=== PATIENT | male | born 1960 | race Caucasian/White ===

== ENCOUNTER 2024-06-22 06:03 | Day surgery (SDC) | payer BC, SELFPAY ==
[2024-06-22] VITALS (18 sets, daily range): BP systolic 129–154; BP diastolic 46–85; BMI 27.1
[2024-06-22] MEDS: NSS 257 ML IV (06:30)
[2024-06-22 08:30] LABS: ACT-LR - POC 245 Seconds (116-155)
[2024-06-22] MEDS: NSS 1000 IV (09:20)
--- NOTE | 2024-06-22 11:42 | ITS.CL.CATH ---
Consulting Marine Engineer - Catheterization
Cardiac Catheterization
Procedure Report:
RIGHT AND LEFT HEART CATHETERIZATION
Date of Procedure: June 22, 2024
Primary Care Physician: Dr. Ros Parker
Primary [employer]: Dr. Jimy Garza
Procedures performed:
1: Coronary angiography
2: Left ventricular hemodynamic assessment
3: Right heart catheterization
INDICATION: The patient is a 64-year-old man who is referred for right and left heart cardiac catheterization in light of known significant aortic valve disease, new exertional chest burning/tightness, and an episode of syncope. The syncopal
episode was encountered while riding his bike and he has had no further exertional presyncope or syncope.
ACCESS: The patient was prepped and draped in usual sterile fashion. A 6 Chilean sheath was placed in the right radial artery using the Seldinger over the wire technique. A 5 Chilean sheath was then placed in the right brachial vein using the same
technique.
HEMODYNAMIC FINDINGS (mmHg):
RA(a,v,m): 12, 11, 10
RV(s/d,EDP): 33/11, 14
PA(s/d/m): 35/17, 24
PCWP(a,v,m): 17, 20, 17
LV(s/d,EDP): 154/12, 17
Ao(s/d,m): 122/68, 91
Oxygen Saturations (mg/dl):
PA: 72% on room air
LV: 93% on room air
Cardiac Output/Index (l/min / l/min/m2):
Estimated Laron Method: 5.7 / 2.8
VALVE HEMODYNAMICS:
Aortic Valve
peak to peak gradient (mmHg): 32
mean gradient (mmHg): 34
valve area (cm2): 1.1
ANGIOGRAPHIC FINDINGS:
Single-plane Left Ventriculography performed in the GONZALES projection: Not done. Normal LVEF by recent echo.
Coronary Angiography:
Dominance: Right
Left Main: Large-caliber, normal.
Left Anterior Descending: The LAD is a large-caliber vessel that has a smooth 10% proximal stenosis. The LAD has a focal 70% stenosis followed by a tandem 40% mid stenosis just after the takeoff of the major diagonal branch which is widely patent
with moderate nonobstructive luminal irregularities.
Left Circumflex: The left circumflex is a large-caliber nondominant system that gives rise to 3 major branches. The first major obtuse marginal branch is a large-caliber vessel that is widely patent. The second obtuse marginal branch is a smaller
bifurcating vessel that is also widely patent. The circumflex terminates in a left-sided posterior left ventricular branch which is large caliber and widely patent without focal disease.
Right Coronary: The right coronary artery has a vertical anterior takeoff. There is a smooth proximal 30 to 40% stenosis. The remainder the vessel as only mild luminal irregularities and gives rise to a relatively large caliber posterior
descending artery that has normal flow.
Fluoroscopy Time (min): 9.1
Radiation Dose (mGy): 45
DAP (Gy.cm2): 32
Closure device: None
Complications: None
ASSESSMENT:
1: Single-vessel obstructive disease involving the mid LAD as described above.
2: Moderate aortic valvular stenosis.
3: Of note the patient developed a left bundle branch block with passage of a wire and catheter into the left ventricle. This persisted with intermittent narrow QRS during the case but at the end of the case he had a persistent left bundle branch
block on telemetry.
CONCLUSIONS and RECOMMENDATIONS:
1: Continue medical therapy for coronary artery disease.
2: Will present this case to the valve team Thursday morning to discuss the optimal treatment strategy. With his history of syncope I think it is reasonable to consider surgical aortic valve replacement with WILSON to the LAD. That said his syncope
certainly could have been vagally mediated and therefore stenting the LAD with clinical follow-up and then later aortic valve intervention could also be considered. Will discuss with his primary knife machine operator Dr. Garza and come up with a plan
after the valve team conference on Thursday.
3: In light of his persistent left bundle branch block, I will hold his metoprolol for now. The patient is instructed not to engage in vigorous activity until we have definitively treated his coronary disease and possibly his valve.
Gurmeet Bryant M.D.
Copy to: Dr. oRs Parker
== END 2024-06-22 13:10 | disposition home or self-care (01) ==
LOC: CATH 06:03
PROVIDERS: ATTENDING PHYSICIAN Internal Medicine Interventional Cardiology; FAMILY PHYSICIAN Family Medicine; OTHER PHYSICIAN Internal Medicine Cardiovascular Disease
DX: I25.10 Atherosclerotic heart disease of native coronary artery without angina pectoris (principal); R55 Syncope and collapse; I35.9 Nonrheumatic aortic valve disorder, unspecified; I44.7 Left bundle-branch block, unspecified; I35.0 Nonrheumatic aortic (valve) stenosis
CPT/HCPCS: 85347; 93005; 93460; C1894; Q9967

== ENCOUNTER 2024-07-06 09:07 | Day surgery (SDC) | payer BC, SELFPAY ==
[2024-07-06] VITALS (19 sets, daily range): BP systolic 116–144; BP diastolic 64–81; BMI 28.0
[2024-07-06 10:58] LABS: ACT-LR - POC 313 Seconds (116-155)
--- NOTE | 2024-07-06 11:32 | ITS.CL.ANGIO ---
Senior Compensation Consultant - Angioplasty
Angioplasty
Procedure Report:
LEFT HEART CATHETERIZATION
Date of Procedure: July 06, 2024
Procedures performed:
1: Percutaneous coronary intervention left anterior descending artery with placement of 2 overlapping drug-eluting stents (2.75 x 15 mm Bradford and 2.5 x 26 mm Ziggy)
Primary Care Physician: Dr. Ros Parker
Primary Supervisor Model Making: Dr. Jimy Garza
INDICATION: The patient is a 64-year-old man with a past medical history of aortic stenosis and new exertional chest discomfort suspicious for angina who underwent cardiac catheterization on June 22 which revealed focal high-grade mid LAD disease
along with moderate aortic stenosis and the incidental finding of a intermittent left bundle branch block. 3-day Holter after the cath showed 3 continuous days of left bundle branch block with no significant pauses. Today he is in a narrow QRS
rhythm. He was presented to the valve team and after presentation we have elected to proceed with PCI of the LAD. The patient was pretreated with aspirin and Plavix.
ACCESS: The patient was prepped and draped in usual sterile fashion. A 6 Hungarian sheath was placed in the right radial artery using the Seldinger over the wire technique.
HEMODYNAMIC FINDINGS (mmHg):
Ao(s/d,m): 114/68, 87
ANGIOGRAPHIC FINDINGS:
Coronary Angiography:
Please refer to full diagnostic cath performed 06/22/2024.
Percutaneous Coronary Intervention (PCI): The patient was pretreated with aspirin and Plavix. Unfractionated heparin was given. The left main was engaged with a 6 Hungarian XB 3.5 guiding catheter. A Hi-Torque floppy wire was easily advanced across
the lesion and into the distal vessel. Predilation was performed with a 2.5 x 20 mm balloon. Next a 2.5 x 26 mm Ziggy drug-eluting stent was deployed distally. A second 2.75 x 15 mm Ziggy stent was deployed proximally taking care to avoid jailing
the diagonal branch. The distal portion of the stent was postdilated high-pressure 16 emerson with a 2.5 mm diameter balloon. The more proximal section including the overlap was postdilated with a 2.75 mm diameter noncompliant balloon at 16 emerson. Care
was taken to stay within the stented margins.
FINAL RESULT: 0% in-stent residual stenosis with an excellent angiographic result and LUKE-3 flow in all vessels.
Fluoroscopy Time (min): 7.7
Radiation Dose (mGy): 739
DAP (Gy.cm2): 40
Closure device: None. A TR band was applied for hemostasis at the right wrist.
Complications: None.
ASSESSMENT:
1: Successful PCI of the LAD with placement of 2 overlapping stents as described above.
CONCLUSIONS and RECOMMENDATIONS:
1: Routine post drug-eluting stent medical therapy and monitoring with uninterrupted aspirin and Plavix for a year and aspirin 81 mg daily indefinitely.
2: Clinical follow-up as planned with surveillance echoes for aortic stenosis.
Gurmeet Bryant M.D.
Copy to: Dr. Ros Parker
[2024-07-06 13:13] LABS: ACT-LR - POC > 397 Seconds (116-155)
--- NOTE | 2024-07-06 15:17 | W.PN.UPDATE ---
Update Note
Progress Note Update
64 yo WM s/p PCI LAD x 2 Jorge (same day). He feels good, no cp, sob, cyndee diet, R rad site c/d/i, EKG SB no ST changes. He will continue DAPT ASA/Plavix. Cardiac rehab c/s. Activity restrictions reviewed. He will f/u Dr. Garza in 2 weeks. He is for
d/c home after 4pm.
Procedures performed:
1: Percutaneous coronary intervention left anterior descending artery with placement of 2 overlapping drug-eluting stents (2.75 x 15 mm Ziggy and 2.5 x 26 mm Ziggy)
Primary Care Physician: Dr. Ros Parker
Primary Stave Hewer: Dr. Jimy Garza
INDICATION: The patient is a 64-year-old man with a past medical history of aortic stenosis and new exertional chest discomfort suspicious for angina who underwent cardiac catheterization on June 22 which revealed focal high-grade mid LAD disease
along with moderate aortic stenosis and the incidental finding of a intermittent left bundle branch block. 3-day Holter after the cath showed 3 continuous days of left bundle branch block with no significant pauses. Today he is in a narrow QRS
rhythm. He was presented to the valve team and after presentation we have elected to proceed with PCI of the LAD. The patient was pretreated with aspirin and Plavix.
== END 2024-07-06 15:54 | disposition home or self-care (01) ==
LOC: CATH 09:07
PROVIDERS: ATTENDING PHYSICIAN Internal Medicine Interventional Cardiology; FAMILY PHYSICIAN Family Medicine; OTHER PHYSICIAN Internal Medicine Cardiovascular Disease
DX: I25.10 Atherosclerotic heart disease of native coronary artery without angina pectoris (principal); R07.89 Other chest pain; I35.0 Nonrheumatic aortic (valve) stenosis; I44.7 Left bundle-branch block, unspecified; I10 Essential (primary) hypertension; E78.00 Pure hypercholesterolemia, unspecified; Z79.02 Long term (current) use of antithrombotics/antiplatelets; Z79.82 Long term (current) use of aspirin
CPT/HCPCS: C1725; C1769; C1894; C1887; 85347; 93005; C1874; C9600; Q9967

== ENCOUNTER 2025-01-23 12:01 | Inpatient (IN) | payer BC, SELFPAY ==
[2025-01-23] VITALS (11 sets, daily range): BP systolic 101–117; BP diastolic 65–82; BMI 27.3
--- NOTE | 2025-01-23 10:09 | W.PN.CARDCBS ---
Today's Communication / Plan
-
LHC
trend troponin/cpk to peak
GDMT for heart failure
Impression / Plan
-
This is the H&P update
H&P scanned into chart
PCP: Fani Mayen MD
CDY: Jimy Garza MD
64 y/o white male, PMH sig for CAD, recent LAD PCI w/2 overlapping DONNELL (07/06/24), LBBB, moderate , taking DAPT w/asa, plavix.
Presented to [facility] ER after exertional chest pain on exercise bike. He felt like he was going to pass out, laid down on a bed and called 911. He was hypotensive and ashen. CXR was suspected to be pulmonary edema. HS troponin at 4646, CPK 4961, MB
600 and still trending. Echo this morning with mod-severe LVS dysfunction, EF 25-30%, anteroseptal HK, mod-sev (PG/MG 58.5/37.2, CHIDI 0.8cm2). This is worse than echo 12/05/24 where EF was 55-60%, no WMA and mod (PG/MG 56.7/33.3, CHIDI 0.78cm2).
He was started on heparin and transferred today for [facility].
IMPRESSION:
Acute NSTEMI
CAD, LAD PCI w/2 overlapping DONNELL (07/06/24- at )
LBBB
New cardiomyopathy
New acute systolic HFrEF 25-30%
Bicuspid AV w/Moderate-severe
Carotid disease, s/p R CEA (2017), LICS 50-70%
HTN
HLD
PLAN:
Exertional near syncope while exercising
Echo worsened with sig drop in EF, mod-sev
Troponin/CPK sig elevated and still trending- monitor to peak
On DAPT w/asa, plavix- got doses this morning
Heparin gtt for now
Suspected LAD in stent restenosis in combination with moderate
[facility] today
continue to trend trop/CPK to peak
Holding lisinopril d/t hypotension/SBP low 100s
will need GDMT for new acute systolic HFrEF- dapagliflozin 10/d, add BB, adjust lisinopril as tolerated for BP
check lipid profile and continue rosuvastatin 40/d
cardiac rehab consult
followup with Dr. Garza at d/c
Echo 01/23/25-
1. Left ventricular ejection fraction, by visual estimation, is 25 to 30%.
2. Moderately to severely decreased left ventricular systolic function.
3. Mid-Distal Septal; Mid-Distal AnteroSeptal; Mid-Distal Anterior Severe Hypokinesis.
4. Moderate to severe aortic valve stenosis. Mild aortic regurgitation.
5. AoV velocity of 3.83 m/s; Peak aortic valve gradient = 58.5 mmHg; Mean gradient = 37.2 mmHg; AoV Area by continuity equation = 0.80 cm2; AoV Dimensionless Index = 0.24.
6. Concentric remodeling of the left ventricle.
7. Grade 1 LV diastolic dysfunction, impaired relaxation.
8. Normal right ventricular size and systolic function.
9. Right atrial pressure of (3 mmHg), the estimated right ventricular systolic pressure is normal at (40.0 mmHg).
10. Normal left atrium by volume index (25.9 mL/m2) and normal right atrium by area (11.0 cm2).
11. Moderate mitral valve regurgitation is seen.
12. Compared to 11/2024, ejection fraction is reduced (was 55-60%)
Progress Note - Embossing Press Operator Molded Goods
Subjective
Date of Service: January 23, 2025
[2025-01-23 12:19] LABS: Total CK 3172 U/L (55-170)
--- NOTE | 2025-01-23 13:26 | PTCARENOTE ---
Patient admitted from the [facility] after transferred here for cardiac cath from [facility]. Radial band in place right wrist, strong radial pulse palpable with pulse ox of 95% on the right hand, no signs of bleeding or hematoma. Oriented to the room and
plan of care. Dr. Canas in to speak with the patient after meeting with the family. TAVR coordinator in to speak with the patient. SR on the monitor, monitoring VS- patient eating lunch now, call carballo in reach.
--- NOTE | 2025-01-23 14:12 | CONSULT.CT ---
Consultation
-
Date/Time Consultation Requested: 01/23/25
Date/Time Consultation Performed: 01/23/25
Requesting Provider: Missael
Performing Provider: Nora Baldwin PA-C for Dr. Pedro Foy
Reason for Consultation: AVR eval
Patient History
Physicians
Family Physician: Fani Mayen
Outpatient Senior Storage Administrator: Jimy Garza
Inpatient Senior Storage Administrator: Missael/LISET
History of Present Illness
Patient is a very pleasant 64-year-old male with past medical history of hypertension, hyperlipidemia, bilateral carotid stenosis status post right CEA, CAD status post PCI to the LAD in June 2024, and known moderate bicuspid aortic stenosis who
presented to [place] after a near syncopal episode while riding his bike. Repeat echo at [place] this morning demonstrated a now reduced EF of 25 to 30% with moderate to severe , CHIDI 0.8 cm� and mean gradient of 37 mmHg. Troponins were
elevated, ruling in for non-STEMI. patient was transferred to [place] for left heart catheterization which demonstrated a patent LAD stent, no significant changes in CAD. We are asked to evaluate him for aortic valve replacement.
Past Medical History
Past Medical History: Other
Hypertension
Hyperlipidemia
Bilateral carotid stenoses, status post right carotid endarterectomy in 2017
Bicuspid aortic valve with at least moderate stenosis
Past Surgical History
Right carotid endarterectomy 2016
Dental History
Follows with his regular dentist every 6 months--no known active issues (Dr. Sharyn Caputo- [facility])
Family History
Father: Still Living (had bypass surgery in his 70s)
Family Medical History: CAD
Social History
Alcohol: Occasional (1-2/week)
Drug: None
Tobacco: Non-Smoker (never)
Personal: (, Tatianna, at bedside)
Living: With Family
Employment: Employed
Allergies
Allergy/AdvReac Type Severity Reaction Status Date / Time
No Known Allergies Allergy Verified 01/23/25 10:54
Home Medications
�Medication �Instructions �Recorded �Confirmed �Type
aspirin 81 mg capsule 81 mg PO DAILY 06/22/24 01/23/25 History
lisinopril 10 mg tablet 10 mg PO DAILY 06/22/24 01/23/25 History
magnesium 250 mg tablet 250 mg PO DAILY 06/22/24 01/23/25 History
melatonin 10 mg tablet 10 mg PO HS PRN sleep 06/22/24 01/23/25 History
rosuvastatin 40 mg tablet 40 mg PO DAILY 06/22/24 01/23/25 History
vit [id number] D3-calc cit-Zn 1,000 mg PO DAILY 06/22/24 01/23/25 History
clopidogrel 75 mg tablet (Plavix) 75 mg PO DAILY 07/06/24 01/23/25 History
Review of Systems
-
History Source: Patient
General: Denies Fever, Fatigue or Chills
HEENT: Denies Visual Changes or Hoarseness
Respiratory: Denies SOB or LUX
Cardiac: Reports Chest Pain and Known Vascular Disease; Denies Edema
Abdomen/GI: Denies Nausea or Vomiting
: Denies Dysuria
Musculoskeletal: Denies Arthralgias or Joint Pain
Skin: Denies Itching
Neurological: Reports Other (near syncope--lightheadedness); Denies CVA, TIA, Weakness or Seizures
Vascular: Denies Claudication
Physical Exam
Vital Signs
Temp 98.2 F 01/23/25 10:26
Temp route: Oral 01/23/25 10:26
Pulse 99 01/23/25 13:30
Rhythm: Normal sinus rhythm 01/23/25 12:15
With- Bundle Branch Block Confi 01/23/25 12:15
Resp Rate 19 01/23/25 10:26
Blood pressure 104/74 01/23/25 12:10
MAP (cuff-Pawel Monitor) 83 01/23/25 12:10
SaO2 93 01/23/25 13:15
Oxygen Mode of Delivery Room air 01/23/25 10:26
Can the patient verbally communicate their pain? Yes 01/23/25 12:29
Actual Weight 86.4 kg 01/23/25 10:57
Body Mass Index (BMI) 27.3 01/23/25 10:57
Labs
Troponin I 39.700 ng/ml H* 01/23/25 10:39
Diagnostic Studies
Echo 01/23/25-[facility]
1. Left ventricular ejection fraction, by visual estimation, is 25 to 30%.
2. Moderately to severely decreased left ventricular systolic function.
3. Mid-Distal Septal; Mid-Distal AnteroSeptal; Mid-Distal Anterior Severe Hypokinesis.
4. Moderate to severe aortic valve stenosis. Mild aortic regurgitation.
5. AoV velocity of 3.83 m/s; Peak aortic valve gradient = 58.5 mmHg; Mean gradient = 37.2 mmHg; AoV Area by continuity equation = 0.80 cm2; AoV Dimensionless Index = 0.24.
6. Concentric remodeling of the left ventricle.
7. Grade 1 LV diastolic dysfunction, impaired relaxation.
8. Normal right ventricular size and systolic function.
9. Right atrial pressure of (3 mmHg), the estimated right ventricular systolic pressure is normal at (40.0 mmHg).
10. Normal left atrium by volume index (25.9 mL/m2) and normal right atrium by area (11.0 cm2).
11. Moderate mitral valve regurgitation is seen.
12. Compared to 11/2024, ejection fraction is reduced (was 55-60%)
[facility] 01/23/25 ()--full report unavailable to me now, but per label maker [employer]--stable CAD.
Exam
General: Well Developed, Well Nourished and No Apparent Distress
HEENT: Normocephalic, Anicteric and Moist Mucous Membranes
Neck: Trachea Midline; Negative JVD or Mass
Respiratory: Clear; Negative Wheezes, Crackles or Rhonchi
Cardiac: Regular Rhythm and Murmur (+systolic 3/6)
GI: Soft and Non Tender
Rectal: Deferred by Provider
Skin: Warm and Dry
Neuro: Nonfocal/Grossly Intact
Psych: Calm
Assessment / Plan
-
severe aortic stenosis
exertional near syncope
new acute HFrEF (25-30%)
NSTEMI
- Pt amenable to proceeding with further eval for aortic valve replacement--at this time will order US carotids, CTA chest, panelipse & labs. Awaiting echo films from [facility]. Pt did take plavix this morning, therefore will need approx 5 day washout
prior to proceeding with surgery. Pt expressed interest in going home and returning for surgery--will defer to cardiology (and pt aware of that).
- Full eval by Dr. Foy to follow.
Data Reviewed
-
EKG: Report Reviewed by me
Plaster Foreman: Image Personally Visualized and interpreted and Discussed with Physician
Echo: Report Reviewed by me
Labs: Labs Reviewed by me
--- NOTE | 2025-01-23 14:51 | CM ---
Reviewed chart. Met with Mr. Prasad to review discharge plans. He states prior to admission he resides alone in a two story home with two steps to enter. He states he has a fullflight of steps to get to bedroom/full bathroom. He states he does
not have a bathroom on the lower level. He states prior to admission he was independent with ambulation and adls. He states he does not have any DME in the home. He states he does not know if he has a prescription plan. Telephone call to [facility]. Telephone call to ([phone]) to check on coverage for medications. The card he has is a discount card, not a prescription plan. Medical work-up in progress. The discharge plan is to go to SNF/Rehab. when medically stable.
--- NOTE | 2025-01-23 14:52 | ITS.CL.CATH ---
First Coat Sander - Catheterization
Cardiac Catheterization
Procedure Report:
LEFT HEART CATHETERIZATION
Date of Procedure: January 23, 2025
Referring: Dr. Villa Tello
PROCEDURES:
1. Left heart catheterization with coronary and single-plane left ventriculography
INDICATION: This is a 64-year-old gentleman with a complex recent medical history. He has a known bicuspid aortic valve and developed exertional chest tightness and throat tightness in May 2024. He experienced a syncopal episode while riding his
Peloton bike. He had known aortic stenosis with a mean aortic valve gradient measuring 34 mmHg at the time of coronary angiography on 06/22/2024. Coronary angiography at that time was notable a focal 70% and tandem 40% stenoses in the mid to distal
LAD following the origin of the major diagonal branch which had moderate noncritical luminal irregularities. There was a proximal 30 to 40% stenosis in the RCA. He underwent successful stenting of the LAD on July 06, 2024 with placement of
overlapping 2.75 x 15 mm and 2.5 x 26 mm Louisa stents. He did reasonably well since that time. Several weeks ago he experienced some exertional throat tightness and was seen by Dr. Garza. His most recent echocardiogram on 12/05/2024 suggested
stable aortic valve gradients with presence of a bicuspid valve and mean gradient of 33 mmHg.
This past weekend he was pushing himself on the Peloton and he began feeling poorly. He noticed some vague chest tightness and dizziness. He laid down on his bed where his found him minimally responsive. 911 was called and when EMS arrived
he was improving and more interactive. He was pain-free and was admitted to [facility] where his subsequent CPKs increased to 4000 and troponin increased to 4000. An echocardiogram earlier today was notable for new LV dysfunction with a
visually estimated ejection fraction of 25-30% with mid to distal anterior severe hypokinesis and a mean aortic valve gradient of 32 mmHg. He is now referred for repeat coronary angiography in the setting of new LV dysfunction and elevated troponin.
ACCESS: Right radial artery, 6 Maltese sheath
HEMODYNAMICS : (mmHg)
AO (s/d) : 92/67, 79
LV (s/d) : 130/18
LVEDP : 25
AORTIC VALVE:
Mean Gradient: 30 mmHg
CORONARY FINDINGS
DOMINANCE: Right
LEFT MAIN: Normal
LEFT ANTERIOR DESCENDING: The LAD arises normally from the left main and runs in the anterior interventricular groove. There are overlapping Ziggy stents in the mid LAD beyond a moderate caliber diagonal branch. The overlapping stented segment is
widely patent. The LAD beyond the stented segment is free of focal obstructive coronary disease and angiographically it looks quite stable when compared to May 2024. The only sizable diagonal branch arises just proximal to the mid LAD stents and
has minor ostial narrowing and 60% stenosis in the mid vessel.
CIRCUMFLEX: The circumflex is a medium caliber nondominant vessel. OM1 is very small and subtotally occluded near its origin. This was noted on the prior angiogram. OM 2 is a moderate caliber vessel supplying a large vascular territory and is
widely patent. The circumflex then continues in the AV groove supplying a bifurcating posterolateral branch and terminates in a moderate-sized posterolateral branch
RIGHT CORONARY ARTERY: The right coronary artery is a dominant vessel with a 40% proximal stenosis and 40% distal stenosis. The PDA has a 40% proximal stenosis. Angiographically the right coronary artery looks angiographically largely unchanged
when compared to the most recent catheterization from May 2025
VENTRICULOGRAPHY: Left ventriculography is performed in an GONZALES projection. The digital single-plane left ventricular ejection fraction is visually estimated at 40% with anterolateral and apical hypokinesis noted
RADIATION SUMMARY: Fluoro Time (min): 3.5, Dose (mGy): 378, DAP (Gy.cm2) : 30.8
Closure Device: TR band
CONCLUSIONS
1. Stable coronary anatomy with patent overlapping mid LAD stents
2. New LV dysfunction
3. Probable severe symptomatic aortic stenosis
RECOMMENDATIONS
1. It is difficult to correlate significant elevation in troponin and CPK to resting moderate-severe aortic stenosis by mean gradient assessment. However, his symptoms are suggestive that the aortic stenosis is likely clinically relevant causing
near syncopal symptoms as he was pushing himself to high levels of exercise on his Peloton bike. He experienced similar episodes of syncope/near syncope in the summer 2023.
2. New LV dysfunction: Will repeat echocardiogram with contrast assessment of LV function
Copy to: Dr. Jimy Garza
--- NOTE | 2025-01-23 15:22 | CM ---
Reviewed chart. Met with and Mrs. Tripp to review discharge plans. He states prior to admission he resides with his spouse in a two story home with two steps to enter. He states he has a full flight of steps to get to bedroom/full
bathroom. He states he has a powder room on the first floor. He states prior to admission he was independent with ambulation and adls. He states he does not have any DME in the home. He states he has a prescription plan and uses [facility].
Medical work-up in progress. The discharge plan is to return home with his spouse when medically stable.
--- NOTE | 2025-01-23 16:15 | PTCARENOTE ---
Radial band off of the right wrist, dressing is dry and intact. OOB to the bathroom and voided qs. Tolerated sitting oob in the chair, denies any chest pain or sob. Labs drawn, waiting for CT angio.
[2025-01-23 16:43] LABS: ALT (SGPT) 68 U/L (0-50); AST (SGOT) 375 U/L (17-59); Albumin 4.1 g/dl (3.5-5.0); Alkaline Phosphatase 48 U/L (38-126); Blood Urea Nitrogen 12 mg/dl (9-20); Calcium 9.2 mg/dl (8.4-10.2); Carbon Dioxide 30 mmol/L (22-30); Chloride 99 mmol/L (98-107); Estimated Creatinine Clearance 110 ml/min; Glucose 128 mg/dl (70-99); Potassium 3.9 mmol/L (3.5-5.1); Sodium 134 mmol/L (135-145); Total Bilirubin 1.1 mg/dl (0.2-1.3); eGFR > 60.00
[2025-01-23 18:25] LABS: Urine Albumin Negative (Neg - Trace); Urine Bilirubin Negative (Negative); Urine Character Clear (Clear); Urine Color Yellow; Urine Glucose Negative (Negative); Urine Ketone Negative (Negative); Urine Leukocyte Negative (Negative); Urine Nitrite Negative (Negative); Urine Occult Blood Negative (Negative); Urine Urobilinogen Negative (Neg - 1+)
--- NOTE | 2025-01-23 20:07 | PTCARENOTE ---
Received patient at change of shift. A&Ox3. Sitting with bedside. Vitals stable. Room air. Right radial site clean, dry, and intact. No ecchymosis or hematoma present at this time. Discussed plan of care for evening. Patient verbalized
understanding. Call carballo within reach.
[2025-01-24 05:28] VITALS: BP 104/63
[2025-01-24 06:12] LABS: APTT 27.8 Sec (23.4-35.0); INR 1.08; PT 14.3 Sec (11.4-14.6)
[2025-01-24 06:15] LABS: Hematocrit 37.1 % (39.0-52.0); Hemoglobin 12.9 g/dL (13.0-18.0); Mean Corp Hgb Conc. 34.8 g/dL (33.0-37.0); Mean Corpuscular Hgb 31.2 pg (27.0-31.0); Mean Corpuscular Volume 89.6 fL (80.0-94.0); Mean Platelet Volume 9.5 fL (7.4-10.4); Platelet Count 158 10^3/uL (130-400); Red Blood Cell Count 4.14 10^6/uL (4.70-6.10); Red Cell Dist. Width 12.3 % (11.5-14.5)
[2025-01-24 06:17] LABS: ALT (SGPT) 50 U/L (0-50); AST (SGOT) 181 U/L (17-59); Albumin 3.3 g/dl (3.5-5.0); Alkaline Phosphatase 47 U/L (38-126); Blood Urea Nitrogen 11 mg/dl (9-20); Calcium 9.1 mg/dl (8.4-10.2); Carbon Dioxide 27 mmol/L (22-30); Chloride 103 mmol/L (98-107); Estimated Creatinine Clearance 110 ml/min; Glucose 98 mg/dl (70-99); HDL Cholesterol 51 mg/dl; LDL Cholesterol, Calculated 71 mg/dl; Potassium 4.2 mmol/L (3.5-5.1); Sodium 135 mmol/L (135-145); Total Bilirubin 1.1 mg/dl (0.2-1.3); Total CK 804 U/L (55-170); Total Cholesterol 144 mg/dl (50-199); Total Protein 5.3 g/dl (6.3-8.2); Triglyceride 114 mg/dl (10-149); Very Low Density Lipoprotein 22 mg/dl (0-30); eGFR > 60.00
[2025-01-24 06:51] LABS: CKMB 32.2 ng/ml (0.0-3.4)
[2025-01-24 07:54] VITALS: BP 101/64
--- NOTE | 2025-01-24 08:21 | W.PN.CARDCBS ---
Addendum entered and electronically signed by Brant Hooper DO 01/24/25 13:16:
I saw and examined the patient.
The Watermaster's note was reviewed and I agree with the note.
Comment:
Plan:
Reviewed cardiac catheterization with patient
Echo pending today to reevaluate aortic stenosis gradients.
Patient being evaluated for inpatient versus outpatient SAVR, cont plavix washout
Discussed with family at bedside.
Original Note:
Today's Communication / Plan
-
Echo pending to re-eval gradients
Considering d/c to home vs inpatient Plavix washout for SAVR
Impression / Plan
-
PCP: Fani Mayen MD
CDY: Jimy Garza MD
Impression:
Admitted to [facility] with near syncope and hypotension 01/22/25
Transferred to for cardiac cath 01/23/25
Nonischemic myocardial injury Troponin elevation due to severe
peak Troponin at [facility] 4646
CAD s/p LAD PCI w/2 overlapping DONNELL at 07/06/24
patent by cardiac cath 01/23/25
LBBB
New nonischemic cardiomyopathy EF 25-30%
Trileaflet, but functionally bicuspid AV with moderate peak/mean 56.7/33.3 mmHg and CHIDI 0.78 cm sq by echo at [facility] 12/05/24
Carotid disease, s/p R CEA (2017), LICS 50-70%
HTN
HLD
Echo 12/05/24: [facility] study, EF 55 to 60%, calcified anatomically trileaflet but functionally bicuspid AV with moderate AAS peak/mean 56.7/33.3 mmHg and CHIDI 0.78 cm sq, mild MR
Echo 01/24/25: Study pending
PLAN:
-Patient with patent previously placed LAD stents by cath 01/23/25 and otherwise stable coronary anatomy despite Troponin up to 4646 at [facility] which is equivalent to about 46 using the Troponin assay. Symptoms on presentation and Troponin might be due
to which was moderate by last echo 12/05/24. MPG at time of cath 01/23/25 was 30 mmHg.
-Recheck echo 01/24/25.
-Patient was seen by the CT surgery team and is being evaluated for SAVR.
-Patient is s/p LAD PCI 07/06/24 and has been taking aspirin and Plavix since then. Last dose of Plavix was 01/23/25 AM
-Pending echo patient might be stable for d/c to home while he awaits Plavix washout with the provision that he avoid strenuous activity and this would be patient's preference.
-Outpatient dose of aspirin has been continued
-Outpatient dose of lisinopril 10 mg daily has been stopped due to hypotension and
-Patient is not chronically on BB and will not start due to hypotension
-Eventually start SGLT-2 once post-op and stable
-LDL 71 and outpatient dose of Crestor 40 mg daily has been continued
-LVEDP 25, no evidence of acute HF
HPI: 64 y/o white male, PMH sig for CAD, recent LAD PCI w/2 overlapping DONNELL (07/06/24), LBBB, moderate , taking DAPT w/asa, plavix.
Presented to [facility] ER after exertional chest pain on exercise bike. He felt like he was going to pass out, laid down on a bed and called 911. He was hypotensive and ashen. CXR was suspected to be pulmonary edema. HS troponin at 4646, CPK 4961, MB
600 and still trending. Echo this morning with mod-severe LVS dysfunction, EF 25-30%, anteroseptal HK, mod-sev (PG/MG 58.5/37.2, CHIDI 0.8cm2). This is worse than echo 12/05/24 where EF was 55-60%, no WMA and mod (PG/MG 56.7/33.3, CHIDI 0.78cm2).
He was started on heparin and transferred today for [facility].
Progress Note - Medical Billing Supervisor
Subjective
Date of Service: January 24, 2025
He feels well, no chest pain or near syncope
Objective
Labs:
01/24/25 05:35
01/24/25 05:35
Labs
Hgb 12.9 g/dL (13.0-18.0) L 01/24/25 05:35
Hct 37.1 % (39.0-52.0) L 01/24/25 05:35
Plt Count 158 10^3/uL (130-400) 01/24/25 05:35
PT 14.3 Sec (11.4-14.6) 01/24/25 05:35
INR 1.08 01/24/25 05:35
APTT 27.8 Sec (23.4-35.0) 01/24/25 05:35
Sodium 135 mmol/L (135-145) 01/24/25 05:35
Potassium 4.2 mmol/L (3.5-5.1) 01/24/25 05:35
BUN 11 mg/dl (9-20) 01/24/25 05:35
Creatinine 0.7 mg/dL (0.7-1.3) 01/24/25 05:35
Glucose 98 mg/dl (70-99) 01/24/25 05:35
Troponins
01/23/25 01/24/25
10:39 05:35
Troponin I 39.700 H* 32.300 H*
Vital Signs and I&O:
Vital Signs
Temp Pulse Resp BP Pulse Ox
98.7 F 94 20 104/63 95
01/24/25 07:54 01/24/25 06:30 01/24/25 07:54 01/24/25 05:28 01/24/25 07:54
Vital Signs
Temp Pulse Resp BP Pulse Ox
98.7 F 94 20 104/63 95
01/24/25 07:54 01/24/25 06:30 01/24/25 07:54 01/24/25 05:28 01/24/25 07:54
Intake & Output
01/22/25 01/23/25 01/24/25 01/25/25
06:59 06:59 06:59 06:59
Intake Total 240 / 240
Balance 240 / 240
Physical Exam
Physical Exam
GEN: AAOx3
HEENT: MMM
LUNGS: RA, no audible wheeze
CV: SR on tele.
ABD: ND
EXT: No edema B/L
NEURO: Gross non-focal
SKIN: No rash
[2025-01-24] MEDS: CRESTOR 40 MG PO (08:26)
[2025-01-24] MEDS: LOW STRENGTH ASPIRIN 81 MG PO (08:26)
[2025-01-24 09:17] LABS: Glycohemoglobin (HgbA1c) 5.5 % (4.0-5.6)
--- NOTE | 2025-01-24 09:27 | PTCARENOTE ---
received patient this am sitting up in chair eating breakfast talking on his phone. monitor shows NSR, BBC. VSS. patient is aware of testing that needs to be done today. INT x 2 flushes well.
--- NOTE | 2025-01-24 11:02 | CM ---
Reviewed chart. Met with and Mrs. Tripp to review discharge plans. He states he is feeling well. Prior to admission he resides with his spouse in a two story home with two steps to enter. He has a full flight of steps to get to
bedroom/full bathroom. He has a powder room on the first floor. Prior to admission he was independent with ambulation and adls. He does not have any DME in the home. He has a prescription plan and uses [facility]. Medical work-up in progress.
The discharge plan is to return home with his spouse when medically stable.
[2025-01-24 11:16] VITALS: BP 99/65
--- NOTE | 2025-01-24 13:32 | PTCARENOTE ---
CT head and neck completed. patient going to dept. for Echo now.
[2025-01-24 15:41] VITALS: BP 93/60
[2025-01-24 19:31] VITALS: BP 94/62
--- NOTE | 2025-01-24 20:21 | PTCARENOTE ---
Received patient at change of shift. A&OX3. Vitals stable. Right radial site CAROLYN. Discussed plan of care for evening. Patient verbalized understanding. Call carballo within reach.
[2025-01-24 22:32] VITALS: BP 111/67
[2025-01-25 07:07] VITALS: BP 95/58
--- NOTE | 2025-01-25 08:22 | W.PN.CARDCBS ---
Addendum entered and electronically signed by Bucky Rueda MD 01/25/25 09:44:
I saw and examined the patient.
The Nylon Winder's note was reviewed and I agree with the note.
Comment: Briefly, 64-year-old man past medical history of aortic stenosis in the setting of functionally bicuspid aortic valve, newly identified CM with EF (25-30%) and CAD with prior PCI who presents after an episode of exertional syncope
He is being worked up for SAVR which is tentatively planned for later this week
Continue ASA/high intensity statin for known CAD
Plavix on hold while awaiting OR
GDMT for NICM has been limited due to bradycardia/hypotension
Ideally would start BB and SHELBIE post-op if able
Rest per Rosa Eatmahin
Original Note:
Today's Communication / Plan
-
P2Y12 assay in AM
Scheduled for surgical AVR on Thursday
Impression / Plan
-
PCP: Fani Mayen MD
CDY: Jimy Garza MD
Impression:
Admitted to [facility] with near syncope and hypotension 01/22/25
Transferred to for cardiac cath 01/23/25
Nonischemic myocardial injury Troponin elevation due to severe
peak Troponin at [facility] 4646
CAD s/p LAD PCI w/2 overlapping DONNELL at 07/06/24
patent by cardiac cath 01/23/25
LBBB
New nonischemic cardiomyopathy EF 25-30%
Trileaflet, but functionally bicuspid AV with moderate peak/mean 56.7/33.3 mmHg and CHIDI 0.78 cm sq by echo at [facility] 12/05/24
Carotid disease, s/p R CEA (2017), LICS 50-70%
HTN
HLD
Echo 12/05/24: [facility] study, EF 55 to 60%, calcified anatomically trileaflet but functionally bicuspid AV with moderate AAS peak/mean 56.7/33.3 mmHg and CHIDI 0.78 cm sq, mild MR
Echo 01/24/25: EF 40%, global hypokinesis with akinesis of the distal anterior wall, mild to moderate MR, severe aortic stenosis peak/mean 52/33 mmHg with CHIDI 0.7 cm sq
PLAN:
-Appreciate input from CT surgery team. Patient has completed pre-op testing and is awaiting a P2Y12 assay in AM in anticipation of SAVR on Thursday.
-Patent previously placed LAD stents by cath 01/23/25 and otherwise stable coronary anatomy despite Troponin up to 4646 at [facility] which is equivalent to about 46 using the Troponin assay. Symptoms on presentation and Troponin might have been due to
- is now severe on echo 01/24/25. EF is also newly reduced to 40% by echo 01/24/25.
-Patient is s/p LAD PCI 07/06/24 and has been taking aspirin and Plavix since then. Last dose of Plavix was 01/23/25 AM
-Outpatient dose of aspirin has been continued
-Outpatient dose of lisinopril 10 mg daily has been stopped due to hypotension and
-Patient is not chronically on BB and will not start due to hypotension
-Eventually start SGLT-2 once post-op and stable
-LDL 71 and outpatient dose of Crestor 40 mg daily has been continued
-LVEDP 25, no evidence of acute HF
HPI: 64 y/o white male, PMH sig for CAD, recent LAD PCI w/2 overlapping DONNELL (07/06/24), LBBB, moderate , taking DAPT w/asa, plavix.
Presented to [facility] ER after exertional chest pain on exercise bike. He felt like he was going to pass out, laid down on a bed and called 911. He was hypotensive and ashen. CXR was suspected to be pulmonary edema. HS troponin at 4646, CPK 4961, MB
600 and still trending. Echo this morning with mod-severe LVS dysfunction, EF 25-30%, anteroseptal HK, mod-sev (PG/MG 58.5/37.2, CHIDI 0.8cm2). This is worse than echo 1/13/25 where EF was 55-60%, no WMA and mod (PG/MG 56.7/33.3, CHIDI 0.78cm2).
He was started on heparin and transferred today for [facility].
Progress Note - Pipe Stem Sawyer
Subjective
Date of Service: January 25, 2025
He feels well, no chest pain
Objective
Labs:
01/24/25 05:35
01/24/25 05:35
Labs
Hgb 12.9 g/dL (13.0-18.0) L 01/24/25 05:35
Hct 37.1 % (39.0-52.0) L 01/24/25 05:35
Plt Count 158 10^3/uL (130-400) 01/24/25 05:35
PT 14.3 Sec (11.4-14.6) 01/24/25 05:35
INR 1.08 01/24/25 05:35
APTT 27.8 Sec (23.4-35.0) 01/24/25 05:35
Sodium 135 mmol/L (135-145) 01/24/25 05:35
Potassium 4.2 mmol/L (3.5-5.1) 01/24/25 05:35
BUN 11 mg/dl (9-20) 01/24/25 05:35
Creatinine 0.7 mg/dL (0.7-1.3) 01/24/25 05:35
Glucose 98 mg/dl (70-99) 01/24/25 05:35
Troponins
01/23/25 01/24/25
10:39 05:35
Troponin I 39.700 H* 32.300 H*
Vital Signs and I&O:
Vital Signs
Temp Pulse Resp BP Pulse Ox
98.6 F 76 18 111/67 98
01/25/25 07:09 01/25/25 00:15 01/25/25 07:09 01/24/25 22:32 01/25/25 07:09
Vital Signs
Temp Pulse Resp BP Pulse Ox
98.6 F 76 18 111/67 98
01/25/25 07:09 01/25/25 00:15 01/25/25 07:09 01/24/25 22:32 01/25/25 07:09
Intake & Output
01/23/25 01/24/25 01/25/25 01/26/25
06:59 06:59 06:59 06:59
Intake Total 240 / 240 480 / 480
Balance 240 / 240 480 / 480
Physical Exam
Physical Exam
GEN: AAOx3
HEENT: MMM
LUNGS: RA, no audible wheeze
CV: SR on tele.
ABD: ND
EXT: No edema B/L
NEURO: Gross non-focal
SKIN: No rash
[2025-01-25] MEDS: LOW STRENGTH ASPIRIN 81 MG PO (08:34)
[2025-01-25] MEDS: CRESTOR 40 MG PO (08:34)
--- NOTE | 2025-01-25 08:46 | W.PN.UPDATE ---
Update Note
Progress Note Update
Patient is tentatively on Thursdayjanuary [address] Foy. TEG/P2y12 will be assessed on . Last dose plavix was on 01/23/25. Consent to be obtained. STS risk below.
Procedure Type:�CABG + AVR
Perioperative Outcome Estimate %
Operative Mortality 2.19%
Morbidity & Mortality 11.7%
Stroke 1.46%
Renal Failure 1.63%
Reoperation 4.9%
Prolonged Ventilation 6.67%
Deep Sternal Wound Infection 0.107%
Long Hospital Stay (>14 days) 6.19%
Short Hospital Stay (<6 days)* 39.2%
Clinical Summary
Planned Surgery: CABG + AVR, Urgent, First cardiovascular surgery
Demographics: 64 year old, male, 86.4kg, 178cm, BMI: 27.3 kg/m�
Lab Values: Creatinine: 0.7 mg/dL, Hematocrit: 37.1%, WBC Count: 11 10�/�L, Platelet Count: 854981 cells/�L
Substance Abuse: Never smoker, Alcohol use: <=1 drink/week
Risk Factors / Comorbidities: Hypertension, Family Hx of CAD
Cardiac Status: Acute and chronic heart failure, Ejection Fraction = 40%
Coronary Artery Disease: 1 vessel diseased, Non-ST Elevation AK, AK: 1 to 7 Days
Valve Disease: Aortic Stenosis
--- NOTE | 2025-01-25 09:43 | PTCARENOTE ---
received patient this am, patient sitting eating breakfast, monitor shows NSR with BBBirdie, VSS. Dr. Foy and his team in seeing patient.
--- NOTE | 2025-01-25 10:44 | CM ---
Reviewed chart. Met with and Mrs. Tripp to review discharge plans. He is waiting to hear the final decision regarding heart surgery. Prior to admission he resides with his spouse in a two story home with two steps to enter. He has a full
flight of steps to get to bedroom/full bathroom. He has a powder room on the first floor. Prior to admission he was independent with ambulation and adls. He does not have any DME in the home. He has a prescription plan and uses [facility].
Medical work-up in progress. The discharge plan is to return home with spouse when medically stable.
[2025-01-25 10:51] VITALS: BMI 26.9
[2025-01-25 11:24] VITALS: BP 101/70
[2025-01-25 15:41] VITALS: BP 100/71
--- NOTE | 2025-01-25 21:05 | PTCARENOTE ---
Rec'd pt at change of shift. Pt AAO*3, VSS, and SR on TELE monitor. Pt denies any pain or discomfort. Pt aware of possible procedure and plan of care, verbalizing understanding. Pt with at bedside, call carballo in reach, and plan of care
ongoing. See flowchart and mar for full pt assessment and care.
[2025-01-25 22:03] VITALS: BP 102/78
[2025-01-25 22:07] VITALS: BP 102/78
--- NOTE | 2025-01-25 22:49 | PTCARENOTE ---
Receive pt from nightshift. pt AAOx4, NSR on monitor, VSS. heart sounds audible, radial and dp pulses palpable. lungs clear, 95% on RA. + BS x4 quadrants, abdomen soft non tender. pt voiding clear yellow urine. PIV maintained. call carballo within reach
[2025-01-26] VITALS (7 sets, daily range): BP systolic 100–119; BP diastolic 62–83
--- NOTE | 2025-01-26 03:42 | PTCARENOTE ---
Pt assessment unchanged. NSR on monitor. VSS. resting comfortably. Labs drawn and walked down to lab. call carballo within reach.
[2025-01-26 04:16] LABS: VerifyNow PRU 249 PRU (180-376)
--- NOTE | 2025-01-26 07:33 | W.PN.CARDCBS ---
Addendum entered and electronically signed by Radha Sepulveda DO 01/26/25 10:42:
I saw and examined the patient.
The Manager Infrastructure's note was reviewed and I agree with the note.
Comment: Patient was seen and examined sitting out of bed to chair. He is feeling well without chest pain/pressure, shortness of breath or dizziness. Seen by CT surgery with plans for CABG/AVR 01/27/[address] Foy
General: No acute distress, AAOX3
Neck: Negative JVD
Heart: Regular, Negative S3 positive S1/S2, 2/6 SID
Lungs: CTA b/l, negative wheezes/rales/rhonchi
Abd: Positive BS, NT/ND, neg rebound/rigidity/guarding
Ext: no edema. radial cath site intact +2 radial pulse
Neuro: nonfocal
Plan:
Admitted to [facility] with near syncope while riding his [employer] bike and hypotension 01/22/2025 found to have new reduction in LV systolic function now estimated 25-30% with bicuspid aortic valve and severe aortic stenosis with known
coronary artery disease/non-STEMI and history of carotid stenosis status post right carotid enterectomy in 2017.
-Cardiac catheterization January 23, 2025 found stable coronary anatomy with patent overlapping mid LAD stents and probable severe symptomatic aortic stenosis [mean aortic valve gradient 30 mmHg] now seen by CT surgery
-Repeat echocardiogram 01/24/2025 with LV ejection fraction estimated 40% with global hypokinesis and akinesis of the distal anterior wall with mild to moderate MR. Severe aortic stenosis with peak/mean gradients 52/33 mmHg with an aortic valve area
calculated 0.7 cm�.
-P2Y12 assay 249; last dose of Plavix was 01/23/2025
-Tentative plan for CABG/SAVR with left atrial appendage clip on 01/27/25
-Postop plan to resume aspirin/Plavix
-Patient appears euvolemic; will monitor volume status closely as an outpatient
-Will need repeat echocardiogram 3 months following surgery to reassess EF
-Following surgery will start initiation of goal-directed medical therapy
-LDL 71 and outpatient dose of Crestor 40 mg daily has been continued
Will follow with you
Original Note:
Today's Communication / Plan
-
Plan is for AVR in AM
Will follow post-op and add GDMT as ELE tolerates
Impression / Plan
-
PCP: Fani Mayen MD
CDY: Jimy Garza MD
Impression:
Admitted to [facility] with near syncope and hypotension 01/22/25
Transferred to for cardiac cath 01/23/25
Nonischemic myocardial injury Troponin elevation due to severe
peak Troponin at [facility] 4646
CAD s/p LAD PCI w/2 overlapping DONNELL at 07/06/24
patent by cardiac cath 01/23/25
LBBB
New nonischemic cardiomyopathy EF 25-30%
Trileaflet, but functionally bicuspid AV with moderate peak/mean 56.7/33.3 mmHg and CHIDI 0.78 cm sq by echo at [facility] 12/05/24
Carotid disease, s/p R CEA (2017), LICS 50-70%
HTN
HLD
Echo 12/05/24: [facility] study, EF 55 to 60%, calcified anatomically trileaflet but functionally bicuspid AV with moderate peak/mean 56.7/33.3 mmHg and CHIDI 0.78 cm sq, mild MR
Echo 01/24/25: EF 40%, global hypokinesis with akinesis of the distal anterior wall, mild to moderate MR, severe aortic stenosis peak/mean 52/33 mmHg with CHIDI 0.7 cm sq
PLAN:
-P2Y12 assay 249 and presumably he will proceed with SAVR on 01/27/25 for severe
-Last dose of Plavix was 01/23/25 AM. Patient is s/p LAD PCI 07/06/24 and has been taking aspirin and Plavix since then.
-Patent previously placed LAD stents by cath 01/23/25 and otherwise stable coronary anatomy despite Troponin up to 4646 at [facility] which is equivalent to about 46 using the Troponin assay. Symptoms on presentation and Troponin might have been due to
-EF newly reduced at 40%. No new CAD on cath.
-Outpatient dose of aspirin has been continued
-Outpatient dose of lisinopril 10 mg daily has been stopped due to hypotension and
-Patient is not chronically on BB and will not start due to hypotension. Will attempt to start BB prior to d/c if stable post-op.
-Eventually start SGLT-2 once post-op and stable
-LDL 71 and outpatient dose of Crestor 40 mg daily has been continued
-LVEDP 25, no evidence of acute HF
HPI: 64 y/o white male, PMH sig for CAD, recent LAD PCI w/2 overlapping DONNELL (07/06/24), LBBB, moderate , taking DAPT w/asa, plavix.
Presented to [facility] ER after exertional chest pain on exercise bike. He felt like he was going to pass out, laid down on a bed and called 911. He was hypotensive and ashen. CXR was suspected to be pulmonary edema. HS troponin at 4646, CPK 4961, MB
600 and still trending. Echo this morning with mod-severe LVS dysfunction, EF 25-30%, anteroseptal HK, mod-sev (PG/MG 58.5/37.2, CHIDI 0.8cm2). This is worse than echo 12/05/24 where EF was 55-60%, no WMA and mod (PG/MG 56.7/33.3, CHIDI 0.78cm2).
He was started on heparin and transferred today for [facility].
Progress Note - Clicker Operator
Subjective
Date of Service: January 26, 2025
He feels well, no chest pain
Objective
Labs:
01/24/25 05:35
01/24/25 05:35
Labs
Hgb 12.9 g/dL (13.0-18.0) L 01/24/25 05:35
Hct 37.1 % (39.0-52.0) L 01/24/25 05:35
Plt Count 158 10^3/uL (130-400) 01/24/25 05:35
PT 14.3 Sec (11.4-14.6) 01/24/25 05:35
INR 1.08 01/24/25 05:35
APTT 27.8 Sec (23.4-35.0) 01/24/25 05:35
Sodium 135 mmol/L (135-145) 01/24/25 05:35
Potassium 4.2 mmol/L (3.5-5.1) 01/24/25 05:35
BUN 11 mg/dl (9-20) 01/24/25 05:35
Creatinine 0.7 mg/dL (0.7-1.3) 01/24/25 05:35
Glucose 98 mg/dl (70-99) 01/24/25 05:35
Troponins
01/23/25 01/24/25
10:39 05:35
Troponin I 39.700 H* 32.300 H*
Vital Signs and I&O:
Vital Signs
Temp Pulse Resp BP Pulse Ox
98.7 F 80 20 119/62 98
01/26/25 07:09 01/26/25 07:15 01/26/25 07:09 01/26/25 07:09 01/26/25 07:09
Vital Signs
Temp Pulse Resp BP Pulse Ox
98.7 F 80 20 119/62 98
01/26/25 07:09 01/26/25 07:15 01/26/25 07:09 01/26/25 07:09 01/26/25 07:09
Intake & Output
01/24/25 01/25/25 01/26/25 01/27/25
06:59 06:59 06:59 06:59
Intake Total 240 / 240 480 / 480
Balance 240 / 240 480 / 480
Physical Exam
Physical Exam
GEN: AAOx3
HEENT: MMM
LUNGS: RA, no audible wheeze
CV: SR on tele.
ABD: ND
EXT: No edema B/L
NEURO: Gross non-focal
SKIN: No rash
[2025-01-26] MEDS: CRESTOR 40 MG PO (07:58)
[2025-01-26] MEDS: LOW STRENGTH ASPIRIN 81 MG PO (07:58)
--- NOTE | 2025-01-26 09:31 | PTCARENOTE ---
Pt is AOx3, no complaints of pain or discomfort. Independent OOB. VSS, SR on tele monitor. Pt will be NPO after midnight tonight for CVOR tomorrow. Call carballo within reach.
--- NOTE | 2025-01-26 12:07 | CM ---
Reviewed chart. Met with and Mrs. Tripp to review discharge plans. Prior to admission he resides with his spouse in a two story home with two steps to enter. He has a full flight of steps to get to bedroom/full bathroom. He has a powder
room on the first floor. Prior to admission he was independent with ambulation and adls. He does not have any DME in the home. He has a prescription plan and uses [facility]. Medical work-up in progress. The discharge plan is to return home
with his spouse and a home visit by the Transitional Care Nurse when medically stable.
We reviewed pre-op and post-op routines. We briefly reviewed the shower instructions. We reviewed restrictions including sternal precautions and driving restrictions. We also discussed a home visit by the Transitional Care Nurse. He is agreeable
to a home visit. The plan is for CABG on Saturday, January 27.
--- NOTE | 2025-01-26 21:15 | PTCARENOTE ---
Rec'd pt at change of shift. PT AAO*3, VSS, and SR on TELE monitor. Pt denies any pain or discomfort. Pt updated on open heart preparations and verbalizes understanding. Pt NPO after midnight for procedure. Pt resting with call carballo in reach.
Plan of care ongoing. See MAR and flowchart for full pt care and assessment.
--- NOTE | 2025-01-26 23:00 | PTCARENOTE ---
Pt showered with CHG soap, shaved, and bed linens changed. Pt updated on plan of care. Pt verbalizes understanding at this time. Plan of care ongoing. Pt resting with call carballo in reach. Plan of care ongoing.
[2025-01-27] VITALS (14 sets, daily range): BP systolic 81–112; BP diastolic 53–73; BMI 26.6
[2025-01-27] MEDS: BACTROBAN 2% OINTMENT 1 APPLIC NASAL ×2 (06:18→21:09)
[2025-01-27] MEDS: MAGNESIUM OXIDE 500 MG PO (06:20)
[2025-01-27] MEDS: LOPRESSOR 25 MG PO (06:20)
[2025-01-27] MEDS: PROTONIX 40 MG PO (06:20)
--- NOTE | 2025-01-27 10:33 | W.CVOR.SURPR ---
CVOR Surgeon Immed Pre Op
-
I have examined this patient prior to performance of the scheduled procedure.
The patient's condition is unchanged from the time of the dictated/written History and
Physical and the patient is able to undergo the scheduled procedure.
AVR (biological) + WILSON-LAD +/- Diag + CELINE clip
--- NOTE | 2025-01-27 10:34 | PTCARENOTE ---
Received patient this morning sitting oob on the couch with his waiting for surgery later today. Patient prepped by prior shift, including pre-op meds other than IV ancef- notified CT surgery CLINICAL RN. Patient offers no complaints, he and his
aware that he will be transferred to 2268 after surgery.
--- NOTE | 2025-01-27 10:39 | CM ---
Reviewed chart. Mr. Tripp is in the operating room today. Prior to admission he resides with is spouse in a two story home with two steps to enter. He has a full flight of steps to get to bedroom/full bathroom. He has a powder room on the first
floor. Prior to admission he was independent with ambulation and adls. He dies not have any DME in the home. He has a prescription plan and uses [facility]. His spouse will be home to assist in his care if needed. Medical work-up in progress.
The discharge plan is to return home with his spouse and a home visit by the Transitional Care Nurse when medically stable.
--- NOTE | 2025-01-27 11:02 | PTCARENOTE ---
Patient transferred to OR, [facility], belongings transferred to room 2263.
[2025-01-27] MEDS: CRESTOR PO (11:04)
[2025-01-27] MEDS: LOW STRENGTH ASPIRIN PO (11:05)
[2025-01-27 12:06] LABS: ACT+ - POC 90 Seconds (82-134)
[2025-01-27 12:15] LABS: B.E. - POC 0.1 mmol/L; Glucose - POC 113 mg/dl (70-99); HCO3 - POC 24 mmol/L (21-28); Hematocrit - POC 41 % PCV (42-52); Hemodilution- POC No; Ionized Calcium - POC 1.12 mmol/L (1.15-1.33); Lactate - POC 1.03 mmol/L (0.36-0.75); O2 Saturation %Calculated-POC 99.4 % (94-98); PCO2 - POC 35 mmHg (35-48); PO2 - POC 153 mmHg (83-108); Potassium - POC 4.1 mmol/L (3.5-5.1); Sodium - POC 140 mmol/L (136-145); Specimen Type - POC Arterial; pH - POC 7.44 (7.35-7.45)
[2025-01-27 13:13] LABS: ACT+ - POC 479 Seconds (82-134)
[2025-01-27 13:15] LABS: Urine Albumin 1+ (Neg - Trace); Urine Bilirubin Negative (Negative); Urine Character Clear (Clear); Urine Color Yellow; Urine Glucose Negative (Negative); Urine Ketone Negative (Negative); Urine Leukocyte Negative (Negative); Urine Nitrite Negative (Negative); Urine Occult Blood 1+ (Negative); Urine Specific Gravity 1.025 (<1.030); Urine Urobilinogen Negative (Neg - 1+)
[2025-01-27 13:28] LABS: Urine Bacteria Few (Negative); Urine Mucus Moderate; Urine Red Blood Cell 0-2 /HPF (0-2)
[2025-01-27 13:32] LABS: ACT+ - POC 473 Seconds (82-134)
[2025-01-27 13:59] LABS: B.E. - POC 3.2 mmol/L; Glucose - POC 124 mg/dl (70-99); HCO3 - POC 28 mmol/L (21-28); Hematocrit - POC 24 % PCV (42-52); Hemodilution- POC Yes; Ionized Calcium - POC 0.99 mmol/L (1.15-1.33); Lactate - POC 0.77 mmol/L (0.36-0.75); O2 Saturation %Calculated-POC 99.8 % (94-98); PCO2 - POC 39 mmHg (35-48); PO2 - POC 226 mmHg (83-108); Potassium - POC 5.1 mmol/L (3.5-5.1); Sodium - POC 138 mmol/L (136-145); Specimen Type - POC Arterial; pH - POC 7.45 (7.35-7.45)
[2025-01-27 14:13] LABS: ACT+ - POC 609 Seconds (82-134)
[2025-01-27 14:29] LABS: B.E. - POC 0.9 mmol/L; Glucose - POC 179 mg/dl (70-99); HCO3 - POC 26 mmol/L (21-28); Hematocrit - POC 32 % PCV (42-52); Hemodilution- POC Yes; Hemoglobin Calculated - POC 10.9; Ionized Calcium - POC 1.07 mmol/L (1.15-1.33); Lactate - POC 1.35 mmol/L (0.36-0.75); O2 Saturation %Calculated-POC 99.6 % (94-98); PCO2 - POC 43 mmHg (35-48); PO2 - POC 183 mmHg (83-108); Potassium - POC 5.2 mmol/L (3.5-5.1); Sodium - POC 138 mmol/L (136-145); Specimen Type - POC Arterial; pH - POC 7.39 (7.35-7.45)
[2025-01-27 14:46] LABS: ACT+ - POC 605 Seconds (82-134)
[2025-01-27 15:11] LABS: B.E. - POC 0.5 mmol/L; Glucose - POC 201 mg/dl (70-99); HCO3 - POC 27 mmol/L (21-28); Hematocrit - POC 37 % PCV (42-52); Hemodilution- POC Yes; Hemoglobin Calculated - POC 12.4; Ionized Calcium - POC 1.08 mmol/L (1.15-1.33); Lactate - POC 1.03 mmol/L (0.36-0.75); O2 Saturation %Calculated-POC 99.9 % (94-98); PCO2 - POC 47 mmHg (35-48); PO2 - POC 300 mmHg (83-108); Potassium - POC 5.3 mmol/L (3.5-5.1); Sodium - POC 137 mmol/L (136-145); Specimen Type - POC Arterial; pH - POC 7.36 (7.35-7.45)
[2025-01-27 15:21] LABS: B.E. - POC -0.3 mmol/L; Glucose - POC 133 mg/dl (70-99); HCO3 - POC 25 mmol/L (21-28); Hematocrit - POC 31 % PCV (42-52); Hemodilution- POC Yes; Hemoglobin Calculated - POC 10.4; Ionized Calcium - POC 1.26 mmol/L (1.15-1.33); Lactate - POC 1.85 mmol/L (0.36-0.75); O2 Saturation %Calculated-POC 98.5 % (94-98); PCO2 - POC 44 mmHg (35-48); PO2 - POC 120 mmHg (83-108); Potassium - POC 3.7 mmol/L (3.5-5.1); Sodium - POC 141 mmol/L (136-145); Specimen Type - POC Arterial; pH - POC 7.37 (7.35-7.45)
[2025-01-27 15:22] LABS: ACT+ - POC 120 Seconds (82-134)
[2025-01-27] MEDS: TYLENOL PO ×2 (15:45→22:55)
[2025-01-27] MEDS: NEURONTIN PO (15:45)
[2025-01-27] MEDS: PACERONE PO (15:45)
--- NOTE | 2025-01-27 16:04 | W.PN.CT.SURG ---
CT Surgery Operative Note
-
CARDIAC SURGERY OPERATIVE REPORT
Preoperative Diagnosis: Aortic valve stenosis with acute coronary syndrome
Postoperative Diagnosis: Same
Procedure(s) Performed:
1. Standard sternotomy with aortic and right atrial cannulation
2. Internal mammary artery harvesting, left
3. Coronary artery bypass grafting x 2 (In situ WILSON to high diagonal sequential to LAD)
4. Surgical aortic valve replacement [25 mm bioprosthesis]
5. Left atrial appendage exclusion [35 mm clip]
6. Placement of temporary atrial and ventricular pacing wires
7. Trans-esophageal echocardiography
Date of Surgery: 01/27/25
Comorbidities:
1. Severe aortic valve stenosis [bicuspid morphology, type II]
2. Single-vessel coronary artery disease previous PCI
3. Hypertension
4. Hyperlipidemia
5. Bilateral carotid stenosis status post right carotid endarterectomy
6. Acute systolic and diastolic heart failure with a EF of 25 to 30%
Attending Surgeon: Pedro Foy MD, MS
Assistants: Nora Baldwin PA-C (present and necessary to photographer assistant, endoscopic vein harvest, retraction, suction, exposure, suture management, and wound closure under my direction)
Anesthesiology: Genaro Rhodes MD and Gin Schaffer CRNA
Scrub and Circulating RNs: Jessica Murrieta RN, Mac Weathers RN
Head Wrestling Coach: Quique Feliciano CCP
Anesthesia: GETA
EBL: per perfusion records
Products: 1 plt
CPB Time: 105 minutes
Aortic Cross Clamp Time: 92 minutes
Indication(s) for Procedures: This is a 64-year-old male with multiple comorbidities including a previous PCI to the LAD in June 2024. 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 Given his presentation with reduced left ventricular ejection fraction and elevated troponin, we felt it was prudent for him to proceed to surgical aortic valve replacement and revascularization.
Aortic Valve Description: Heavily calcified aortic valve with fusion of the right and left coronary cusp, left and right coronary ostia the normal anatomic positions. Heavy calcium of the noncoronary cusp infiltrating into the annulus.
Conduit(s) Quality:
WILSON -excellent/skeletonized
Target(s) Quality:
Dx -excellent, very large target covering lateral territory
LAD -good/significant plaque distal to the stent
Findings: LVEF on intraoperative JOVANA was 40% and 40% post procedure. There was some mild anterior apical akinesis on preoperative JOVANA and a significantly elevated pulmonary pressures to the 60s. Following surgery his EF did initially improved to
approximately 60% and later settled to 45%. The regional wall motion abnormality did appear to improve. There was bruising around the high diagonal territory that was concerning for an DC. I ultimately decided to vascularize both his high
diagonal and distal LAD past the stent. His left atrial appendage was verified to be free of any thrombus or debris preoperatively and found to be totally occlusive postoperatively with 35mm clip. There was a small residual stump. His aortic
valve was heavily calcified with fusion of the left and right coronary cusp. There was calcium infiltration down towards the noncoronary cusp at the annulus. His aortic valve was replaced using a total of 16 nonpledgeted 2 Ethibond sutures placed
from LV OT through annulus through sewing cuff of the valve and parachuted into place securing it with core knots. Both the left and right coronary ostia were verified to be free of any obstruction post valve implant. There was no prosthetic PVL
or AI. Mean gradient across the prosthesis was 10 mmHg initially while he was hyperdynamic coming off pump. The WILSON was harvested in a skeletonized fashion. There were no new regional wall motion abnormalities. Flow probe assessment yielded a mean
flow of approximately 40 to 50 cc a minute.
Specimen(s): Aortic valve leaflets.
Prosthesis:
1. 25 mm Higgins Inspiris Resilia aortic valve, serial number: [id number]
2. 35 mm clip, serial #[id number].
Description of Procedure: The patient was taken to the operating room. Their identity and procedure to be performed were verified and they were positioned supine on the operating table. Induction via general anesthesia with endotracheal intubation
was performed and central venous access and arterial monitoring were inserted. A preoperative transesophageal echocardiogram was performed. The patient was then prepped and draped from chin to feet in a sterile fashion. A preoperative time-out was
performed with all members of the team present. A midline chest incision was performed along with median sternotomy. I gave an initial 5,000 units of IV heparin. A RulTract sternal retractor was positioned to exposure the left internal mammary bed.
The mammary was harvested in a skeletonized fashion and found to have good flow. A medium clip was applied to the distal end of the mammary after dividing it. It was wrapped in a papaverine soaked RayTec and replaced back into the left hemithorax.
The RulTract was exchanged for a median sternal retractor. The innominate vein was isolated. Full heparinization was given (a total of 50,000 units). I created a pericardial well. The aortic cannulation site was chosen where it was soft, pliable,
and free of calcium. Cannulation was performed with an arterial cannula in the ascending aorta and a triple-stage venous cannula through the right atrial appendage. The arterial cannula line had an appropriate bounce and correlating pressures with
test dosing. Next, a root vent/antegrade cannula was inserted into the ascending aorta. The ACT was confirmed to be over 400 and retrograde autologous priming was performed before commencing cardiopulmonary bypass. The pulmonary artery was
away from the aorta to facilitate a clamp site. The aortic cross-clamp was placed after decreasing the flow on the bypass and mean arterial pressure. A total of 1.2L initial dose of antegrade Del-Nido cardioplegia solution was given and planned for
re-dosing every 75 minutes as necessary. There was rapid electro-mechanical arrest of the heart at 500 cc of cardioplegia. The left ventricle was observed for distention on echocardiogram and manual palpation. Cold slush was placed into a sponge and
topically on the RV while we systemically cooled to 34 degrees centigrade.
A suitable site on the high diagonal was chosen. We dissected and prepared the distal target in a similar fashion. An [id number] anastomosis was created with a 8-0 prolene from the under belly of the WILSON to the target, this was secured with a
micro corknot. Appropriate hemostasis and flow were confirmed. A suitable target on the mid/distal left anterior descending was identified past the stent. We dissected and prepared the distal target in a similar fashion. The distal end of the
mammary was prepped and beveled to size. We verified orientation and length of the FERNANDEZ and found brisk flow. An end-to-side anastomosis was created with a 7-0 prolene. We temporarily released the bulldog clamp on the mammary to inspect flow.
Perfusion to the LAD territory was visualized and hemostasis was confirmed. The bull clamp was replaced on the mammary.
Carbon dioxide was used to flood the field. I turned my attention to the aortic valve and manually identified the location of the right coronary take off. An aortotomy was made approximately 1.5cm above the sinotubular junction. The location of both
left and right coronary vessels were visualized in the root. The aortic valve was inspected and found to be heavily calcified. The leaflets were excised and sent for pathological assessment. The annulus was debrided of any calcium. The root and left
ventricular outflow tract were thoroughly irrigated to remove any debris. A total of 16, nonpledgeted 2-0 ethibond annular sutures were placed [id number] circumferentially. These were brought through the sewing cuff of the prosthetic valve which
as then parachuted into place. The left and right coronary ostia were visualized and were unobstructed by the valve. A Cor-Knot device was used to secure the annular sutures. The valve was inspected and was well seated. The aortotomy was
approximated with 4-0 prolene in two layers. We started to re-warm to 36.5 degrees centigrade. The bulldog clamp was removed from the mammary and temproary bipolar ventricular pacing wires were placed on the base of the right ventricle along with
temp atrial wires at the SVC/RA junction. The patient was placed in a Trendelenburg position and flows on bypass were lowered. The aortic cross clamp was removed and flows were slowly brought back up. The aortotomy appeared hemostatic. He went into
v. fib likely from air entrainment, and I cardioverted him with 50J with good effect. All bypass grafts were inspected and were free from kinking or twisting. De-airing maneuvers were performed. Transesophageal echocardiography revealed no
paravalvular leak and appropriate prosthetic function. Once de-airing was satisfactory, the left ventricular and root vents were removed. After verifying acceptable parameters, we initiated weaning from cardiopulmonary bypass. Once we were off
cardiopulmonary bypass, the venous cannulas was clamped and removed. A test dose of protamine was administered and the patient was monitored for any adverse reaction before resuming protamine. Once half of the protamine dose was delivered, pump
suckers were turned off and the systolic blood pressure was lowered for aortic decannulation. The aortic cannula was removed and pursestrings were tied down. All cannulation sites were oversewn with a 4-0 prolene. The aortic line, proximal, and
distal coronary anastomoses were hemostatic. The mammary bed was inspected and hemostasis was confirmed. Once the mediastinum was hemostatic, a 19Fr Dion drain was placed in the left pleural cavity and two 24Fr Dion drains were placed within the
pericardium. The sternum was approximated with 4#7 single and 3 #8 double stainless steel wires. Fascia was approximated with #1 vicryl suture. The subcutaneous, dermis and epidermis were closed in layers in a running fashion. The skin wound was
cleansed and dressed.
All instrument, sponge, and needle counts were confirmed to be correct x 2 at the end of the operation. The patient was transferred to the cardiac intensive care unit in critical but stable condition.
I, Dr. Pedro Foy, was present, scrubbed for, and performed all critical elements of this procedure.
Pedro Foy MD, MS
Cardiothoracic Surgeon
[facility]
This operative dictation was created using the [employer] dictation system. Please excuse any grammatical, typographical, or 'sound alike' errors
--- NOTE | 2025-01-27 16:06 | W.PN.CARDCBS ---
Addendum entered and electronically signed by Jasiel Mckinney MD 01/27/25 18:51:
Patient still intubated, on Precedex, pressors have been discontinued
Currently appears comfortable, sedated, lungs are clear incisions intact, regular rate and rhythm no rub, no edema
Postop EKG: Left bundle branch block which is chronic
Blood gas pending, BUN/creatinine 14 and 0.7 at 4:30 PM hemoglobin 9
Findings, impression, assessments, recommendations as per below
Impression:
Doing well postop day 0 Status post 25 mm bioprosthetic AVR/CABG x 2 with sequential WILSON to LAD and diagonal 01/27/[address] efforts of CT surgery
We will continue to follow
Original Note:
Today's Communication / Plan
-
Wean sedation as tolerated with anticipation of extubation this evening
Wean Levophed as hemodynamics allow
Monitor hemoglobin, electrolytes
Usual postop care
Monitor on telemetry
Impression / Plan
-
PCP: Fani Mayen MD
CDY: Jimy Garza MD
Impression:
Admitted to [facility] with near syncope and hypotension 01/22/25
Transferred to for cardiac cath 01/23/25
Nonischemic myocardial injury with troponin elevation due to severe , peak Troponin at [facility] 4646 (equivalent to 46 on assay)
Severe progressive symptomatic aortic stenosis
Status post 25 mm bioprosthetic AVR 01/27/2025
CAD
Status post CABG x 2 with sequential WILSON to LAD and diagonal 01/27/2025
s/p LAD PCI w/2 overlapping DONNELL at 07/06/24
Status post left atrial appendage clip 35 mm 01/27/2025
LBBB
New nonischemic cardiomyopathy EF 25-30%
Trileaflet, but functionally bicuspid AV with moderate peak/mean 56.7/33.3 mmHg and CHIDI 0.78 cm sq by echo at [facility] 12/05/24
Carotid disease, s/p R CEA (2017), LICS 50-70%
HTN
HLD
Echo 12/05/24: GVH study, EF 55 to 60%, calcified anatomically trileaflet but functionally bicuspid AV with moderate peak/mean 56.7/33.3 mmHg and CHIDI 0.78 cm sq, mild MR
Echo 01/24/25: EF 40%, global hypokinesis with akinesis of the distal anterior wall, mild to moderate MR, severe aortic stenosis peak/mean 52/33 mmHg with CHIDI 0.7 cm sq
Cardiac catheterization 01/23/2025: LM: Normal. LAD: Patent overlapping Ziggy DONNELL mid LAD, diagonal with 60% mid stenosis. Left circumflex: Patent. RCA: Proximal 40% stenosis, 40% distal stenosis. PDA proximal 40% stenosis LV% with
anterolateral and apical hypokinesis. -LVEDP 25, no evidence of acute HF
Intra/postop JOVANA 01/27/2025: EF 40% with mildly reduced LV function. Status post 25 mm bioprosthetic AVR well-seated with no perivalvular leak, mean gradient 10
PLAN:
-Presented 01/22/2025 with near syncope, hypotension after riding [employer] bike
-Found to have progressive aortic stenosis with newly reduced ejection fraction, nonischemic cardiomyopathy with EF 40% on echo at [place] confirmed by left ventriculogram during cath but as low as 30 to 35% on echo at [facility]
-Known coronary disease s/p LAD PCI 07/06/24 maintained on dual antiplatelet therapy, statin and SHELBIE inhibitor on admission. Stable coronary anatomy on cath 01/23/2025 despite having abnormal troponin equivalent to 46 on troponin assay. Possibly
due to progressive aortic stenosis
-Status post 25 mm bioprosthetic AVR, CABG x 2 with sequential WILSON to LAD and diagonal and left atrial appendage clip 35 mm 01/27/2025
-Patient seen and examined immediately postop. Remains intubated and sedated.
-Postop JOVANA with well-seated 25 mm bioprosthetic AVR with mean gradient 10 mmHg
-Currently on Levophed at 4 mcg/min, insulin at 1.3 units/hr and Precedex
-Post op EKG sinus rhythm with stable left bundle branch block, known preop. Continue to monitor
-Patient did receive 1 unit of platelets IntraOp. Second unit ordered
-Postop hemoglobin 9.9
-Chest x-ray pending
-Continue to monitor and trend hemoglobin, renal function and electrolytes postoperatively
-Eventual attempt at GDMT with low-dose beta-samara, SHELBIE/ARB/ARNI, Aldactone and SGLT2 as renal function and blood pressure allow and postop course
-LDL 71 and outpatient dose of Crestor 40 mg daily has been continued
HPI: 64 y/o white male, PMH sig for CAD, recent LAD PCI w/2 overlapping DONNELL (07/06/24), LBBB, moderate , taking DAPT w/asa, plavix.
Presented to [facility] ER after exertional chest pain on exercise bike. He felt like he was going to pass out, laid down on a bed and called 911. He was hypotensive and ashen. CXR was suspected to be pulmonary edema. HS troponin at 4646, CPK 4961, MB
600 and still trending. Echo this morning with mod-severe LVS dysfunction, EF 25-30%, anteroseptal HK, mod-sev (PG/MG 58.5/37.2, CHIDI 0.8cm2). This is worse than echo 12/05/24 where EF was 55-60%, no WMA and mod (PG/MG 56.7/33.3, CHIDI 0.78cm2).
He was started on heparin and transferred today for [facility].
Progress Note - Student Outreach Coordinator
Subjective
Date of Service: January 27, 2025
Patient seen immediately postoperatively. Remains intubated and sedated on Levophed for mcg/min, insulin and Precedex drip
Objective
Labs:
Labs
Hgb 12.9 g/dL (13.0-18.0) L 01/24/25 05:35
Hct 37.1 % (39.0-52.0) L 01/24/25 05:35
Plt Count 158 10^3/uL (130-400) 01/24/25 05:35
PT 14.3 Sec (11.4-14.6) 01/24/25 05:35
INR 1.08 01/24/25 05:35
APTT 27.8 Sec (23.4-35.0) 01/24/25 05:35
Sodium 135 mmol/L (135-145) 01/24/25 05:35
Potassium 4.2 mmol/L (3.5-5.1) 01/24/25 05:35
BUN 11 mg/dl (9-20) 01/24/25 05:35
Creatinine 0.7 mg/dL (0.7-1.3) 01/24/25 05:35
Glucose 98 mg/dl (70-99) 01/24/25 05:35
Vital Signs and I&O:
Vital Signs
Temp Pulse Resp BP Pulse Ox
97.7 F 73 18 99/64 96
01/27/25 08:19 01/27/25 11:00 01/27/25 08:19 01/27/25 08:18 01/27/25 08:19
Vital Signs
Temp Pulse Resp BP Pulse Ox
97.7 F 73 18 99/64 96
01/27/25 08:19 01/27/25 11:00 01/27/25 08:19 01/27/25 08:18 01/27/25 08:19
Intake & Output
01/25/25 01/26/25 01/27/25 01/28/25
06:59 06:59 06:59 06:59
Intake Total 480 / 480 480 / 480 0 / 0
Output Total 0 / 0
Balance 480 / 480 480 / 480 0 / 0
Physical Exam
Physical Exam
GEN: Intubated and sedated
HEENT: supple, anicteric, mmm
LUNGS: CTA, no wheezes/rales
CV: Reg, S1/S2, no murmur rub or gallop
ABD: soft, BS+, NT/ND
EXT: No edema, clubbing and cyanosis
NEURO: Intubated and sedated
SKIN: No rash, warm, dry, pink
[2025-01-27 16:25] LABS: Glucose - Point of Care 101 mg/dl (70-99)
[2025-01-27 16:36] LABS: B.E. -0.8 mmol/L; HCO3 24.3 mmol/L (21-28); Hemoglobin 9.9 g/dL (13.0-18.0); Ionized Calcium 1.14 mMOL/L (1.15-1.33); O2 Saturation % 94.4 % (94-98); PCO2 41 mmHg (35-48); PO2 73 mmHg (83-108); Platelet Count 139 10^3/uL (130-400); Potassium 3.4 mMOL/L (3.5-5.1); Sodium 138 mMOL/L (136-145); pH 7.38 (7.35-7.45)
[2025-01-27] MEDS: VENTOLIN NEBULES 2.5 MG INH (16:39)
[2025-01-27 16:48] LABS: INR 1.43; PT 17.7 Sec (11.4-14.6)
[2025-01-27 16:49] LABS: APTT 31.8 Sec (23.4-35.0)
[2025-01-27 16:52] LABS: Blood Urea Nitrogen 14 mg/dl (9-20); Estimated Creatinine Clearance 110 ml/min; Glucose 104 mg/dl (70-99); Magnesium 2.8 mg/dl (1.6-2.3)
[2025-01-27] MEDS: KCL 50 IV ×2 (16:59→18:10)
[2025-01-27] MEDS: CALCIUM GLUCONATE 100 IV (17:00)
[2025-01-27 17:05] LABS: Glucose - Point of Care 108 mg/dl (70-99)
--- NOTE | 2025-01-27 17:20 | PTCARENOTE ---
Pt received from [facility] at 1610; Sedated and intubated; SR with LBBB and prolonged QT rhythm on monitor; VSS; Epicardial AV wires present with temporary pacemaker settings DDD 40/10/0.5 40/10/2.0; +1 DP and +2 radial pulses present; Lung sounds
diminished at left base; ETT size 8 positioned and secured at 22 cm right lip; Ventilator settings SIMV 14/500/5/5 FiO2 40%; CTx3 to -20 cm wall suction draining bloody drainage - no air leak, tidaling, or crepitus noted; Hypoactive BS; Wang
catheter in place draining clear, yellow urine; Sternal incision glued, approximated, and PHYS THER; Left radial A-line in place, [place]-mary floated in [facility] Cordis at 46 cm - all lines zeroed and leveled; PIV x2 present - #20 LAC and #18 RAC; Levo,
precedex, and insulin infusing - see nursing flowsheets for further details; K repleted x2; iCal repleted x1; MD Foy notified and aware regarding CI <2; See nursing documentation for further details.
CO: 3.53
CI: 1.75
SVR: 1,133
[2025-01-27] MEDS: NSS 500 IV (17:37)
[2025-01-27] MEDS: ANCEF 10 IV ×2 (17:37)
[2025-01-27 18:02] LABS: Glucose - Point of Care 98 mg/dl (70-99)
--- NOTE | 2025-01-27 18:14 | CON.INTV ---
Consultation
Consultation Request
Date/Time Consultation Requested: 01/27/2025
Date/Time Consultation Performed: 01/27/2025
Requesting Provider: Pedro Foy
Performing Provider: Josse Monroy
Reason for Consultation: Post-op evaluation
Medical History
-
Chief Complaint: Near syncope
History of Present Illness:
Patient is a 64 gentleman who is currently intubated and sedated, history is mostly obtained from family at bedside and review of records. Reportedly patient has known history of hypertension, hyperlipidemia as well as carotid artery stenosis with
a history of PCI in 2023 for coronary artery disease. He was also known to have moderate aortic stenosis. He recently had a near syncopal event and presented at [facility]. Echo was suggestive of reduced ejection fraction with moderate to
severe aortic stenosis and patient was transferred to [place] for further workup. Subsequently patient had left heart catheterization which showed a patent stent without any significant change in coronary artery disease. Subsequently
cardiothoracic surgery was consulted and patient was taken to the OR for coronary artery bypass graft as well as aortic valve replacement today.
Past medical history. Hypertension, hyperlipidemia, carotid artery stenosis, bicuspid aortic valve. Also history of carotid endarterectomy in the past.
Social History
Tobacco: Non-smoker
Family History
Family History: Reviewed & Not Pertinent
Allergies / Home Medications
Allergies
Allergy/AdvReac Type Severity Reaction Status Date / Time
No Known Allergies Allergy Verified 01/23/25 10:54
Home Medications
�Medication �Instructions �Recorded �Confirmed �Last Taken �Type
aspirin 81 mg capsule 81 mg PO DAILY 06/22/24 01/23/25 01/23/25 05:30 History
lisinopril 10 mg tablet 10 mg PO DAILY 06/22/24 01/23/25 01/22/25 07:30 History
magnesium 250 mg tablet 250 mg PO DAILY 06/22/24 01/23/25 01/21/25 22:00 History
melatonin 10 mg tablet 10 mg PO HS PRN sleep 06/22/24 01/23/25 01/21/25 22:00 History
rosuvastatin 40 mg tablet 40 mg PO DAILY 06/22/24 01/23/25 01/22/25 07:30 History
vit [id number] D3-calc cit-Zn 1,000 mg PO DAILY 06/22/24 01/23/25 01/22/25 22:00 History
clopidogrel 75 mg tablet (Plavix) 75 mg PO DAILY 07/06/24 01/23/25 01/23/25 05:30 History
Review of Systems
-
Hematologic/Lymphatic: Other (All 14 systems reviewed and negative except as stated above in the history of present illness.)
Vitals / Labs / Diagnostic Testing
Vital Signs
Temp Pulse Resp BP Pulse Ox
97.2 F 73 14 82/53 95
01/27/25 17:00 01/27/25 17:05 01/27/25 17:05 01/27/25 17:00 01/27/25 17:05
Lab Data
01/27/25 16:26
Laboratory Results
01/27/25
16:26
PT 17.7 H
INR 1.43
APTT 31.8
pH 7.38
pCO2 41
pO2 73 L
HCO3 24.3
O2 Delivery Level
Microbiology
01/23/25 12:49 Nose MRSA Screen - Final
No Methicillin Resistant Staphylococcus aureus isolated.
Diagnostic Testing:
Physical Exam
-
HEENT: Normocephalic
Cardiovascular: Regular Rhythm
Respiratory: Clear
GI: Soft
Neurology: Awake
Skin: Warm
Assessment
-
64-year-old gentleman recently diagnosed with coronary artery disease and aortic stenosis. He was taken to the OR today
S/p coronary artery bypass graft x 2, aortic valve replacement with bioprosthetic valve, left atrial appendage exclusion, POD #0
Titrate off pressors per protocol
ECHO reviewed with low/normal function
PA catheter readings reviewed
Management of chest tubes per primary service
Intubated/sedated, starting to wake up, currently on SIMV, transitioned to PSV 5/5. Anticipate extubation later today.
Pain control
ABG(s) reviewed, 7.38, 41, 73.
CXR reviewed, chest tubes in place, tiny left apical pneumothorax noted. Does not appear to be dynamically significant
Extubate per protocol
Maintain supplement oxygen as needed
No prior history of pulmonary disease, never smoked.
Can add nebulizers if needed
Aspiration precautions
Encouraged incentive spirometry, OOB/ambulation/early mobility
Advance diet as tolerated following extubation
GI prophylaxis if indicated for mechanical ventilation >48 hours
Monitor critical I/O's
Wang/chest tube output
Trend CBC for now
Can transfuse if indicated for Hb <7, plt <50 in surgical patients
DVT prophylaxis including SCDs
Insulin protocol initiated and ongoing
Transition to SQ/off as indicated per team
We will follow
Critical Care time [35] mins -- The patient is admitted for acute critical illness for the treatment of vital organ failure and/or prevention of further life-threatening conditions. Total care includes time spent in review of history, physical exam,
medications, hemodynamic/ventilator parameters, laboratory data, imaging and discussion with house staff, pharmacy, respiratory therapy, brand inspector, and nursing.
--- NOTE | 2025-01-27 18:27 | PTCARENOTE ---
CPAP trial started at bedside by RT at 1819; ABG due at 1849
[2025-01-27 18:52] LABS: Glucose - Point of Care 118 mg/dl (70-99)
[2025-01-27 18:55] LABS: B.E. 1.2 mmol/L; Ionized Calcium 1.37 mMOL/L (1.15-1.33); O2 Saturation % 98.6 % (94-98); PCO2 41 mmHg (35-48); PO2 88 mmHg (83-108); Sodium 136 mMOL/L (136-145); pH 7.41 (7.35-7.45)
[2025-01-27 18:56] LABS: B.E. - POC 0.6 mmol/L; Glucose - POC 119 mg/dl (70-99); HCO3 - POC 25 mmol/L (21-28); Hematocrit - POC 32 % PCV (42-52); Hemodilution- POC Yes; Hemoglobin Calculated - POC 10.8; Ionized Calcium - POC 1.34 mmol/L (1.15-1.33); Lactate - POC 1.37 mmol/L (0.36-0.75); O2 Saturation %Calculated-POC 95.6 % (94-98); PCO2 - POC 39 mmHg (35-48); PO2 - POC 77 mmHg (83-108); Potassium - POC 4.7 mmol/L (3.5-5.1); Sodium - POC 142 mmol/L (136-145); Specimen Type - POC Arterial; pH - POC 7.42 (7.35-7.45)
--- NOTE | 2025-01-27 19:15 | PTCARENOTE ---
Patient extubated at 1915 by RT at bedside; ABG's reviewed with CVNP Ofelia; Patient placed on 6L NC
[2025-01-27 19:48] LABS: Hematocrit 29.7 % (39.0-52.0); Hemoglobin 10.3 g/dL (13.0-18.0); Platelet Count 163 10^3/uL (130-400)
[2025-01-27] MEDS: OFIRMEV 100 IV (19:49)
[2025-01-27 19:52] LABS: Mixed Venous O2 Saturation 57.3 %
[2025-01-27] MEDS: LR 250 ML IV (19:56)
[2025-01-27 20:07] LABS: Glucose - Point of Care 105 mg/dl (70-99)
--- NOTE | 2025-01-27 20:15 | PTCARENOTE ---
received pt form previous rn. Pt at bedside during time of assessment. pt AAOx4, VSS, NSR w/ LBBB and prolonged QT per tele monitor HR 70s, +pulses, A/V wires set to DDD 40/10/0.5 40/10/2.0. lung sounds diminished, pox 100% 6L NC, Tx3 to -20
cm wall suction draining bloody drainage - no air leak, tidaling, or crepitus noted. hypoactive bs, Wang catheter in place draining clear, yellow urine. sternal incision intact. Left radial A-line in place, [place]-mary floated in [facility] Cordis at 46 cm
- all lines zeroed and leveled; PIV x2 present - #20 LAC and #18 RAC. plan of care discussed questions encouraged.
gtts
Levo
Insulin
[2025-01-27 20:54] LABS: Glucose - Point of Care 105 mg/dl (70-99)
[2025-01-27] MEDS: LOW STRENGTH ASPIRIN 81 MG PO (21:10)
[2025-01-27] MEDS: ROXICODONE 2.5 MG PO (22:19)
[2025-01-27] MEDS: PACERONE 200 MG PO (22:22)
[2025-01-27] MEDS: NEURONTIN 100 MG PO (22:22)
[2025-01-27] MEDS: ANCEF 5 IV (22:22)
[2025-01-27] MEDS: SENOKOT-S PO (22:54)
[2025-01-27 23:00] LABS: Glucose - Point of Care 100 mg/dl (70-99)
[2025-01-28] VITALS (28 sets, daily range): BP systolic 82–121; BP diastolic 56–81; BMI 26.5
--- NOTE | 2025-01-28 00:02 | PTCARENOTE ---
Pt resting comfortably in bed. VSS, NSR w/ LBBB and prolonged QT per tele monitor. assessment remains unchanged
[2025-01-28 01:04] LABS: Glucose - Point of Care 93 mg/dl (70-99)
[2025-01-28] MEDS: ROXICODONE 2.5 MG PO ×4 (02:21→14:59)
[2025-01-28 03:08] LABS: Glucose - Point of Care 110 mg/dl (70-99)
[2025-01-28 03:29] LABS: Hematocrit 28.5 % (39.0-52.0); Hemoglobin 9.7 g/dL (13.0-18.0); Mean Corpuscular Hgb 31.1 pg (27.0-31.0); Mean Corpuscular Volume 91.3 fL (80.0-94.0); Mean Platelet Volume 9.7 fL (7.4-10.4); Platelet Count 163 10^3/uL (130-400); Red Blood Cell Count 3.12 10^6/uL (4.70-6.10); Red Cell Dist. Width 12.6 % (11.5-14.5); White Blood Cell Count 11.3 10^3/uL (4.8-10.8)
--- NOTE | 2025-01-28 03:41 | PTCARENOTE ---
pt is NSR per tele monitor, HR 80s-90s, VSS,
gtts
Cardene ( see MAR)
Insulin
[2025-01-28 04:11] LABS: Blood Urea Nitrogen 18 mg/dl (9-20); Calcium 8.8 mg/dl (8.4-10.2); Carbon Dioxide 22 mmol/L (22-30); Chloride 104 mmol/L (98-107); Estimated Creatinine Clearance 96 ml/min; Glucose 104 mg/dl (70-99); Magnesium 2.2 mg/dl (1.6-2.3); Potassium 4.6 mmol/L (3.5-5.1); Sodium 136 mmol/L (135-145); eGFR > 60.00
[2025-01-28] MEDS: NITROGLYCERIN PREMIX 250 IV (04:47)
--- NOTE | 2025-01-28 04:59 | W.PN.CT ---
Addendum entered and electronically signed by Malcom Vences MD 01/28/25 08:52:
I saw and examined the patient.
The PA's note was reviewed and I agree with the note.
Comment:
Postop day #1 status post bioprosthetic AVR, CABG x 2, and exclusion of left atrial appendage
Wean nitroglycerin to off, institute beta-samara therapy
De-line
Out of bed, I-S, ambulate
Maintain chest tubes
Original Note:
Today's Communication / Plan
-
-pod #1
-no issues overnight
-per AT, sbp goal was 90-110 overnight
-CI 2.61, CO 5.27. Drips: insulin, Nitro 5
-CT output: 2 meds 170/305, L pleur 75/215 in 12/24 hrs
-deline
-d/c insulin
-d/c Wang
-current meds (ASA, Plavix, Crestor, Lopressor, Amio, Protonix)
-Tm 100.2- encourage IS, OOB
Assessment / Plan
-
- Aortic valve stenosis with acute coronary syndrome- s/p Surgical aortic valve replacement [25 mm Higgins Inspiris Resilia bioprosthesis]; CABG x 2 (In situ WILSON to high diagonal sequential to LAD); Left atrial appendage exclusion [35 mm clip] by
Dr. Foy on 01/27/25, pod #1
- Intraop JOVANA: LVEF on intraoperative JOVANA was 40% and 40% post procedure. There was some mild anterior apical akinesis on preoperative JOVANA and a significantly elevated pulmonary pressures to the 60s. Following surgery his EF did initially improved
to approximately 60% and later settled to 45%. The regional wall motion abnormality did appear to improve. There was bruising around the high diagonal territory that was concerning for an OK. His left atrial appendage was verified to be free of
any thrombus or debris preoperatively and found to be totally occlusive postoperatively with 35mm clip. There was a small residual stump. There was no prosthetic PVL or AI. Mean gradient across the prosthesis was 10 mmHg initially while he was
hyperdynamic coming off pump.
- Severe aortic valve stenosis [bicuspid morphology, type II]
- Single-vessel coronary artery disease, s/p LAD DONNELL x2 07/06/24, on DAPT
- Pre-existing LBBB
- Hypertension
- Hyperlipidemia
- Bilateral carotid stenosis, status post right carotid endarterectomy (LICA 50-69%)
- Acute systolic and diastolic heart failure with a EF of 25 to 30%
- Acute postop blood loss anemia- stable, no transfusion
- Acute postop atelectasis
- Acute postop hypovolemia with subsequent hypervolemia
Discussed patient care with: Nursing and Care Team
Subjective
-
Date of Service: January 27, 2025
Objective Data
-
Lab Results
01/27/25 19:41
01/27/25 16:26
PT 17.7 Sec (11.4-14.6) H 01/27/25 16:26
INR 1.43 01/27/25 16:26
APTT 31.8 Sec (23.4-35.0) 01/27/25 16:26
Vital Signs
Vital Signs
Temp Pulse Resp BP Pulse Ox
99.8 F 88 21 98/68 97
01/27/25 23:00 01/27/25 23:05 01/27/25 23:05 01/27/25 23:00 01/27/25 23:19
CT Intake/Output/Weight
01/27/25 01/27/25 01/28/25
06:59 18:59 06:59
Intake Total 480 / 480 313.3 / 1115.2 801.9 / 1115.2
Output Total 495 / 940 445 / 940
Balance 480 / 480 -181.7 / 175.2 356.9 / 175.2
SaO2: 97
Physical Exam
-
General: Awake and AOx3
Cardiovascular: Regular rate & rhythm, No Murmurs and Rub
Respiratory: Decreased Breath Sounds
Sternum: Stable
Incision: Clean, Dry and Intact
Extremities: No Edema (1+ DP b/l)
Abdomen: soft, nontender, nondistended, +decreased bowel sounds
Data Reviewed
-
Lab Results: Results Reviewed
Medications: Active Meds Reviewed
Chest X-Ray: Report Reviewed and Image Reviewed
ECG: Report Reviewed and Image Reviewed
[2025-01-28 05:01] LABS: Glucose - Point of Care 104 mg/dl (70-99)
[2025-01-28 05:59] LABS: Glucose - Point of Care 94 mg/dl (70-99)
[2025-01-28] MEDS: ANCEF 5 IV ×2 (06:13→13:26)
[2025-01-28] MEDS: TYLENOL 1000 MG PO ×3 (06:15→22:13)
--- NOTE | 2025-01-28 06:25 | PTCARENOTE ---
Casey and jennifer d/stephane'robert @ 3546, dtv @7132
[2025-01-28 07:17] LABS: Glucose - Point of Care 105 mg/dl (70-99)
--- NOTE | 2025-01-28 08:00 | PTCARENOTE ---
pt received from previous RN, oriented, in bed. SR w/ LBBB on the monitor, HR 90s. A&V wires in place, DDD 40/10/10. palpable pulses. trace LE edema. pt on 6LNC, 98% POX. lungs diminished. IS encouraged. CTx3, no air leak or crepitus noted. pt
abdomen s/n, denies n/.v. tolerating clears. pt DTV post Wang removal. sternal incision approximated, CAROLYN. chest tube site old drainage. RIJ cordis maintained. PIV x2. insulin gtt running as ordered. L radial Alexia flushed, zeroed, and calibrated.
see worklist for VS, I&O, and assessment.
[2025-01-28 08:22] LABS: Glucose - Point of Care 97 mg/dl (70-99)
[2025-01-28] MEDS: CRESTOR 40 MG PO (08:24)
[2025-01-28] MEDS: SENOKOT-S 1 TABLET PO ×2 (08:24→19:34)
[2025-01-28] MEDS: MAGNESIUM OXIDE 500 MG PO ×2 (08:24→19:34)
[2025-01-28] MEDS: LOPRESSOR 12.5 MG PO (08:24)
[2025-01-28] MEDS: PROTONIX 40 MG PO (08:24)
[2025-01-28] MEDS: PLAVIX 75 MG PO (08:24)
[2025-01-28] MEDS: NEURONTIN 100 MG PO ×3 (08:24→22:13)
[2025-01-28] MEDS: LOW STRENGTH ASPIRIN 81 MG PO (08:24)
[2025-01-28] MEDS: LIDOCAINE 4% PATCH 1 PATCH TOPICAL (08:25)
[2025-01-28] MEDS: PACERONE 200 MG PO ×3 (08:25→22:13)
[2025-01-28] MEDS: BACTROBAN 2% OINTMENT 1 APPLIC NASAL ×2 (08:25→19:34)
[2025-01-28 09:12] LABS: Glucose - Point of Care 104 mg/dl (70-99)
--- NOTE | 2025-01-28 09:36 | PTCARENOTE ---
Bradley Hale dc'robert as ordered, dressing c/d/i. at bedside.
--- NOTE | 2025-01-28 09:41 | W.PN.ANS.POP ---
Anesthesia Post Operative
- Anesthesia Post Op Note
Vital Signs Stable-See Nursing Note: Yes
Airway Patent: Yes
Adequate Pain Control: Yes
Change in Mental Status: No
Current Postoperative Nausea & Vomiting: No
Anesthesia Complications: No
General Anesthetic Recall: No
Unplanned Admission: No
Post Op Hydration Adequate: Yes
[2025-01-28 10:36] LABS: Glucose - Point of Care 129 mg/dl (70-99)
--- NOTE | 2025-01-28 12:00 | PTCARENOTE ---
Addendum entered by Kacey Victor RN 01/28/25 14:20:
Bladder scan @1330-181ml, no urge to void, no c/o pain. fluid intake encouraged.
Original Note:
pt VSS, no changes in assessment. OOB to chair w/ minimal assistance. IS encouraged.
[2025-01-28 12:16] LABS: Glucose - Point of Care 113 mg/dl (70-99)
--- NOTE | 2025-01-28 12:32 | W.PN.INTV ---
Addendum entered and electronically signed by Josse Monroy MD 01/29/25 11:24:
Patient transferred out of ICU, facility maintenance helper service will sign off, please call as needed.
Original Note:
Today's Communication / Plan
Recommendations
Incentive spirometry
Assessment
-
64-year-old gentleman recently diagnosed with coronary artery disease and aortic stenosis. He was taken to the OR today
S/p coronary artery bypass graft x 2, aortic valve replacement with bioprosthetic valve, left atrial appendage exclusion, POD #1
Titrate off pressors per protocol
ECHO reviewed
Management of chest tubes per primary service
Patient extubated and doing well on nasal cannula
CXR reviewed, left apical tiny pneumothorax resolved
Maintain supplement oxygen as needed
No prior history of pulmonary disease, never smoked.
Can add nebulizers if needed
Aspiration precautions
Encouraged incentive spirometry, OOB/ambulation/early mobility
Advance diet as tolerated following extubation
GI prophylaxis if indicated for mechanical ventilation >48 hours
Monitor critical I/O's
Wang/chest tube output
Trend CBC for now
Can transfuse if indicated for Hb <7, plt <50 in surgical patients
DVT prophylaxis including SCDs
Insulin protocol initiated and ongoing
Transition to SQ/off as indicated per team
We will follow
Critical Care time [3] mins -- The patient is admitted for acute critical illness for the treatment of vital organ failure and/or prevention of further life-threatening conditions. Total care includes time spent in review of history, physical exam,
medications, hemodynamic/ventilator parameters, laboratory data, imaging and discussion with house staff, pharmacy, respiratory therapy, stores despatch hand, and nursing.
Subjective Dataa
Subjective Data
Date of Service:
Date of Service: January 28, 2025
Subjective:
Patient has been extubated, comfortably sitting in chair in no acute distress.
Review of Systems
Genitourinary: Other (All 14 systems reviewed and negative except as stated above in the history of present illness.)
Objective Data
Data Reviewed
Vital Signs / I&O / Oxygen:
Vital Signs
Temp Pulse Resp BP Pulse Ox
97.9 F 93 20 108/76 95
01/28/25 08:00 01/28/25 12:00 01/28/25 12:00 01/28/25 12:00 01/28/25 12:00
Intake and Output
01/27/25 01/28/25 01/29/25
06:59 06:59 07:59
Intake Total 480 / 480 1377.1 / 1388.1 66.2 / 66.2
Output Total 1420 / 1425 65 / 65
Balance 480 / 480 -42.9 / -36.9 1.2 / 1.2
SaO2 [CPAP/PSV] 99
SaO2 [SIMV] 91
SaO2 95
Nasal Cannula flow liters per 2
minute
Physical Exam
General: Comfortable
HEENT: Normocephalic
Cardiovascular: S1-S2
Respiratory: Clear and Non-Labored Respirations
GI: Soft
Neurology: Awake and Alert
Skin: Warm
Labs/Micro/Reports
Lab Data
01/28/25 03:04
01/28/25 03:04
Laboratory Results
01/27/25 01/27/25
16:26 18:49
PT 17.7 H
INR 1.43
APTT 31.8
pH 7.38 7.41
pCO2 41 41
pO2 73 L 88
HCO3 24.3 26.0
O2 Delivery Level
[2025-01-28] MEDS: FERRLECIT 110 MG IV (13:26)
--- NOTE | 2025-01-28 14:21 | W.PN.CARDCBS ---
Today's Communication / Plan
-
Supportive postop care
Impression / Plan
-
PCP: Fani Mayen MD
CDY: Jimy Garza MD
Impression:
Admitted to [facility] with near syncope and hypotension 01/22/25
Transferred to for cardiac cath 01/23/25
Nonischemic myocardial injury with troponin elevation due to severe , peak Troponin at [facility] 4646 (equivalent to 46 on assay)
Severe progressive symptomatic aortic stenosis
Status post 25 mm bioprosthetic AVR 01/27/2025
CAD
Status post CABG x 2 with sequential WILSON to LAD and diagonal 01/27/2025
s/p LAD PCI w/2 overlapping DONNELL at 07/06/24
Status post left atrial appendage clip 35 mm 01/27/2025
LBBB
New nonischemic cardiomyopathy EF 25-30%
Trileaflet, but functionally bicuspid AV with moderate peak/mean 56.7/33.3 mmHg and CHIDI 0.78 cm sq by echo at [facility] 12/05/24
Carotid disease, s/p R CEA (2017), LICS 50-70%
HTN
HLD
Echo 12/05/24: [facility] study, EF 55 to 60%, calcified anatomically trileaflet but functionally bicuspid AV with moderate peak/mean 56.7/33.3 mmHg and CHIDI 0.78 cm sq, mild MR
Echo 01/24/25: EF 40%, global hypokinesis with akinesis of the distal anterior wall, mild to moderate MR, severe aortic stenosis peak/mean 52/33 mmHg with CHIDI 0.7 cm sq
Cardiac catheterization 01/23/2025: LM: Normal. LAD: Patent overlapping [place] DONNELL mid LAD, diagonal with 60% mid stenosis. Left circumflex: Patent. RCA: Proximal 40% stenosis, 40% distal stenosis. PDA proximal 40% stenosis LV% with
anterolateral and apical hypokinesis. -LVEDP 25, no evidence of acute HF
Intra/postop JOVANA 01/27/2025: EF 40% with mildly reduced LV function. Status post 25 mm bioprosthetic AVR well-seated with no perivalvular leak, mean gradient 10
PLAN:
Status post 25 mm bioprosthetic AVR, CABG x 2 with sequential WILSON to LAD and diagonal and left atrial appendage clip 35 mm 01/27/2025
-Hemodynamically stable off pressors
-Postop JOVANA with well-seated 25 mm bioprosthetic AVR with mean gradient 10 mmHg
-Post op EKG sinus rhythm with known left bundle branch block
-Continue postop amiodarone A-fib prophylaxis
-Continue aspirin/Plavix
-Chest tube management per CT surgery
-Continue to monitor and trend hemoglobin, renal function and electrolytes postoperatively
-Supportive postop care
-Eventual attempt at GDMT with low-dose beta-samara, SHELBIE/ARB/ARNI, Aldactone and SGLT2 as renal function and blood pressure allow and postop course
-LDL 71 and outpatient dose of Crestor 40 mg daily has been continued
HPI: 64 y/o white male, PMH sig for CAD, recent LAD PCI w/2 overlapping DONNELL (07/06/24), LBBB, moderate , taking DAPT w/asa, plavix.
Presented to [facility] ER after exertional chest pain on exercise bike. He felt like he was going to pass out, laid down on a bed and called 911. He was hypotensive and ashen. CXR was suspected to be pulmonary edema. HS troponin at 4646, CPK 4961, MB
600 and still trending. Echo this morning with mod-severe LVS dysfunction, EF 25-30%, anteroseptal HK, mod-sev (PG/MG 58.5/37.2, CHIDI 0.8cm2). This is worse than echo 12/05/24 where EF was 55-60%, no WMA and mod (PG/MG 56.7/33.3, CHIDI 0.78cm2).
He was started on heparin and transferred today for [facility].
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
Subjective
Date of Service: January 28, 2025
Seen and examined with family members at bedside. Postop soreness with out symptoms of angina.
Objective
Labs:
01/28/25 03:04
01/28/25 03:04
Labs
Hgb 9.7 g/dL (13.0-18.0) L 01/28/25 03:04
Hct 28.5 % (39.0-52.0) L 01/28/25 03:04
Plt Count 163 10^3/uL (130-400) 01/28/25 03:04
PT 17.7 Sec (11.4-14.6) H 01/27/25 16:26
INR 1.43 01/27/25 16:26
APTT 31.8 Sec (23.4-35.0) 01/27/25 16:26
Sodium 136 mmol/L (135-145) 01/28/25 03:04
Potassium 4.6 mmol/L (3.5-5.1) 01/28/25 03:04
BUN 18 mg/dl (9-20) 01/28/25 03:04
Creatinine 0.8 mg/dL (0.7-1.3) 01/28/25 03:04
Glucose 104 mg/dl (70-99) H 01/28/25 03:04
Vital Signs and I&O:
Vital Signs
Temp Pulse Resp BP Pulse Ox
98.7 F 98 18 111/69 95
01/28/25 12:00 01/28/25 14:00 01/28/25 14:00 01/28/25 14:00 01/28/25 14:00
Vital Signs
Temp Pulse Resp BP Pulse Ox
98.7 F 98 18 111/69 95
01/28/25 12:00 01/28/25 14:00 01/28/25 14:00 01/28/25 14:00 01/28/25 14:00
Intake & Output
01/26/25 01/27/25 01/28/25 01/29/25
06:59 06:59 06:59 07:59
Intake Total 480 / 480 1377.1 / 1388.1 198.6 / 198.6
Output Total 1420 / 1425 110 / 110
Balance 480 / 480 -42.9 / -36.9 88.6 / 88.6
Physical Exam
Physical Exam
GEN: Awake alert and oriented, nasal cannula O2.
HEENT: mmm
LUNGS: Bronchovesicular breath sounds, decreased. Positive chest tubes
CV: Reg, S1/S2, no murmur rub or gallop
ABD: soft, BS+, NT/ND
EXT: Trace pedal edema
[2025-01-28 14:26] LABS: Glucose - Point of Care 199 mg/dl (70-99)
[2025-01-28] MEDS: NSS IV (14:40)
--- NOTE | 2025-01-28 16:00 | PTCARENOTE ---
pt VSS, no changes in assessment. chest tube dressing changed. IS encouraged.
[2025-01-28 16:06] LABS: Glucose - Point of Care 200 mg/dl (70-99)
[2025-01-28 17:05] LABS: Glucose - Point of Care 188 mg/dl (70-99)
[2025-01-28 17:23] LABS: Glucose - Point of Care 141 mg/dl (70-99)
--- NOTE | 2025-01-28 18:21 | PTCARENOTE ---
insulin gtt dc'd as ordered. pt bladder scanned for 314ml, pt able to void 350ml.
[2025-01-28] MEDS: LOPRESSOR 25 MG PO (19:34)
--- NOTE | 2025-01-28 20:21 | PTCARENOTE ---
received pt from previous rn, VSS, AAOx4, NSR w/ LBBB and prolonged QT. HR 90s, + pulses, trace ankle edema, A/V wires set to DDD 40/10/0.5 40/10/2.0. lung sounds diminished, pox 95% on RA CTx3 to -20 cm wall suction draining bloody drainage - no
air leak, tidaling, or crepitus noted. hypoactive bs, pt voids spontaneously in urinal, sternal incision intact. RIJ cordis infusing KVO, PIV x2 present - #20 LAC and #18 RAC. plan of care discussed questions encouraged.
[2025-01-28] MEDS: ANESTHETIC LOZENGE 1 LOZENGE PO (22:46)
[2025-01-29] VITALS (11 sets, daily range): BP systolic 100–116; BP diastolic 56–84; BMI 27.2
--- NOTE | 2025-01-29 00:13 | PTCARENOTE ---
VSS, NSR w/ LBBB and prolonged QT, HR 80s, assessment remains unchanged otherwise.
--- NOTE | 2025-01-29 00:32 | W.PN.CT ---
Addendum entered and electronically signed by Malcom Vences MD 01/29/25 09:12:
I saw and examined the patient.
The PA's note was reviewed and I agree with the note.
Comment:
No major overnight issues. Doing well.
DC chest tubes, DC pacing wires
Maintain Cordis
Out of bed, I-S, ambulate
Continue diuresis
Original Note:
Today's Communication / Plan
-
No issues overnight�
Consider dc chest tubes (MS*2/L pleural*1)�
Consider removing pacing wires�
Continue OOB to chair and working IS�
Current meds ((ASA, Plavix, Crestor, Lopressor, Amio, Protonix)�
Maintain cordis�
Assessment / Plan
-
- Aortic valve stenosis with acute coronary syndrome- s/p Surgical aortic valve replacement [25 mm Higgins Inspiris Resilia bioprosthesis]; CABG x 2 (In situ WILSON to high diagonal sequential to LAD); Left atrial appendage exclusion [35 mm clip] by
Dr. Foy on 01/27/25, pod #2
- Intraop JOVANA: LVEF on intraoperative JOVANA was 40% and 40% post procedure. There was some mild anterior apical akinesis on preoperative JOVANA and a significantly elevated pulmonary pressures to the 60s. Following surgery his EF did initially improved
to approximately 60% and later settled to 45%. The regional wall motion abnormality did appear to improve. There was bruising around the high diagonal territory that was concerning for an VT. His left atrial appendage was verified to be free of
any thrombus or debris preoperatively and found to be totally occlusive postoperatively with 35mm clip. There was a small residual stump. There was no prosthetic PVL or AI. Mean gradient across the prosthesis was 10 mmHg initially while he was
hyperdynamic coming off pump.
- Severe aortic valve stenosis [bicuspid morphology, type II]
- Single-vessel coronary artery disease, s/p LAD DONNELL x2 07/06/24, on DAPT
- Pre-existing LBBB
- Hypertension
- Hyperlipidemia
- Bilateral carotid stenosis, status post right carotid endarterectomy (LICA 50-69%)
- Acute systolic and diastolic heart failure with a EF of 25 to 30%
- Acute postop blood loss anemia- stable, no transfusion
- Acute postop atelectasis
- Acute postop hypovolemia with subsequent hypervolemia
Subjective
-
Date of Service: January 29, 2025
Objective Data
-
PT 17.7 Sec (11.4-14.6) H 01/27/25 16:26
INR 1.43 01/27/25 16:26
APTT 31.8 Sec (23.4-35.0) 01/27/25 16:26
Vital Signs
Vital Signs
Temp Pulse Resp BP Pulse Ox
98.6 F 87 18 106/68 95
01/29/25 00:13 01/29/25 00:00 01/29/25 00:13 01/28/25 23:57 01/29/25 00:13
CT Intake/Output/Weight
01/28/25 01/28/25 01/29/25
06:59 18:59 07:59
Intake Total 1063.8 / 1388.1 247.6 / 257.6 10 / 257.6
Output Total 925 / 1425 510 / 715 205 / 715
Balance 138.8 / -36.9 -262.4 / -457.4 -195 / -457.4
SaO2: 95
Physical Exam
-
General: Awake, Oriented and AOx3
Cardiovascular: Regular rate & rhythm
Respiratory: Clear
Sternum: Stable
Incision: Clean, Dry and Intact
Extremities: Edema +1
[2025-01-29] MEDS: ROXICODONE 2.5 MG PO (03:59)
--- NOTE | 2025-01-29 04:21 | PTCARENOTE ---
routine labs obtained VSS, pt c/o pain 01/30 2.5mg of Roxicodone given. NSR w/ LBBB and prolonged QT, assessment remains unchanged otherwise
[2025-01-29 04:26] LABS: Hematocrit 26.6 % (39.0-52.0); Hemoglobin 8.9 g/dL (13.0-18.0); Mean Corp Hgb Conc. 33.5 g/dL (33.0-37.0); Mean Corpuscular Hgb 30.9 pg (27.0-31.0); Mean Corpuscular Volume 92.4 fL (80.0-94.0); Mean Platelet Volume 9.5 fL (7.4-10.4); Platelet Count 160 10^3/uL (130-400); Red Blood Cell Count 2.88 10^6/uL (4.70-6.10); Red Cell Dist. Width 12.5 % (11.5-14.5); White Blood Cell Count 14.8 10^3/uL (4.8-10.8)
[2025-01-29 04:46] LABS: Blood Urea Nitrogen 28 mg/dl (9-20); Calcium 8.5 mg/dl (8.4-10.2); Carbon Dioxide 27 mmol/L (22-30); Chloride 98 mmol/L (98-107); Estimated Creatinine Clearance 96 ml/min; Glucose 136 mg/dl (70-99); Magnesium 2.3 mg/dl (1.6-2.3); Potassium 4.7 mmol/L (3.5-5.1); Sodium 132 mmol/L (135-145); eGFR > 60.00
[2025-01-29] MEDS: TYLENOL 1000 MG PO ×3 (06:23→21:49)
--- NOTE | 2025-01-29 08:00 | PTCARENOTE ---
pt received from previous RN, oriented, OOB in chair. SR w/ LBBB on the monitor, HR 80s. A&V wires in place, DDD 40/10/10. palpable pulses. trace/+1 generalized edema. pt on RA, 93% POX. lungs diminished. IS encouraged. CTx3, no air leak or crepitus
noted. pt abdomen s/n, denies n/v. tolerating diet. pt voids. 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 chest tube site c/d/i. RIJ cordis maintained. PIV x2. see worklist for VS, I&O, and assessment.
[2025-01-29] MEDS: LIDOCAINE 4% PATCH 1 PATCH TOPICAL (09:37)
[2025-01-29] MEDS: LOPRESSOR 25 MG PO ×2 (09:37→19:58)
[2025-01-29] MEDS: KCL 20 MEQ PO (09:37)
[2025-01-29] MEDS: NEURONTIN 100 MG PO ×3 (09:38→21:49)
[2025-01-29] MEDS: PLAVIX 75 MG PO (09:38)
[2025-01-29] MEDS: PACERONE 200 MG PO ×3 (09:38→21:49)
[2025-01-29] MEDS: PROTONIX 40 MG PO (09:38)
[2025-01-29] MEDS: SENOKOT-S 1 TABLET PO ×2 (09:38→19:58)
[2025-01-29] MEDS: LOW STRENGTH ASPIRIN 81 MG PO (09:38)
[2025-01-29] MEDS: LASIX 40 MG IV (09:38)
[2025-01-29] MEDS: CRESTOR 40 MG PO (09:38)
[2025-01-29] MEDS: MAGNESIUM OXIDE 500 MG PO ×2 (09:38→19:58)
[2025-01-29] MEDS: BACTROBAN 2% OINTMENT 1 APPLIC NASAL ×2 (09:39→19:59)
--- NOTE | 2025-01-29 10:15 | PTCARENOTE ---
A&V wires dc'd by GABRIEL Ryder @~0830. q15min VS completed. CTx3 dc'd @~0935, dressing c/d/i. pt OOB to chair w/ minimal assist. shampoo cap applied. at bedside.
--- NOTE | 2025-01-29 12:11 | W.PN.CARDCBS ---
Today's Communication / Plan
-
Supportive postop care
Impression / Plan
-
PCP: Fani Mayen MD
CDY: Jimy Garza MD
Impression:
Admitted to [facility] with near syncope and hypotension 01/22/25
Transferred to for cardiac cath 01/23/25
Nonischemic myocardial injury with troponin elevation due to severe , peak Troponin at [facility] 4646 (equivalent to 46 on assay)
Severe progressive symptomatic aortic stenosis
Status post 25 mm bioprosthetic AVR 01/27/2025
CAD
Status post CABG x 2 with sequential WILSON to LAD and diagonal 01/27/2025
s/p LAD PCI w/2 overlapping DONNELL at 07/06/24
Status post left atrial appendage clip 35 mm 01/27/2025
LBBB
New nonischemic cardiomyopathy EF 25-30%
Trileaflet, but functionally bicuspid AV with moderate peak/mean 56.7/33.3 mmHg and CHIDI 0.78 cm sq by echo at [facility] 12/05/24
Carotid disease, s/p R CEA (2017), LICS 50-70%
HTN
HLD
Echo 12/05/24: [facility] study, EF 55 to 60%, calcified anatomically trileaflet but functionally bicuspid AV with moderate peak/mean 56.7/33.3 mmHg and CHIDI 0.78 cm sq, mild MR
Echo 01/24/25: EF 40%, global hypokinesis with akinesis of the distal anterior wall, mild to moderate MR, severe aortic stenosis peak/mean 52/33 mmHg with CHIDI 0.7 cm sq
Cardiac catheterization 01/23/2025: LM: Normal. LAD: Patent overlapping [place] DONNELL mid LAD, diagonal with 60% mid stenosis. Left circumflex: Patent. RCA: Proximal 40% stenosis, 40% distal stenosis. PDA proximal 40% stenosis LV% with
anterolateral and apical hypokinesis. -LVEDP 25, no evidence of acute HF
Intra/postop JOVANA 01/27/2025: EF 40% with mildly reduced LV function. Status post 25 mm bioprosthetic AVR well-seated with no perivalvular leak, mean gradient 10
PLAN:
Status post 25 mm bioprosthetic AVR, CABG x 2 with sequential WILSON to LAD and diagonal and left atrial appendage clip 35 mm 01/27/2025
-Hemodynamically stable off pressors
-Postop JOVANA with well-seated 25 mm bioprosthetic AVR with mean gradient 10 mmHg
-Post op EKG sinus rhythm with known left bundle branch block
-Continue postop amiodarone A-fib prophylaxis
-Continue aspirin/Plavix
-LDL 71 and outpatient dose of Crestor 40 mg daily has been continued
-Chest tube just removed by CT surgery
-Continue to monitor and trend hemoglobin: preop hemoglobin 12.9 today 8.9. Continue IV iron
-Renal function electrolytes stable. Sodium slightly low today, will monitor
-Agree with plan for Lasix today for postop fluid retention
-Eventual attempt at GDMT with low-dose beta-samara, SHELBIE/ARB/ARNI, Aldactone and SGLT2 as renal function and blood pressure allow and postop course
-Increase activity. Incentive spirometry
-Supportive postop care
HPI: 64 y/o white male, PMH sig for CAD, recent LAD PCI w/2 overlapping DONNELL (07/06/24), LBBB, moderate , taking DAPT w/asa, plavix.
Presented to [facility] ER after exertional chest pain on exercise bike. He felt like he was going to pass out, laid down on a bed and called 911. He was hypotensive and ashen. CXR was suspected to be pulmonary edema. HS troponin at 4646, CPK 4961, MB
600 and still trending. Echo this morning with mod-severe LVS dysfunction, EF 25-30%, anteroseptal HK, mod-sev (PG/MG 58.5/37.2, CHIDI 0.8cm2). This is worse than echo 12/05/24 where EF was 55-60%, no WMA and mod (PG/MG 56.7/33.3, CHIDI 0.78cm2).
He was started on heparin and transferred today for [facility].
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
Subjective
Date of Service: January 29, 2025
Seen and examined just after chest tubes removed by CT surgery. No overnight events.
Objective
Labs:
01/29/25 04:04
01/29/25 04:04
Labs
Hgb 8.9 g/dL (13.0-18.0) L 01/29/25 04:04
Hct 26.6 % (39.0-52.0) L 01/29/25 04:04
Plt Count 160 10^3/uL (130-400) 01/29/25 04:04
PT 17.7 Sec (11.4-14.6) H 01/27/25 16:26
INR 1.43 01/27/25 16:26
APTT 31.8 Sec (23.4-35.0) 01/27/25 16:26
Sodium 132 mmol/L (135-145) L 01/29/25 04:04
Potassium 4.7 mmol/L (3.5-5.1) 01/29/25 04:04
BUN 28 mg/dl (9-20) H 01/29/25 04:04
Creatinine 0.8 mg/dL (0.7-1.3) 01/29/25 04:04
Glucose 136 mg/dl (70-99) H 01/29/25 04:04
Vital Signs and I&O:
Vital Signs
Temp Pulse Resp BP Pulse Ox
98.2 F 82 18 116/59 93
01/29/25 08:00 01/29/25 10:45 01/29/25 08:00 01/29/25 09:45 01/29/25 08:02
Vital Signs
Temp Pulse Resp BP Pulse Ox
98.2 F 82 18 116/59 93
01/29/25 08:00 01/29/25 10:45 01/29/25 08:00 01/29/25 09:45 01/29/25 08:02
Intake & Output
01/27/25 01/28/25 01/29/25 01/30/25
05:59 05:59 06:59 06:59
Intake Total 70 / 70
Output Total 35 / 35
Balance 35 / 35
Physical Exam
Physical Exam
GEN: Awake alert and oriented
HEENT: mmm
LUNGS: Bronchovesicular breath sounds, decreased.
CV: Reg, S1/S2, no murmur rub or gallop
ABD: soft, BS+, NT/ND
EXT: Trace pedal edema
--- NOTE | 2025-01-29 12:30 | PTCARENOTE ---
pt VSS, no changes in assessment. pt OOB in chair. pt ambulated in hallway w/ stand by assist.
[2025-01-29] MEDS: NSS 500 IV (13:56)
[2025-01-29] MEDS: FERRLECIT 110 MG IV (13:56)
--- NOTE | 2025-01-29 16:22 | PTCARENOTE ---
pt VSS, no changes in assessment. pt ambulating in hallway w/ stand by assist. IS encouraged. voids in urinal.
--- NOTE | 2025-01-29 20:06 | PTCARENOTE ---
Assumed care of pt from dayshift RN. Walking rounds completed. Pt OOB to chair. AAOx3. SR w/ L BBB on the tele monitor. HR 80s. BP stable. Palpable pulses throughout. Trace LE edema. Pt on RA. POX 96%. Lung sounds diminished B/L. Deep breathing and
IS encouraged. Pt abdomen soft/nontender. +BS. Pt voiding spontaneously. Sternal incision approximated w/ surgical adhesive and CAROLYN. CT site C/D/I. Right IJ cordis and PIV x2 intact. Pt denies significant pain at this time. See worklist for full
nursing assessment and interventions. Call carballo within reach.
[2025-01-30] VITALS (10 sets, daily range): BP systolic 97–119; BP diastolic 54–99; PULSE 83; O2SAT 91–92; BMI 27.1
--- NOTE | 2025-01-30 00:11 | PTCARENOTE ---
No acute change in assessment. Pt SR on the tele monitor. HR 80s. BP stable. Pt 93% on RA. All surgical sites stable. No pain at this time. Call carballo within reach.
--- NOTE | 2025-01-30 00:32 | W.PN.CT ---
Today's Communication / Plan
-
No issues overnight�
Continue OOB to chair and working IS�
Current meds ((ASA, Plavix, Crestor, Lopressor, Amio, Protonix)�
Consider removal of cordis�
Plan for possible DC�
Assessment / Plan
-
- Aortic valve stenosis with acute coronary syndrome- s/p Surgical aortic valve replacement [25 mm Higgins Inspiris Resilia bioprosthesis]; CABG x 2 (In situ WILSON to high diagonal sequential to LAD); Left atrial appendage exclusion [35 mm clip] by
Dr. Foy on 01/27/25, pod #3
- Intraop JOVANA: LVEF on intraoperative JOVANA was 40% and 40% post procedure. There was some mild anterior apical akinesis on preoperative JOVANA and a significantly elevated pulmonary pressures to the 60s. Following surgery his EF did initially improved
to approximately 60% and later settled to 45%. The regional wall motion abnormality did appear to improve. There was bruising around the high diagonal territory that was concerning for an [place]. His left atrial appendage was verified to be free of
any thrombus or debris preoperatively and found to be totally occlusive postoperatively with 35mm clip. There was a small residual stump. There was no prosthetic PVL or AI. Mean gradient across the prosthesis was 10 mmHg initially while he was
hyperdynamic coming off pump.
- Severe aortic valve stenosis [bicuspid morphology, type II]
- Single-vessel coronary artery disease, s/p LAD DONNELL x2 07/06/24, on DAPT
- Pre-existing LBBB
- Hypertension
- Hyperlipidemia
- Bilateral carotid stenosis, status post right carotid endarterectomy (LICA 50-69%)
- Acute systolic and diastolic heart failure with a EF of 25 to 30%
- Acute postop blood loss anemia- stable, no transfusion
- Acute postop atelectasis
- Acute postop hypovolemia with subsequent hypervolemia
Subjective
-
Date of Service: January 30, 2025
Objective Data
-
PT 17.7 Sec (11.4-14.6) H 01/27/25 16:26
INR 1.43 01/27/25 16:26
APTT 31.8 Sec (23.4-35.0) 01/27/25 16:26
Vital Signs
Vital Signs
Temp Pulse Resp BP Pulse Ox
98.5 F 85 18 108/59 93
01/30/25 00:09 01/30/25 00:09 01/30/25 00:09 01/29/25 19:57 01/30/25 00:09
CT Intake/Output/Weight
01/29/25 01/29/25 01/30/25
06:59 18:59 06:59
Intake Total 700 / 740 40 / 740
Output Total 360 / 560 200 / 560
Balance 340 / 180 -160 / 180
SaO2: 93
Physical Exam
-
General: Awake, Oriented and AOx3
Cardiovascular: Regular rate & rhythm
Respiratory: Clear and Equal
Sternum: Stable
Incision: Clean, Dry and Intact
Extremities: No Edema
--- NOTE | 2025-01-30 03:40 | SUR.OPER ---
No change in assessment. VSS. Labs drawn and sent. Call carballo within reach.
[2025-01-30 04:01] LABS: Hematocrit 23.8 % (39.0-52.0); Mean Corp Hgb Conc. 33.6 g/dL (33.0-37.0); Mean Corpuscular Hgb 30.9 pg (27.0-31.0); Mean Corpuscular Volume 91.9 fL (80.0-94.0); Mean Platelet Volume 9.9 fL (7.4-10.4); Platelet Count 151 10^3/uL (130-400); Red Blood Cell Count 2.59 10^6/uL (4.70-6.10); Red Cell Dist. Width 12.5 % (11.5-14.5); White Blood Cell Count 11.1 10^3/uL (4.8-10.8)
[2025-01-30 04:25] LABS: Blood Urea Nitrogen 29 mg/dl (9-20); Calcium 8.4 mg/dl (8.4-10.2); Carbon Dioxide 28 mmol/L (22-30); Chloride 98 mmol/L (98-107); Estimated Creatinine Clearance 96 ml/min; Glucose 120 mg/dl (70-99); Magnesium 2.3 mg/dl (1.6-2.3); Potassium 4.5 mmol/L (3.5-5.1); Sodium 131 mmol/L (135-145); eGFR > 60.00
[2025-01-30] MEDS: TYLENOL 1000 MG PO ×3 (06:15→21:37)
[2025-01-30] MEDS: BACTROBAN 2% OINTMENT 1 APPLIC NASAL ×2 (07:30→21:35)
[2025-01-30] MEDS: LIDOCAINE 4% PATCH 1 PATCH TOPICAL (07:34)
[2025-01-30] MEDS: PLAVIX 75 MG PO (07:35)
[2025-01-30] MEDS: PROTONIX 40 MG PO (07:35)
[2025-01-30] MEDS: PACERONE 200 MG PO ×3 (07:36→21:37)
[2025-01-30] MEDS: MAGNESIUM OXIDE 500 MG PO ×2 (07:36→21:36)
[2025-01-30] MEDS: CRESTOR 40 MG PO (07:36)
[2025-01-30] MEDS: SENOKOT-S 1 TABLET PO (07:36)
[2025-01-30] MEDS: NEURONTIN 100 MG PO ×3 (07:36→21:36)
[2025-01-30] MEDS: LOW STRENGTH ASPIRIN 81 MG PO (07:37)
[2025-01-30] MEDS: LOPRESSOR 25 MG PO ×2 (07:39→21:35)
--- NOTE | 2025-01-30 09:00 | PTCARENOTE ---
Assumed care of pt from nightshift RN. rounds completed. AAOx3. SR w/ L BBB on the monitor. PT on RA 97%O2. Lung sounds diminished B/L. GI and WNL. PT walking rasheed independently. Cordis removed w/o complications and PT showered.
--- NOTE | 2025-01-30 11:22 | W.PN.CARDCBS ---
Addendum entered and electronically signed by Brant Hooper DO 01/30/25 14:33:
I saw and examined the patient.
The Viticulturist's note was reviewed and I agree with the note.
Comment:
Plan:
Cont post op care
Resume Lisinopril at lower dose 2.5 mg daily
Cont Metoprolol
Cont DAPT
Cont statin
Outpt follow up with ATC
Original Note:
Today's Communication / Plan
-
Start low-dose lisinopril 2.5 mg
Continue metoprolol, aspirin, Plavix, statin
Impression / Plan
-
PCP: Fani Mayen MD
CDY: Jimy Garza MD
Impression:
Admitted to [facility] with near syncope and hypotension 01/22/25
Transferred to for cardiac cath 01/23/25
Nonischemic myocardial injury with troponin elevation due to severe , peak Troponin at [facility] 4646 (equivalent to 46 on assay)
Severe progressive symptomatic aortic stenosis
Status post 25 mm bioprosthetic AVR 01/27/2025
CAD
Status post CABG x 2 with sequential WILSON to LAD and diagonal 01/27/2025
s/p LAD PCI w/2 overlapping DONNELL at 07/06/24
Status post left atrial appendage clip 35 mm 01/27/2025
LBBB
New nonischemic cardiomyopathy EF 25-30%
Trileaflet, but functionally bicuspid AV with moderate peak/mean 56.7/33.3 mmHg and CHIDI 0.78 cm sq by echo at [facility] 12/05/24
Carotid disease, s/p R CEA (2017), LICS 50-70%
HTN
HLD
Echo 12/05/24: [facility] study, EF 55 to 60%, calcified anatomically trileaflet but functionally bicuspid AV with moderate peak/mean 56.7/33.3 mmHg and CHIDI 0.78 cm sq, mild MR
Echo 01/24/25: EF 40%, global hypokinesis with akinesis of the distal anterior wall, mild to moderate MR, severe aortic stenosis peak/mean 52/33 mmHg with CHIDI 0.7 cm sq
Cardiac catheterization 01/23/2025: LM: Normal. LAD: Patent overlapping [place] DONNELL mid LAD, diagonal with 60% mid stenosis. Left circumflex: Patent. RCA: Proximal 40% stenosis, 40% distal stenosis. PDA proximal 40% stenosis LV% with
anterolateral and apical hypokinesis. -LVEDP 25, no evidence of acute HF
Intra/postop JOVANA 01/27/2025: EF 40% with mildly reduced LV function. Status post 25 mm bioprosthetic AVR well-seated with no perivalvular leak, mean gradient 10
PLAN:
Status post 25 mm bioprosthetic AVR, CABG x 2 with sequential WILSON to LAD and diagonal and left atrial appendage clip 35 mm 01/27/2025
-Hemodynamically stable off pressors
-Postop JOVANA with well-seated 25 mm bioprosthetic AVR with mean gradient 10 mmHg
-Post op EKG sinus rhythm with known left bundle branch block; telemetry remains stable without any significant arrhythmias
-Continue postop amiodarone A-fib prophylaxis
-Continue aspirin/Plavix
-LDL 71 and outpatient dose of Crestor 40 mg daily has been continued
-All lines and chest tubes out
-Continue to monitor and trend hemoglobin: preop hemoglobin 12.9 today 8.0. Continue IV iron
-Renal function and electrolytes stable. Sodium slightly low today, will monitor
-Appears euvolemic on examination
-Chest x-ray 01/30/2025 with bibasilar subsegmental atelectasis left greater than right and small left pleural effusion
-Blood pressure remains somewhat on the low side but should be able to tolerate low-dose SHELBIE. Will start lisinopril 2.5 mg daily
-GDMT with low-dose beta-samara, SHELBIE/ARB/ARNI, Aldactone and SGLT2 as blood pressure allows
-Increase activity. Incentive spirometry
-Supportive postop care
HPI: 64 y/o white male, PMH sig for CAD, recent LAD PCI w/2 overlapping DONNELL (07/06/24), LBBB, moderate , taking DAPT w/asa, plavix.
Presented to [facility] ER after exertional chest pain on exercise bike. He felt like he was going to pass out, laid down on a bed and called 911. He was hypotensive and ashen. CXR was suspected to be pulmonary edema. HS troponin at 4646, CPK 4961, MB
600 and still trending. Echo this morning with mod-severe LVS dysfunction, EF 25-30%, anteroseptal HK, mod-sev (PG/MG 58.5/37.2, CHIDI 0.8cm2). This is worse than echo 12/05/24 where EF was 55-60%, no WMA and mod (PG/MG 56.7/33.3, CHIDI 0.78cm2).
He was started on heparin and transferred today for [facility].
Progress Note - Manager Mobile
Subjective
Date of Service: January 30, 2025
Patient seen and examined. Patients at bedside. He reports overall he is feeling well but remains fatigued. He was able to work with PT and go up steps today.
Objective
Labs:
01/30/25 03:27
01/30/25 03:27
Labs
Hgb 8.0 g/dL (13.0-18.0) L 01/30/25 03:27
Hct 23.8 % (39.0-52.0) L 01/30/25 03:27
Plt Count 151 10^3/uL (130-400) 01/30/25 03:27
PT 17.7 Sec (11.4-14.6) H 01/27/25 16:26
INR 1.43 01/27/25 16:26
APTT 31.8 Sec (23.4-35.0) 01/27/25 16:26
Sodium 131 mmol/L (135-145) L 01/30/25 03:27
Potassium 4.5 mmol/L (3.5-5.1) 01/30/25 03:27
BUN 29 mg/dl (9-20) H 01/30/25 03:27
Creatinine 0.8 mg/dL (0.7-1.3) 01/30/25 03:27
Glucose 120 mg/dl (70-99) H 01/30/25 03:27
Vital Signs and I&O:
Vital Signs
Temp Pulse Resp BP Pulse Ox
98.0 F 78 16 114/99 94
01/30/25 08:00 01/30/25 11:00 01/30/25 08:00 01/30/25 10:48 01/30/25 10:48
Vital Signs
Temp Pulse Resp BP Pulse Ox
98.0 F 78 16 114/99 94
01/30/25 08:00 01/30/25 11:00 01/30/25 08:00 01/30/25 10:48 01/30/25 10:48
Intake & Output
01/28/25 01/29/25 01/30/25 01/31/25
05:59 06:59 06:59 06:59
Intake Total 800 / 800
Output Total 560 / 560 400 / 400
Balance 240 / 240 -390 / -390
Physical Exam
Physical Exam
GEN: No distress, awake, Ox3, sitting in chair
HEENT: supple, anicteric, mmm
LUNGS: Mildly decreased at left base otherwise CTA, no wheezes/rales
CV: Reg, S1/S2, no murmur, rub or gallop
Chest: Sternotomy stable, incision well-approximated
ABD: soft, BS+, NT/ND
EXT: No edema, clubbing or cyanosis
NEURO: Gross non-focal
SKIN: No rash warm, dry, pink
[2025-01-30] MEDS: ZESTRIL 2.5 MG PO (12:45)
--- NOTE | 2025-01-30 13:00 | PTCARENOTE ---
no change from previous assessment
--- NOTE | 2025-01-30 15:06 | CM ---
Chart reviewed. Patient is independent of ADLS, lives with his in a [address], [address] [place], 0 [address]. Plan is for the patient to return home with CT Transitional RN. CM to follow
--- NOTE | 2025-01-30 15:10 | CM ---
Chart reviewed. Patient is in the OR today. Patient is independent of ADLS, lives with her and son in a [address], [address] [place], 0 DME. Plan is for the patient to return home. CM to follow
[2025-01-30] MEDS: FERRLECIT 110 MG IV (15:23)
[2025-01-30] MEDS: NSS 500 IV (15:24)
--- NOTE | 2025-01-30 16:00 | PTCARENOTE ---
no change from previous assessment
[2025-01-30] MEDS: ANESTHETIC LOZENGE 1 LOZENGE PO (16:46)
--- NOTE | 2025-01-30 21:15 | PTCARENOTE ---
Report received from ANTOINETTE Culp. PT assessed and VS done. See flowsheet. Pt sitting in recliner chair, visiting with son. Awake, alert, Or x 4. Speech clear. Uses all extremities equally x 4. Pt on room air. Sats 94-95%. BBS present, slightly
diminished B bases. CDB and IS encouraged. Audible heart tones. BP on R upper arm higher than L upper arm. Discussed giving metoprolol 25 mg as scheduled with PA> Given per order. Pt in SR with pre-existing LBBB. For pulse and wound assessments,
see flowsheets. Belly soft, nontender. Normoactive bs x 4. Pt reports 2 BMs today.Pt voids in toilet, clear and yellow urine. Ed, PA at bedside to assess pt. Ongoing plan of care.
[2025-01-30] MEDS: SENOKOT-S PO (21:36)
[2025-01-31] VITALS (26 sets, daily range): BP systolic 94–157; BP diastolic 52–70; BMI 27.4
[2025-01-31] MEDS: ROXICODONE 2.5 MG PO (00:09)
--- NOTE | 2025-01-31 00:15 | PTCARENOTE ---
Pt called out to RN. C/O 01/02 R shoulder blade/R upper back pain. Roxicodone 2.5 mg po given for c/o pain. VS done. Pt attempting to go back to sleep.
--- NOTE | 2025-01-31 04:26 | W.PN.CT ---
Today's Communication / Plan
-
Plan:
-No major issues overnight. Hemodynamically and neurologically intact
-Off all drips
-BP has been soft postop. Tolerating resumption of BB and low dose Lisinopril
-H/H noted to be 7.5/21.7 this AM, down from 8.0/23.8, consider 1u PRBC and Lasix. Will need type and cross before transfusion ()
-Switched Lopressor to Toprol XL given cardiomyopathy (EF 25-30%; improved to 40% postop)
-Cont. current meds (ASA, Plavix, Crestor, Toprol XL, Amio, Protonix)�
-F/u 2-view cxr
-Encourage use of IS
-Gentle diuresis for hyponatremia
-OOB into chair/Ambulate
-D/C home
Assessment / Plan
-
- Aortic valve stenosis with acute coronary syndrome- s/p Surgical aortic valve replacement [25 mm Higgins Inspiris Resilia bioprosthesis]; CABG x 2 (In situ WILSON to high diagonal sequential to LAD); Left atrial appendage exclusion [35 mm clip] by
Dr. Foy on 01/27/25, pod #4
- Intraop JOVANA: LVEF on intraoperative JVOANA was 40% and 40% post procedure. There was some mild anterior apical akinesis on preoperative JOVANA and a significantly elevated pulmonary pressures to the 60s. Following surgery his EF did initially improved
to approximately 60% and later settled to 45%. The regional wall motion abnormality did appear to improve. There was bruising around the high diagonal territory that was concerning for an [place]. His left atrial appendage was verified to be free of
any thrombus or debris preoperatively and found to be totally occlusive postoperatively with 35mm clip. There was a small residual stump. There was no prosthetic PVL or AI. Mean gradient across the prosthesis was 10 mmHg initially while he was
hyperdynamic coming off pump.
- Severe aortic valve stenosis [bicuspid morphology, type II]
- Single-vessel coronary artery disease, s/p LAD DONNELL x2 07/06/24, on DAPT
- Pre-existing LBBB
- Hypertension
- Hyperlipidemia
- Bilateral carotid stenosis, status post right carotid endarterectomy (LICA 50-69%)
- Acute systolic and diastolic heart failure with a EF of 25 to 30%
- Acute postop blood loss anemia- stable, no transfusion
- Acute postop atelectasis
- Acute postop hypovolemia with subsequent hypervolemia
- Acute postop hyponatremia
- Acute postop hypocalcemia with subsequent hypercalcemia
Discussed patient care with: Cardiology, Nursing, Respiratory Therapy, Pharmacy and Care Team
Subjective
Procedure
s/p Surgical aortic valve replacement [25 mm Higgins Inspiris Resilia bioprosthesis]; CABG x 2 (In situ WILSON to high diagonal sequential to LAD); Left atrial appendage exclusion [35 mm clip] by Dr. Foy on 01/27/25
-
Date of Service: January 31, 2025
Pt c/o mild incsional pain, otherwise feels well. Ambulating halls/stairs without difficulty
Objective Data
-
PT 17.7 Sec (11.4-14.6) H 01/27/25 16:26
INR 1.43 01/27/25 16:26
APTT 31.8 Sec (23.4-35.0) 01/27/25 16:26
Vital Signs
Vital Signs
Temp Pulse Resp BP Pulse Ox
98.7 F 70 15 102/54 95
01/31/25 00:03 01/31/25 02:00 01/31/25 00:03 01/31/25 00:03 01/31/25 02:01
CT Intake/Output/Weight
01/30/25 01/30/25 01/31/25
06:59 18:59 06:59
Intake Total 100 / 800 10 / 410 400 / 410
Output Total 200 / 560 400 / 400
Balance -100 / 240 -390 / 10 400 / 10
SaO2: 95 (RA)
Physical Exam
-
General: Awake, Oriented and AOx3
Cardiovascular: Regular rate & rhythm, No Murmurs, No Rub and No Gallop
Respiratory: Decreased Breath Sounds (at bases, otherwise clear)
Sternum: Stable
Incision: Clean, Dry, Intact and Dressing Intact
Extremities: Other (trace edema)
Data Reviewed
-
Lab Results: Results Reviewed
Medications: Active Meds Reviewed
Chest X-Ray: Report Reviewed and Image Reviewed
ECG: Report Reviewed and Image Reviewed
--- NOTE | 2025-01-31 04:50 | PTCARENOTE ---
labs drawn and sent. VS done.
[2025-01-31 05:15] LABS: Ionized Calcium 1.12 mMOL/L (1.15-1.33)
[2025-01-31 05:30] LABS: Hematocrit 21.7 % (39.0-52.0); Hemoglobin 7.5 g/dL (13.0-18.0); Mean Corp Hgb Conc. 34.6 g/dL (33.0-37.0); Mean Corpuscular Hgb 31.5 pg (27.0-31.0); Mean Corpuscular Volume 91.2 fL (80.0-94.0); Mean Platelet Volume 9.7 fL (7.4-10.4); Platelet Count 158 10^3/uL (130-400); Red Blood Cell Count 2.38 10^6/uL (4.70-6.10); Red Cell Dist. Width 12.8 % (11.5-14.5); White Blood Cell Count 9.6 10^3/uL (4.8-10.8)
[2025-01-31 05:51] LABS: Blood Urea Nitrogen 21 mg/dl (9-20); Calcium 8.4 mg/dl (8.4-10.2); Carbon Dioxide 28 mmol/L (22-30); Chloride 99 mmol/L (98-107); Estimated Creatinine Clearance > 125 ml/min; Glucose 102 mg/dl (70-99); Magnesium 2.3 mg/dl (1.6-2.3); Potassium 4.1 mmol/L (3.5-5.1); Sodium 132 mmol/L (135-145); eGFR > 60.00
[2025-01-31] MEDS: TYLENOL 1000 MG PO ×2 (07:10→14:04)
--- NOTE | 2025-01-31 07:43 | PTCARENOTE ---
Patient received from security shift manager resting in bed, AAO X 3, states pain controlled at this time. NSR via cm, Sao2 @ 94% on RA. PIV x 2, flushed and patent. All procedural sites stable. Patient assisted oob to chair, breakfast ordered. Patient updated
to plan of care for the day, in agreement. See work list for full assessment and interventions performed.
[2025-01-31] MEDS: ZESTRIL 2.5 MG PO (07:53)
[2025-01-31] MEDS: PROTONIX 40 MG PO (07:53)
[2025-01-31] MEDS: CRESTOR 40 MG PO (07:53)
[2025-01-31] MEDS: LOW STRENGTH ASPIRIN 81 MG PO (07:53)
[2025-01-31] MEDS: TOPROL XL 25 MG PO ×2 (07:53→20:30)
[2025-01-31] MEDS: PACERONE 200 MG PO (07:53)
[2025-01-31] MEDS: MAGNESIUM OXIDE 500 MG PO ×2 (07:53→20:33)
[2025-01-31] MEDS: PLAVIX 75 MG PO (07:53)
[2025-01-31] MEDS: NEURONTIN 100 MG PO ×2 (07:53→16:05)
[2025-01-31] MEDS: BACTROBAN 2% OINTMENT 1 APPLIC NASAL (07:53)
[2025-01-31] MEDS: SENOKOT-S PO (07:54)
[2025-01-31] MEDS: NSS IV (10:23)
[2025-01-31] MEDS: LASIX 40 MG IV (10:51)
[2025-01-31] MEDS: CALCIUM GLUCONATE 130 MG IV (10:51)
--- NOTE | 2025-01-31 11:35 | PTCARENOTE ---
VS obtained, assessment stable. Patient resting oob, bedside. Denies pain. Unit prbc transfused, patient tolerated well.
--- NOTE | 2025-01-31 15:07 | W.PN.CARDCBS ---
Addendum entered and electronically signed by Jasiel Canas MD 01/31/25 17:53:
Attending addendum: Patient seen and examined. PA note reviewed and findings confirmed by me. I reviewed telemetry strips. Looks a if he experienced a run of NSVT - monomorphic and shorter runs of what could be polymorphic NSVT. Repeated
echocardiogram with ef visually estimated around 40%. 25 mm Higgins Inspiris valve is functioning normally.
-I reviewed history at length with EP who will see and evaluate patient tomorrow and make additional recommendations.
-For now continue to monitor on telemetry
-s/p blood transfusion
-Await EP evaluation
Original Note:
Today's Communication / Plan
-
check stat EKG
urgent echo
follow rhythm
K/mag stable
diurese
continue post op care
Impression / Plan
-
PCP: Fani Mayen MD
CDY: Jimy Garza MD
Impression:
Admitted to [facility] with near syncope and hypotension 01/22/25
Transferred to for cardiac cath 01/23/25
Nonischemic myocardial injury with troponin elevation due to severe , peak Troponin at [facility] 4646 (equivalent to 46 on assay)
Severe progressive symptomatic aortic stenosis
Status post 25 mm bioprosthetic AVR 01/27/2025
CAD
Status post CABG x 2 with sequential WILSON to LAD and diagonal 01/27/2025
s/p LAD PCI w/2 overlapping DONNELL at 07/06/24
Status post left atrial appendage clip 35 mm 01/27/2025
LBBB
New nonischemic cardiomyopathy EF 25-30%
Trileaflet, but functionally bicuspid AV with moderate peak/mean 56.7/33.3 mmHg and CHIDI 0.78 cm sq by echo at [facility] 12/05/24
Carotid disease, s/p R CEA (2017), LICS 50-70%
HTN
HLD
Echo 12/05/24: [facility] study, EF 55 to 60%, calcified anatomically trileaflet but functionally bicuspid AV with moderate peak/mean 56.7/33.3 mmHg and CHIDI 0.78 cm sq, mild MR
Echo 01/24/25: EF 40%, global hypokinesis with akinesis of the distal anterior wall, mild to moderate MR, severe aortic stenosis peak/mean 52/33 mmHg with CHIDI 0.7 cm sq
Cardiac catheterization 01/23/2025: LM: Normal. LAD: Patent overlapping [place] DONNELL mid LAD, diagonal with 60% mid stenosis. Left circumflex: Patent. RCA: Proximal 40% stenosis, 40% distal stenosis. PDA proximal 40% stenosis LV% with
anterolateral and apical hypokinesis. -LVEDP 25, no evidence of acute HF
Intra/postop JOVANA 01/27/2025: EF 40% with mildly reduced LV function. Status post 25 mm bioprosthetic AVR well-seated with no perivalvular leak, mean gradient 10
PLAN:
-Status post 25 mm bioprosthetic AVR, CABG x 2 with sequential WILSON to LAD and diagonal and left atrial appendage clip 35 mm 01/27/2025
-hgb 7.5. received 1 U PRBCs today with 40mg IV lasix to follow
-CXR this AM with evidence of B/L pleural effusions would plan for IV lasix again in AM. Cr stable at 0.6.
-he has known LBBB. today on tele noted to have brief run of what appears to be torsades, reviewed with EP. patient asymptomatic. check stat EKG. if prolonged, hold amiodarone.
-K/mag stable
-check urgent echo
-continue asa, plavix, crestor
-EF 40% by post op JOVANA. continue toprol, lisinopril. consider aldactone and SGLT2 inhibitor as BP allows
-continue post op care
-would observe overnight
-d/w nursing, CT POWERHOUSE MECHANIC APPRENTICE, patient and at bedside
HPI: 64 y/o white male, PMH sig for CAD, recent LAD PCI w/2 overlapping DONNELL (07/06/24), LBBB, moderate , taking DAPT w/asa, plavix.
Presented to [facility] ER after exertional chest pain on exercise bike. He felt like he was going to pass out, laid down on a bed and called 911. He was hypotensive and ashen. CXR was suspected to be pulmonary edema. HS troponin at 4646, CPK 4961, MB
600 and still trending. Echo this morning with mod-severe LVS dysfunction, EF 25-30%, anteroseptal HK, mod-sev (PG/MG 58.5/37.2, CHIDI 0.8cm2). This is worse than echo 12/05/24 where EF was 55-60%, no WMA and mod (PG/MG 56.7/33.3, CHIDI 0.78cm2).
He was started on heparin and transferred today for [facility].
Progress Note - Hot Worker
Subjective
Date of Service: January 31, 2025
denies CP, SOB, lightheadedness.
Objective
Labs:
01/31/25 05:07
01/31/25 05:07
Labs
Hgb 7.5 g/dL (13.0-18.0) L 01/31/25 05:07
Hct 21.7 % (39.0-52.0) L 01/31/25 05:07
Plt Count 158 10^3/uL (130-400) 01/31/25 05:07
PT 17.7 Sec (11.4-14.6) H 01/27/25 16:26
INR 1.43 01/27/25 16:26
APTT 31.8 Sec (23.4-35.0) 01/27/25 16:26
Sodium 132 mmol/L (135-145) L 01/31/25 05:07
Potassium 4.1 mmol/L (3.5-5.1) 01/31/25 05:07
BUN 21 mg/dl (9-20) H 01/31/25 05:07
Creatinine 0.6 mg/dL (0.7-1.3) L 01/31/25 05:07
Glucose 102 mg/dl (70-99) H 01/31/25 05:07
Vital Signs and I&O:
Vital Signs
Temp Pulse Resp BP Pulse Ox
98.1 F 74 17 133/70 96
01/31/25 11:21 01/31/25 14:00 01/31/25 11:21 01/31/25 11:16 01/31/25 11:21
Vital Signs
Temp Pulse Resp BP Pulse Ox
98.1 F 74 17 133/70 96
01/31/25 11:21 01/31/25 14:00 01/31/25 11:21 01/31/25 11:16 01/31/25 11:21
Intake & Output
01/29/25 01/30/25 01/31/25 02/01/25
07:59 07:59 07:59 07:59
Intake Total 800 / 810 410 / 660 250 / 250
Output Total 560 / 960 400 / 400 925 / 925
Balance 240 / -150 10 / 260 -675 / -675
Physical Exam
Physical Exam
GEN: No distress, awake, alert, oriented x3
HEENT: supple, anicteric, mmm, eomi
LUNGS: CTA B/L, no wheezes/rales
CV: Reg, S1/S2, no murmur
ABD: soft, BS+, NT/ND
EXT: No cyanosis, clubbing, edema
NEURO: Gross non-focal
SKIN: Warm, pink, dry. No rash. Sternotomy dressing c/d/i.
--- NOTE | 2025-01-31 16:13 | PTCARENOTE ---
VS obtained, assessment stable. Patient ambulating ad jevon, in room. Denies pain.
--- NOTE | 2025-01-31 19:58 | W.PN.UPDATE ---
Update Note
Progress Note Update
Code 9 note:
At 1930, patient displayed polymorphic VT on telemetry. Patient was sitting in chair and lost consciousness with event. Oxygen via [id number]. Defibrillator pads applied and patient received defibrillation x 3 with 200 J, followed by 1 mg of
epinephrine. Patient regained consciousness and was assisted to bed. SVT occurred again and patient received 100 mg of lidocaine followed by lidocaine drip at 2 mg/min. Dr. BEBO Mckinney in attendance during the code. Drs. Vences (warp tension tester) and
Danii (surgeon of record) notified of event. Patient n.p.o. after midnight for EP evaluation in the morning with Dr. Garg. See Code record for further detail.
--- NOTE | 2025-01-31 20:24 | PTCARENOTE ---
pt went into V tach on tele-monitor at 1930. pt lost consciousness while sitting in chair. Code 9 called. see Code 9 record on chart for full details. pt resting comfortably in bed w/ family at bedside at this time.
[2025-01-31 20:28] LABS: Hematocrit 24.2 % (39.0-52.0); Hemoglobin 8.5 g/dL (13.0-18.0); Ionized Calcium 1.12 mMOL/L (1.15-1.33); Mean Corp Hgb Conc. 35.1 g/dL (33.0-37.0); Mean Corpuscular Volume 88.3 fL (80.0-94.0); Mean Platelet Volume 9.5 fL (7.4-10.4); Platelet Count 192 10^3/uL (130-400); Red Blood Cell Count 2.74 10^6/uL (4.70-6.10); Red Cell Dist. Width 14.5 % (11.5-14.5); White Blood Cell Count 9.5 10^3/uL (4.8-10.8)
[2025-01-31] MEDS: SENOKOT-S 1 TABLET PO (20:33)
[2025-01-31 20:35] LABS: ALT (SGPT) 41 U/L (0-50); AST (SGOT) 59 U/L (17-59); Albumin 2.9 g/dl (3.5-5.0); Alkaline Phosphatase 60 U/L (38-126); Blood Urea Nitrogen 20 mg/dl (9-20); Calcium 8.5 mg/dl (8.4-10.2); Carbon Dioxide 25 mmol/L (22-30); Chloride 98 mmol/L (98-107); Estimated Creatinine Clearance 110 ml/min; Glucose 174 mg/dl (70-99); Magnesium 2.1 mg/dl (1.6-2.3); Potassium 3.3 mmol/L (3.5-5.1); Sodium 130 mmol/L (135-145); Total Bilirubin 0.5 mg/dl (0.2-1.3); eGFR > 60.00
[2025-01-31] MEDS: CALCIUM GLUCONATE 100 IV (20:49)
[2025-01-31 20:53] LABS: Troponin I 0.952 ng/ml
[2025-01-31] MEDS: XYLOCAINE 2 GRAM 500 IV (21:00)
--- NOTE | 2025-01-31 21:00 | PTCARENOTE ---
pt resting comfortably in bed w/ at bedside. pt A&Ox4, no c/o pain at time of assessment. SR w/ LBBB on tele-monitor, HR 70s. POX 96-98% on 6 L NC. pt w/ occasional, dry cough. abd s/n, +BS. MSI approximated w/ surgi-glue, TESTER OPERATOR. PIV x3 intact.
Lidocaine gtt infusing per order. see worklist for complete nursing assessment, interventions, VS and I&Os.
[2025-01-31] MEDS: MAGNESIUM SULFATE 50 IV (21:10)
[2025-01-31] MEDS: KCL 270 MEQ IV (21:11)
[2025-01-31] MEDS: TYLENOL PO (22:51)
[2025-01-31] MEDS: NEURONTIN PO (22:51)
[2025-02-01] VITALS (24 sets, daily range): BP systolic 100–133; BP diastolic 57–81; BMI 28.1
--- NOTE | 2025-02-01 00:15 | PTCARENOTE ---
assessment remains unchanged. VSS. Lido gtt infusing per order. POX 98% on 6 L NC. no c/o pain at this time.
--- NOTE | 2025-02-01 03:45 | PTCARENOTE ---
no acute changes. AM labs collected and sent. EKG completed. pt NPO since 0000.
[2025-02-01 03:55] LABS: Ionized Calcium 1.11 mMOL/L (1.15-1.33)
[2025-02-01 03:57] LABS: Hematocrit 24.4 % (39.0-52.0); Hemoglobin 8.3 g/dL (13.0-18.0); Mean Corpuscular Hgb 30.3 pg (27.0-31.0); Mean Corpuscular Volume 89.1 fL (80.0-94.0); Mean Platelet Volume 9.4 fL (7.4-10.4); Platelet Count 190 10^3/uL (130-400); Red Blood Cell Count 2.74 10^6/uL (4.70-6.10); Red Cell Dist. Width 14.3 % (11.5-14.5); White Blood Cell Count 8.5 10^3/uL (4.8-10.8)
[2025-02-01 04:26] LABS: Blood Urea Nitrogen 18 mg/dl (9-20); Calcium 8.4 mg/dl (8.4-10.2); Carbon Dioxide 26 mmol/L (22-30); Chloride 98 mmol/L (98-107); Estimated Creatinine Clearance 110 ml/min; Glucose 109 mg/dl (70-99); Magnesium 2.3 mg/dl (1.6-2.3); Potassium 4.1 mmol/L (3.5-5.1); Sodium 132 mmol/L (135-145); eGFR > 60.00
[2025-02-01] MEDS: TYLENOL PO (04:30)
[2025-02-01 05:03] LABS: Troponin I 0.812 ng/ml
--- NOTE | 2025-02-01 05:08 | W.PN.CT ---
Today's Communication / Plan
-
-pod #5
-cardiac arrest last night d/t polymorphic VT, got 3 shocks, Epi, and started on Lidocaine drip. Didn't require any chest compressions
-few more short episodes of polymorphic VT last night and brief polymorphic VT this am - resolved spontaneously without any tx.
-drips: Lidocaine 2 mg/min
-NPO for Cath today, followed by ICD placement
-follow Qtc (holding Amio for long Qtc)
-has pre-existing LBBB
Assessment / Plan
-
- Aortic valve stenosis with acute coronary syndrome- s/p Surgical aortic valve replacement [25 mm Higgins Inspiris Resilia bioprosthesis]; CABG x 2 (In situ WILSON to high diagonal sequential to LAD); Left atrial appendage exclusion [35 mm clip] by
Dr. Foy on 01/27/25, pod #5
- Intraop JOVANA: LVEF on intraoperative JOVANA was 40% and 40% post procedure. There was some mild anterior apical akinesis on preoperative JOVANA and a significantly elevated pulmonary pressures to the 60s. Following surgery his EF did initially improved
to approximately 60% and later settled to 45%. The regional wall motion abnormality did appear to improve. There was bruising around the high diagonal territory that was concerning for an AL. His left atrial appendage was verified to be free of
any thrombus or debris preoperatively and found to be totally occlusive postoperatively with 35mm clip. There was a small residual stump. There was no prosthetic PVL or AI. Mean gradient across the prosthesis was 10 mmHg initially while he was
hyperdynamic coming off pump.
- Severe aortic valve stenosis [bicuspid morphology, type II]
- Single-vessel coronary artery disease, s/p LAD DONNELL x2 07/06/24, on DAPT
- Pre-existing LBBB
- Hypertension
- Hyperlipidemia
- Bilateral carotid stenosis, status post right carotid endarterectomy (LICA 50-69%)
- Acute systolic and diastolic heart failure with a EF of 25 to 30%
- Acute postop blood loss anemia- stable, no transfusion
- Acute postop atelectasis
- Acute postop hypovolemia with subsequent hypervolemia
- Acute postop hyponatremia
- Acute postop hypocalcemia with subsequent hypercalcemia
- Cardiac arrest on 01/31 d/t sustained polymorphic VT - required 3 shocks, 1 Epi, Lidocaine bolus and drip
Discussed patient care with: Nursing and Care Team
Subjective
Procedure
s/p Surgical aortic valve replacement [25 mm Higgins Inspiris Resilia bioprosthesis]; CABG x 2 (In situ WILSON to high diagonal sequential to LAD); Left atrial appendage exclusion [35 mm clip] by Dr. Foy on 01/27/25
-
Date of Service: February 01, 2025
Objective Data
-
Lab Results
02/01/25 03:44
02/01/25 03:44
PT 17.7 Sec (11.4-14.6) H 01/27/25 16:26
INR 1.43 01/27/25 16:26
APTT 31.8 Sec (23.4-35.0) 01/27/25 16:26
Vital Signs
Vital Signs
Temp Pulse Resp BP Pulse Ox
98.5 F 71 20 115/57 98
02/01/25 00:00 02/01/25 04:15 02/01/25 04:15 02/01/25 04:00 02/01/25 04:15
CT Intake/Output/Weight
01/31/25 01/31/25 02/01/25
06:59 18:59 06:59
Intake Total 400 / 410 500 / 770 270 / 770
Output Total 925 / 1225 300 / 1225
Balance 400 / 10 -425 / -455 -30 / -455
SaO2: 98
Physical Exam
-
General: Awake and AOx3
Cardiovascular: Regular rate & rhythm, No Murmurs and No Rub
Respiratory: Clear
Sternum: Stable
Incision: Clean, Dry and Intact
Extremities: No Edema
Abdomen: soft, nontender, nondistended, + bowel sounds
Data Reviewed
-
Lab Results: Results Reviewed
Medications: Active Meds Reviewed
Chest X-Ray: Report Reviewed and Image Reviewed
ECG: Report Reviewed and Image Reviewed
[2025-02-01] MEDS: CALCIUM GLUCONATE 100 IV (05:41)
[2025-02-01] MEDS: XYLOCAINE BOLUS 100 MG 50 MG IV (07:32)
[2025-02-01] MEDS: PLAVIX 75 MG PO (08:16)
[2025-02-01] MEDS: TOPROL XL 25 MG PO ×2 (08:17→20:22)
[2025-02-01] MEDS: LOW STRENGTH ASPIRIN 81 MG PO (08:17)
--- NOTE | 2025-02-01 08:24 | W.PN.CARDCBS ---
Today's Communication / Plan
-
NPO pending [facility] and device implant
Further recommendations to follow device
Impression / Plan
-
PCP: Fani Mayen MD
CDY: Jimy Garza MD
Impression:
Polymorphic VT with LOC, SCD
- defib x3 (appeared polymorphic on telemetry)
- Amiodarone held 01/31 AM; lidocaine gtt started
Admitted to [facility] with near syncope and hypotension 01/22/25
Transferred to for cardiac cath 01/23/25
Nonischemic myocardial injury with troponin elevation due to severe , peak Troponin at [facility] 4646 (equivalent to 46 on assay)
Severe progressive symptomatic aortic stenosis
Status post 25 mm bioprosthetic AVR 01/27/2025
CAD
Status post CABG x 2 with sequential WILSON to LAD and diagonal 01/27/2025
s/p LAD PCI w/2 overlapping DONNELL at 07/06/24
Status post left atrial appendage clip 35 mm 01/27/2025
LBBB
New nonischemic cardiomyopathy EF 25-30%
Trileaflet, but functionally bicuspid AV with moderate peak/mean 56.7/33.3 mmHg and CHIDI 0.78 cm sq by echo at [facility] 12/05/24
Carotid disease, s/p R CEA (2017), LICS 50-70%
HTN
HLD
Echo 12/05/24: [facility] study, EF 55 to 60%, calcified anatomically trileaflet but functionally bicuspid AV with moderate peak/mean 56.7/33.3 mmHg and CHIDI 0.78 cm sq, mild MR
Echo 01/24/25: EF 40%, global hypokinesis with akinesis of the distal anterior wall, mild to moderate MR, severe aortic stenosis peak/mean 52/33 mmHg with CHIDI 0.7 cm sq
Echo 01/31/25: EF 40% global hypokinesis (46% simpsons), mild RV dilation, mild to mod MR, #25 lawson Inspiris Resilia valve mean gradient 14 mmHg
Cardiac catheterization 01/23/2025: LM: Normal. LAD: Patent overlapping Ziggy DONNELL mid LAD, diagonal with 60% mid stenosis. Left circumflex: Patent. RCA: Proximal 40% stenosis, 40% distal stenosis. PDA proximal 40% stenosis LV% with
anterolateral and apical hypokinesis. -LVEDP 25, no evidence of acute HF
Intra/postop JOVANA 01/27/2025: EF 40% with mildly reduced LV function. Status post 25 mm bioprosthetic AVR well-seated with no perivalvular leak, mean gradient 10
PLAN:
-s/p VT/VF arrest overnight with defib x3; current SR with LBBB; NPO pending repeat LHC in AM and device implant (see communication)
-Status post 25 mm bioprosthetic AVR, CABG x 2 with sequential WILSON to LAD and diagonal and left atrial appendage clip 35 mm 01/27/2025
-hgb 7.5. received 1 U PRBCs 01/31 with 40mg IV lasix to follow
-CXR 01/31 with evidence of B/L pleural effusions would plan for IV lasix again in AM. Cr stable at 0.6.
-continue asa, plavix, crestor
-EF 40% by post op JOVANA. continue toprol, lisinopril. consider aldactone and SGLT2 inhibitor as BP allows
-continue post op care
-d/w nursing, [facility], Dr Bryant, patient and at bedside
HPI: 64 y/o white male, PMH sig for CAD, recent LAD PCI w/2 overlapping DONNELL (07/06/24), LBBB, moderate , taking DAPT w/asa, plavix.
Presented to [facility] ER after exertional chest pain on exercise bike. He felt like he was going to pass out, laid down on a bed and called 911. He was hypotensive and ashen. CXR was suspected to be pulmonary edema. HS troponin at 4646, CPK 4961, MB
600 and still trending. Echo this morning with mod-severe LVS dysfunction, EF 25-30%, anteroseptal HK, mod-sev (PG/MG 58.5/37.2, CHIDI 0.8cm2). This is worse than echo 12/05/24 where EF was 55-60%, no WMA and mod (PG/MG 56.7/33.3, CHIDI 0.78cm2).
He was started on heparin and transferred today for [facility].
In discussion with patient and his , we reviewed indications for device implantation. We discussed ICD indications for primary prevention and secondary prevention patients including 5 year sudden risk. We also discussed implant procedure
in detail including an approximate 1:1000 risk of MN/stroke/ and a 1% risk of pneumothorax/tamponade/infection/bleeding. We discussed the less than 1% risk of wires bending, breaking, or tearing through the lifetime of the device requiring
surgery or procedure to fix. We discussed the less than 1% risk of device/lead advisory or recall and requirement for monitoring for surveillance. We also discussed post procedure implant restrictions including positions to avoid with implant arm
for first six weeks after implant as well as driving restrictions. We discussed post implant possibility of inappropriate shocks from device and programming strategies to minimize this risk. Specifically for cardiac resynchronization we discussed
that 2/3 of patients can see an improvement in symptoms or EF% and that 95% of patients can get an endocardial lead at time of implant. Patients with left bundle branch block with wide QRS typically do best with implant with a minimum QRS duration
of 120msec considered for implant. In fact for patients with prior RBBB, INCOME TAX CONSULTANT may be harmful. Prior cardiac surgery can reduce the chance of usable anatomy in which case an epicardial lead placement can be considered. We also discussed the
possibility of utilizing the conduction system pacing lead in order to access the left bundle branch area in order to improve cardiac function and possible resynchronization. I took time to answer all questions. In the setting of patient with
sudden cardiac /sustained VT requiring defibrillation (secondary prevention), left bundle branch block EF less than 50%, a QRS duration greater than or equal to 150 ms and NYHA II�III heart failure symptoms, will recommend that he undergo
implant of CRTD system (BIV pacing) with either CS or conduction system pacing. Consent obtained, patient remains NPO.
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
Subjective
Date of Service: February 01, 2025
Patient seen and examined. Overnight, polymorphic VT with LOC, defib x 3 wtih epi x1. Patient regained consciousness and assisted to bed per documentation. Lidocaine gtt started, no further sustained VT events. Currently resting comfortably, no cp,
sob, palpitations, or weakness.
Objective
Labs:
02/01/25 03:44
02/01/25 03:44
Labs
Hgb 8.3 g/dL (13.0-18.0) L 02/01/25 03:44
Hct 24.4 % (39.0-52.0) L 02/01/25 03:44
Plt Count 190 10^3/uL (130-400) 02/01/25 03:44
PT 17.7 Sec (11.4-14.6) H 01/27/25 16:26
INR 1.43 01/27/25 16:26
APTT 31.8 Sec (23.4-35.0) 01/27/25 16:26
Sodium 132 mmol/L (135-145) L 02/01/25 03:44
Potassium 4.1 mmol/L (3.5-5.1) 02/01/25 03:44
BUN 18 mg/dl (9-20) 02/01/25 03:44
Creatinine 0.7 mg/dL (0.7-1.3) 02/01/25 03:44
Glucose 109 mg/dl (70-99) H 02/01/25 03:44
Troponins
01/31/25 01/31/25 02/01/25
20:00 20:11 03:44
Troponin I Cancelled 0.952 H* 0.812 H*
Vital Signs and I&O:
Vital Signs
Temp Pulse Resp BP Pulse Ox
98.5 F 75 22 115/66 95
02/01/25 00:00 02/01/25 07:40 02/01/25 07:40 02/01/25 07:40 02/01/25 07:40
Vital Signs
Temp Pulse Resp BP Pulse Ox
98.5 F 75 22 115/66 95
02/01/25 00:00 02/01/25 07:40 02/01/25 07:40 02/01/25 07:40 02/01/25 07:40
Intake & Output
01/30/25 01/31/25 02/01/25 02/02/25
06:59 06:59 06:59 06:59
Intake Total 800 / 800 410 / 410 770 / 770
Output Total 560 / 560 400 / 400 1225 / 1225 500 / 500
Balance 240 / 240 -455 / -455 -500 / -500
Physical Exam
Physical Exam
GEN: No distress, awake, alert, oriented x3
HEENT: supple, anicteric, mmm, eomi
LUNGS: CTA B/L, no wheezes/rales
CV: Reg, S1/S2, no murmur
ABD: soft, BS+, NT/ND
EXT: No cyanosis, clubbing, edema
NEURO: Gross non-focal
SKIN: Warm, pink, dry. No rash. Sternotomy dressing c/d/i.
--- NOTE | 2025-02-01 08:30 | PTCARENOTE ---
pt received from previous RN, oriented, in bed. SR w/ LBBB on the monitor, pt had a run of VT at change of shift, did not lose consciousness. SBP 130s. ANALYTICS INTERN at bedside, pt remains connected to [place]. Lidocaine gtt running as ordered. pt on 4LNC,
94-98% POX. pt NPO for CCL. +BS. voids. sternal incision ELECTRICIAN RECTIFIER MAINTENANCE, approximated. chest tube site c/d/i. PIV x3. VAT called for new IV for CCL. pt washed w/ CHG wipes. report given to CCL RN.
[2025-02-01] MEDS: ZESTRIL 2.5 MG PO (08:32)
--- NOTE | 2025-02-01 08:43 | ITS.CL.CATH ---
Exterior Designer - Catheterization
Cardiac Catheterization
Procedure Report:
LEFT HEART CATHETERIZATION
Date of Procedure: February 01, 2025
Procedures performed:
1: Coronary angiography
2: Left internal mammary artery angiography
Primary Care Physician: Dr. Ros Parker
Primary Explosive Operator Grenade: Dr. Jimy Garza
INDICATION: The patient is a 64-year-old man with a complex past medical history. He has a past medical history of coronary artery disease status post LAD stenting in June of last year. He underwent SAVR with WILSON to LAD jumped to the diagonal
branch on January 27 after presenting with another episode of near syncope or syncope after riding a stationary bike. He has done well in the postoperative period until developing ventricular tachycardia several times yesterday. He required
defibrillation last night and was started on lidocaine. In light of his new electrical instability he is being referred for repeat coronary angiography to confirm there is no new coronary or bypass graft problem. In between these episodes he is
denying any chest pain and has no typical angina.
ACCESS: The patient was prepped and draped in usual sterile fashion. A 6 Macedonian sheath was placed in the left radial artery using the Seldinger over the wire technique.
HEMODYNAMIC FINDINGS (mmHg):
LV(s/d,EDP): Valve not crossed
Ao(s/d,m): 105/61, 79
ANGIOGRAPHIC FINDINGS:
Single-plane Left Ventriculography in GONZALES Projection: Valve not crossed.
Coronary Angiography:
Dominance: Right
Left Main: Normal
Left Anterior Descending: The LAD is a large-caliber vessel that gives rise to 1 major diagonal branch. Both the diagonal and the distal LAD are bypassed and have competitive flow from the patent WILSON graft. The overlapping mid LAD stents are
widely patent with no significant in-stent restenosis. The major diagonal branch has a smooth 60% stenosis before the WILSON touchdown. This appears unchanged from prior angiography.
Left Circumflex: The circumflex is a medium caliber nondominant vessel. A very small caliber OM1 has preocclusive ostial stenosis which is unchanged from prior angiography. The distal circumflex gives rise to a large second obtuse marginal branch
small third obtuse marginal branch and terminates distally and a left-sided posterior left ventricular branch. These vessels are all widely patent and unchanged from prior angiography.
Right Coronary: The right coronary artery has a vertical anterior takeoff. There is a smooth proximal 30 to 40% stenosis. The remainder the vessel as only mild luminal irregularities and gives rise to a relatively large caliber posterior
descending artery that has normal flow. No change from prior angiography.
WILSON to diagonal sequential to apical LAD: The graft itself is widely patent with normal flow into both the diagonal and the distal LAD. The [id number] anastomosis to the diagonal appears widely patent as does the end to side anastomosis to the
LAD. Brisk competitive flow is noted in both vessels from the pit river circulation. There is a smooth 60% narrowing in the distal portion of the WILSON graft just before the end to side anastomosis in the diagonal. Some pulsatility with flow is
appreciated with an appearance more typical of a myocardial bridge. Despite this there is no clear evidence of flow-limiting disease or dissection in multiple views.
Fluoroscopy Time (min): 6.7
Radiation Dose (mGy): 566
DAP (Gy.cm2): 41
Closure device: None. A TR band was applied for hemostasis at the left wrist.
Complications: None.
ASSESSMENT:
1: Unchanged negative left and right circulation with notable continued patency of the previously placed overlapping mid LAD stents.
2: Patent WILSON to diagonal sequential to LAD.
CONCLUSIONS and RECOMMENDATIONS:
1: Proceed with placement of TACK PICKER-D device with Dr. Cotter.
2: Routine postop AVR/CABG medical therapy and monitoring.
3: Findings discussed with Cyndee Sneed, and Greg.
Gurmeet Bryant M.D.
[2025-02-01 08:51] LABS: B.E. - POC 0.6 mmol/L; Blood Urea Nitrogen - POC 15 mg/dl (3-120); Chloride - POC 107 mmol/L (96-111); Creatinine - POC 0.85 mg/dl (0.3-1.0); Glucose - POC 119 mg/dl (70-99); HCO3 - POC 25 mmol/L (21-28); Hematocrit - POC 32 % PCV (42-52); Hemodilution- POC Yes; Hemoglobin Calculated - POC 10.8; Ionized Calcium - POC 1.34 mmol/L (1.15-1.33); Lactate - POC 1.37 mmol/L (0.36-0.75); O2 Saturation %Calculated-POC 95.6 % (94-98); PCO2 - POC 39 mmHg (35-48); PO2 - POC 77 mmHg (83-108); Potassium - POC 4.7 mmol/L (3.5-5.1); Sodium - POC 142 mmol/L (136-145); Specimen Type - POC Arterial; pH - POC 7.42 (7.35-7.45)
--- NOTE | 2025-02-01 09:55 | ITS.CL.ICD ---
Ship Pilot - ICD
Implantable Cardioverter Defibrillator
Procedure Report:
Primary Physician: Fani Mayen MD
Primary Circle Shear Operator: Valentin Garza MD
Procedure Date: 02/01/2025
Procedure:
1: Implantation of SPOOL SORTER-D utilizing LBBAP pacing lead for conduction system pacing
2: Subclavian venography
Indication/Diagnosis:
1. LBBB with baseline QRS > 150 msec
2. CHF - NYHA class II-III
3. LVEF < 50% (LVEF 40%)
4. Sudden cardiac with sustained VT requiring defibrillation >24h post revascularization
HISTORY: Please see H&P/Hospital record for full details.
After informed consent was obtained, the patient was brought to the EP laboratory in a postabsorptive, nonsedated state. Peripheral IV access was established. Prophylactic antibiotics were administered prior to incision. Continuous ECG, blood
pressure, and pulse oximetry were initiated. Cardioversion patch electrodes were placed on the patient's chest and back. A grounding patch was applied to the skin. Sedation was administered by anesthesia.
In order to define the extrathoracic portion of the subclavian vein and exclude significant venous obstruction or anomalous anatomy, subclavian venography was performed prior to the procedure. Using the patient's peripheral IV, contrast was
injected and images were recorded. The left subclavian vein and SVC were found to be widely patent.
The left chest was prepared and draped in a sterile fashion. A 'time out' was called and confirmed. Local anesthesia was injected in the subcutaneous tissue in the infraclavicular area. An incision was made medial to the deltopectoral groove and
parallel to the clavicle. The subcutaneous tissue was dissected the level of the prepectoral fascia. A subcutaneous pocket was created. Under fluoroscopic guidance and with the assistance of the images from the venogram, three separate
venipunctures were made using micropuncture and modified Seldinger technique. These was performed in the extrathoracic portion of the subclavian vein. Guidewires were passed. Peel-away sheaths were placed for the conduction system and RV ICD
leads, and were used to advance the leads into the circulation.
Using fluoroscopic guidance, the leads were positioned. The RV lead was advanced to the RV outflow tract. Ventricular ectopy was recorded. Images were taken in GONZALES and TELUGU views to ensure appropriate lead placement. The lead tip was subsequently
positioned in the RV septal apex. Adequate sensing and pacing parameters were found, and no diaphragmatic stimulation was seen with high-output pacing.
Fluoroscopy was used to determine likely anatomic site for left bundle branch pacing. The [employer] C315 sheath was used to deliver the Medtronic 3830 Selectsecure pacing lead with the helix exposed just exposed from the sheath tip during continuous
monitoring when pacemapping the septum during gentle clockwise rotation to obtain a paced QRS morphology of a W pattern in lead V1. Once the suspected optimal site was identified, lead deployment was performed with several rapid rotations as paced
QRS morphology was intermittently monitored until a paced QRS complex in lead V1 demonstrated development of an R wave (qR or rSR). Unipolar pacing impedance dropped by approximately 100-200 ohms suggesting it had reached the left ventricular
subendocardial. Stable VEgm injury current is present throughout lead position and at end of case. Final unipolar pacing impedance is 950 Ohms. Unipolar pacing threshold is stable at 1.0 V @ 0.4 ms. The patient had pre-existing left bundle branch
block at baseline. Final conduction system paced QRS complex duration is 106 ms, LVAT is 78 ms, and peak V5 -> peak V1 timing is 47 ms. The C315 sheath was slit under fluoroscopy ensuring lead position and stability. The left bundle branch area
pacing lead and the RV ICD lead were sutured in place.
Next, a peel-away sheath was placed over the remaining wire, wire removed, and the right atrial lead was positioned in the right atrial appendage. Adequate sensing and pacing parameters were found, and no diaphragmatic stimulation was seen with
high-output pacing. The sheath was split, and the lead were secured to the fascia with Ethibond ties.
The pocket was flushed with antibiotic solution and hemostasis was assured. The generator was connected to the leads and placed inside the pocket and sutured in place. Antibiotic envelope was used. Floseal was applied. The wound was closed with 3
running layers of absorbable suture, and steri-strips were applied. Defibrillator function testing was deferred.
Fluoroscopy was used to guide lead placement, see synapse/record for details and saved images.
Following the procedure, the patient was taken to the recovery area in stable condition. A chest x-ray to be obtained in patient room.
IMPLANTS:
Device: Medtronic Model POTX2J7, SN: [id number]
RA: Medtronic, Model 5076, SN: [id number], right atrial appendage
RV ICD: Medtronic, Model 6935 M62, SN: [id number], apical RV septum
RV LBBAP: Medtronic 3830, SN:[id number], Interventricular septum at LBB
DEVICE TESTING:
RA: Sensing 1.8 mV, Capture 1.0 V @0.4 msec, Impedance 400 ohms
RV (ICD lead): Sensing 16.0 mV, Capture 0.5 V 0.4 msec, Impedance 475 ohms
RV (LBBAP lead): Sensing 18.0 mV, Capture 0.6 V @0.4 msec, Impedance 920 ohms
FINAL PROGRAMMING
Marty Parameters: DDDR with lower rate 70 to 130 ppm; mode switch on
Tachy Parameters: Monitor 150�180, FVT 180-220 (iATP with shock), VF >220 (ATP with charging, defib)
COMPLICATIONS:
There were no complications.
CONCLUSIONS:
1: Successful implantation of secondary prevention SPOOL SORTER-D utilizing LBBAP pacing lead for conduction system pacing
RECOMMENDATIONS:
1. Post-op care (tele, CXR, IV abx)
2. In-Office wound check in 5-7 days
3. DC lidocaine gtt, start amiodarone load 400 mg PO TID
4. Uptitrate medical therapy as tolerated
Copy to: Fani Mayen MD; Valentin Garza MD; Alvaro Bryant MD; Pedro Foy MD
--- NOTE | 2025-02-01 13:45 | PTCARENOTE ---
pt received from CCL, oriented, in bed. 100% V-paced on the monitor, HR 70s. new LCW CIVIL DESIGN TECHNICIAN-D, DDDR 70-130. LUE in arm immobilizer. SBP 100s. palpable pulses. L radial TR band in place. pt on 6LNC, 90-91% POX. lungs diminished, +moist HAND GRINDER cough. IS
encouraged. pt abdomen s/n, denies n/v. sternal incision CAROLYN, approximated. LCW pressure dressing in place. Lidocaine gtt off per Dr. Cotter. PIV. no c/o pain. EKG completed. see worklist for VS, I&O, and assessment.
[2025-02-01] MEDS: CRESTOR 40 MG PO (13:47)
[2025-02-01] MEDS: TYLENOL 1000 MG PO ×2 (13:47→23:28)
[2025-02-01] MEDS: MAGNESIUM OXIDE 500 MG PO ×2 (13:47→20:22)
[2025-02-01] MEDS: PROTONIX 40 MG PO (13:47)
[2025-02-01] MEDS: NEURONTIN PO (13:49)
[2025-02-01] MEDS: SENOKOT-S PO (13:50)
[2025-02-01] MEDS: NSS IV (14:20)
[2025-02-01] MEDS: PACERONE 400 MG PO ×2 (15:29→20:22)
[2025-02-01] MEDS: NEURONTIN 100 MG PO ×2 (15:29→23:28)
[2025-02-01] MEDS: ANCEF 5 IV ×2 (15:30→23:28)
--- NOTE | 2025-02-01 16:00 | PTCARENOTE ---
pt VSS, OOB to chair w/ minimal assist. 100% V-paced w/ occasional PVCs. IS encouraged. LCW dressing intact.
--- NOTE | 2025-02-01 20:00 | PTCARENOTE ---
assumed care of pt from previous RN. pt A&Ox4, resting in chair at time of assessment. pt V-paced w/intermittent A/V pacing w/ PPM, occasional PVCs. POX 94% on RA. abd s/n, +BS. pt voiding clear, yellow urine in bathroom. all surgical sites stable,
CDI. new L chest wall PPM; L arm in sling. PIV x4 intact. see worklist for complete nursing assessment, interventions, VS, and I&Os.
[2025-02-01] MEDS: SENOKOT-S 1 TABLET PO (20:22)
[2025-02-01] MEDS: ROXICODONE 5 MG PO (23:28)
--- NOTE | 2025-02-01 23:45 | PTCARENOTE ---
assessment remains unchanged. VSS. pt assisted back to bed.
--- NOTE | 2025-02-02 04:01 | W.PN.CT ---
Today's Communication / Plan
-
-pod #1 s/p cath and bi-v icd implant; pod #6 s/p AVR/CABG x2
-no issues overnight
-looks and feels much better
-av-paced 70s overnight
-follow Qt- 558/602 on ECG (measured 520/562 ms)- on Amio 400 tid
-consider diuresis
-follow electrolytes closely
-current meds (ASA, Plavix, Crestor, Amio, Toprol, Zestril, Protonix)
-encourage IS, ambulate
-appreciate everyone's input
Assessment / Plan
-
- Aortic valve stenosis with acute coronary syndrome- s/p Surgical aortic valve replacement [25 mm Higgins Inspiris Resilia bioprosthesis]; CABG x 2 (In situ WILSON to high diagonal sequential to LAD); Left atrial appendage exclusion [35 mm clip] by
Dr. Foy on 01/27/25, pod #6
- s/p Cath 02/01/[address] Bryant with Patent WILSON to diagonal sequential to LAD. Unchanged negative left and right circulation with notable continued patency of the previously placed overlapping mid LAD stents, pod #1
- s/p implant of MDT bi-v ICD 02/01/[address] Garg, pod #1
- EF 40-45% (Echo 01/31/25)
- Severe aortic valve stenosis [bicuspid morphology, type II]
- Single-vessel coronary artery disease, s/p LAD DONNELL x2 07/06/24, on DAPT
- Pre-existing LBBB
- Hypertension
- Hyperlipidemia
- Bilateral carotid stenosis, status post right carotid endarterectomy (LICA 50-69%)
- Acute systolic and diastolic heart failure with a EF of 25 to 30%
- Acute postop blood loss anemia- stable, no transfusion
- Acute postop atelectasis
- Acute postop hypovolemia with subsequent hypervolemia
- Acute postop hyponatremia
- Acute postop hypocalcemia with subsequent hypercalcemia
- Cardiac arrest on 01/31 d/t sustained polymorphic VT - required 3 shocks, 1 Epi, Lidocaine bolus and drip
- Long Qt
Discussed patient care with: Nursing and Care Team
Subjective
Procedure
s/p Surgical aortic valve replacement [25 mm Higgins Inspiris Resilia bioprosthesis]; CABG x 2 (In situ WILSON to high diagonal sequential to LAD); Left atrial appendage exclusion [35 mm clip] by Dr. Foy on 01/27/25
-
Date of Service: February 02, 2025
Objective Data
-
Lab Results
02/02/25 06:00
PT 17.7 Sec (11.4-14.6) H 01/27/25 16:26
INR 1.43 01/27/25 16:26
APTT 31.8 Sec (23.4-35.0) 01/27/25 16:26
Vital Signs
Vital Signs
Temp Pulse Resp BP Pulse Ox
98.3 F 70 16 106/62 94
02/01/25 23:45 02/02/25 03:30 02/01/25 23:45 02/01/25 23:32 02/01/25 23:45
CT Intake/Output/Weight
02/01/25 02/01/25 02/02/25
06:59 18:59 06:59
Intake Total 270 / 770 30 / 30
Output Total 300 / 1225 1725 / 1925 200 / 1925
Balance -30 / -455 -1695 / -1895 -200 / -1895
SaO2: 94
Physical Exam
-
General: Awake and AOx3
Cardiovascular: Regular rate & rhythm, No Murmurs and No Rub
Respiratory: Clear
Sternum: Stable
Incision: Clean, Dry, Intact and Other (ICD incision with bulky dressing)
Extremities: Other (trace edema b/l)
Abdomen: soft, nontender, nondistended, + bowel sounds
Data Reviewed
-
Lab Results: Results Reviewed
Medications: Active Meds Reviewed
Chest X-Ray: Report Reviewed and Image Reviewed
ECG: Report Reviewed and Image Reviewed
[2025-02-02 04:06] VITALS: BP 103/61
--- NOTE | 2025-02-02 04:20 | PTCARENOTE ---
no acute changes. VSS. AM labs collected and sent. EKG completed. AM plan of care discussed w/ pt, pt in agreement.
[2025-02-02 04:32] LABS: Ionized Calcium 1.17 mMOL/L (1.15-1.33)
[2025-02-02 04:48] LABS: Hematocrit 23.7 % (39.0-52.0); Hemoglobin 8.1 g/dL (13.0-18.0); Mean Corp Hgb Conc. 34.2 g/dL (33.0-37.0); Mean Corpuscular Volume 90.8 fL (80.0-94.0); Mean Platelet Volume 9.2 fL (7.4-10.4); Platelet Count 226 10^3/uL (130-400); Red Blood Cell Count 2.61 10^6/uL (4.70-6.10); Red Cell Dist. Width 14.4 % (11.5-14.5); White Blood Cell Count 9.3 10^3/uL (4.8-10.8)
[2025-02-02 04:55] LABS: ALT (SGPT) 35 U/L (0-50); AST (SGOT) 33 U/L (17-59); Albumin 2.7 g/dl (3.5-5.0); Alkaline Phosphatase 58 U/L (38-126); Blood Urea Nitrogen 16 mg/dl (9-20); Calcium 8.5 mg/dl (8.4-10.2); Carbon Dioxide 27 mmol/L (22-30); Chloride 101 mmol/L (98-107); Estimated Creatinine Clearance 96 ml/min; Glucose 112 mg/dl (70-99); Magnesium 2.4 mg/dl (1.6-2.3); Potassium 4.6 mmol/L (3.5-5.1); Sodium 133 mmol/L (135-145); Total Bilirubin 0.5 mg/dl (0.2-1.3); Total Protein 4.7 g/dl (6.3-8.2); eGFR > 60.00
[2025-02-02 06:00] VITALS: BMI 27.3
[2025-02-02] MEDS: TYLENOL 1000 MG PO (06:16)
[2025-02-02 08:34] VITALS: BP 97/52
[2025-02-02] MEDS: CRESTOR 40 MG PO (08:42)
[2025-02-02] MEDS: LOW STRENGTH ASPIRIN 81 MG PO (08:42)
[2025-02-02] MEDS: TOPROL XL 25 MG PO (08:42)
[2025-02-02] MEDS: PROTONIX 40 MG PO (08:42)
[2025-02-02] MEDS: NEURONTIN 100 MG PO (08:42)
[2025-02-02] MEDS: PACERONE 400 MG PO (08:42)
[2025-02-02] MEDS: MAGNESIUM OXIDE 500 MG PO (08:42)
[2025-02-02] MEDS: PLAVIX 75 MG PO (08:42)
[2025-02-02] MEDS: SENOKOT-S PO (08:43)
--- NOTE | 2025-02-02 08:53 | PTCARENOTE ---
assumed care of pt from previous shift RN, AV paced on tele, VSS, + peripheral pulses, no edema. Pressure dressing and sling maintained to left CW PPM/ICD site. Lungs diminished, coughing and deep breathing encouraged. +bs, tolerating PO intake,
voids spontaneously. PIVs flush easily. Surgical sites stable. Pt denies pain. Plan of care reviewed w the pt and questions encouraged.
--- NOTE | 2025-02-02 09:12 | W.DCSUMMARY ---
Discharge Summary
Discharge Data
Date of Admission: 01/23/25
Date of Discharge: 02/02/25
Total time spent discharging patient (in min): 40
-
Pending Results: No
Hospital Course
Primary care physician:
Dr. Mayen
Outpatient logistics specialist:
Dr. Garza
Inpatient consultants:
health information technician, DCA, anesthesia
Procedures:
1. Coronary artery bypass grafting x 2 (In situ WILSON to high diagonal sequential to LAD) and Surgical aortic valve replacement [25 mm bioprosthesis]
Primary Diagnosis:
1. Aortic valve stenosis with acute coronary syndrome
Secondary Diagnoses:
1. Pre-existing left bundle branch block
2. Single-vessel coronary artery disease previous PCI
3. Hypertension
4. Hyperlipidemia
5. Bilateral carotid stenosis status post right carotid endarterectomy
6. Acute systolic and diastolic heart failure with a EF of 25 to 30%
7. Ventricular tachycardia
HPI: 64-year-old male with past medical history of hypertension, hyperlipidemia, bilateral carotid stenosis status post right CEA, CAD status post PCI to the LAD in June 2024, and known moderate bicuspid aortic stenosis who presented to
[place] after a near syncopal episode while riding his bike. Repeat echo at [place] this morning demonstrated a now reduced EF of 25 to 30% with moderate to severe , CHIDI 0.8 cm� and mean gradient of 37 mmHg. Troponins were elevated, ruling in
for non-STEMI. patient was transferred to [facility] for CT surgery evaluation.
Hospital course:
Patient was transferred to [facility] on 01/23 after being admitted to [facility] on 01/22 for near syncope while riding his bike. He was found to have an elevated troponin and ruled in for non-STEMI. On 01/23 patient was transferred to
[facility] for a left heart cath. Echocardiogram revealed severe aortic stenosis and unchanged coronary disease. Patient was worked up preoperatively and taken to the OR on 01/27. Postoperatively he returned to the CVICU on Levophed,
insulin, and Precedex infusions. Precedex was weaned off and patient was extubated by 1919. He was mildly hypoxic and was given a DuoNeb and he was able to improve and oxygenation. On 01/28 postoperative day 1 patient was doing well he was D lined
transitioned off insulin drip and made telemetry status. On 01/29 postoperative day 2 patient wires were pulled and chest tubes were discontinued he was tolerating low-dose beta-blockers. On 01/30 postoperative day 3 patient's Cordis was removed and
the lisinopril was started. On 01/31 postoperative day 4 patient's hemoglobin was 7.5 he was given 1 unit of packed red blood cells followed by 40 mg of IV Lasix. He had a short run of atrial fibrillation and NSVT. Repeat echocardiogram showed an
EF of 40% and QTc was 560 therefore Amio was placed on hold. Patient was placed n.p.o. for EP evaluation. Later in the evening patient converted into ventricular tachycardia and was defibrillated 3 times. Patient did not receive CPR but was
started on lidocaine post ROSC. On 02/01 postoperative day 5 patient continued to have runs of NSVT and was taken to the Assignment Clerk. Left heart cath revealed patent bypass with good flows but he did receive a Medtronic ICD. He was then started on
amiodarone 400 mg 3 times daily and lidocaine was discontinued. On 02/02 postoperative day 6, patient was transition to 200 mg twice daily of amiodarone x 1 month and then 200 mg daily. He was deemed stable for discharge with that medication
regimen.
Home medication changes:
see below
Discharge Plan
-
Patient Disposition: Home (Routine Discharge)
Discharge Diagnosis/Procedures: aortic valve replacement, CABG x 2, left atrial appendage clip, 02/01 HOME THERAPY TEACHER-defibrillation placement and cardiac cath
Condition: Good
Diet: Low Cholesterol and Low Sodium
Activity: No strenuous activity
Driving Restrictions: Not until seen by your Dr
Bathing Restrictions: OK to Shower
Other Services: Cardiac Rehab
Specialty Instructions: Weigh Daily- Call MD for wt gain/loss 3 lbs overnight/5 lbs in 1 week
Activity Restrictions/Additional Instructions:
ACTIVITY:
-No strenuous activity: no heavy lifting, pushing, pulling anything over 15 pounds for one month
-continue to use stairs as tolerated
DRIVING RESTRICTIONS:
-No driving for one month or until approved by your surgeon
WOUND CARE:
-Shower daily. Use soap & water.
-No lotions, creams or powders on incision area.
DIET:
-continue a low fat/low cholesterol diet.
-IF you are diabetic, continue carb controlled diet.
CARDIAC REHAB:
-Please make appointment to start in 5-6 weeks with your local hospital program. (See Cardiac Rehabilitation Discharge Booklet).
SPECIALTY INSTRUCTIONS:
-Weigh yourself daily. Call your physician for any weight gain/loss of 3 lbs overnight or 5 lbs in one week.
-REPORT any clicking noise or uneven appearance of your sternum to your surgeon immediately.
-If you smoke, you are instructed to quit. The [place] smoking hotline phone number is [phone]
Stand Alone Forms: DC Instructions- Cath/EP Lab, DC Inst - Implanted Device
Referrals:
CT Transitional Care Nurse [Outside] (The Cardiothoracic Transitional Care Nurse will call you to set up a visit in 1-2 days.)
[facility]. Cardiac Rehab [Outside] - 03/06/25 1:00 pm
(Cardiac Rehab Orientation appointment and� First Exercise appointment is on _Tuesday 03/06 at 1:00 pm___
The Cardiac Rehab gym is located on the first floor of the [facility].)
Sami Dunne MD [Family Provider] -
Valentin Garza MD [Active] - 03/13/25 2:00 pm
Pedro Foy MD [Active] - 02/27/25 12:45 pm
Additional Discharge Medication Instructions: please take amiodarone 200mg twice a day for thirty days and then 200mg daily after
Prescriptions:
New
acetaminophen 325 mg Tablet
650 mg PO Q4HPRN PRN (Reason: mild pain,headache,temp >101F ) Qty: 0 0RF
gabapentin 100 mg Capsule
100 mg PO TID Qty: 30 0RF
lisinopril 2.5 mg Tablet
2.5 mg PO DAILY Qty: 30 1RF
metoprolol succinate [Toprol XL] 50 mg tablet extended release 24 hr
50 mg PO DAILY Qty: 30 1RF
pantoprazole 40 mg Tablet,Delayed Release (Dr/Ec)
40 mg PO DAILY Qty: 30 1RF
amiodarone 200 mg tablet
200 mg PO BID Qty: 90 2RF
Rx Instructions:
Please take 200mg twice a day for 1 month and then 200mg daily
oxycodone 5 mg tablet
5 mg PO Q6HPRN PRN (Reason: pain) Qty: 7 0RF
Continued
rosuvastatin 40 mg Tablet
40 mg PO DAILY
aspirin 81 mg Capsule
81 mg PO DAILY
magnesium 250 mg Tablet
250 mg PO DAILY
melatonin 10 mg Tablet
10 mg PO HS PRN (Reason: sleep)
vit [id number] D3-calc cit-Zn
1,000 mg PO DAILY
clopidogrel [Plavix] 75 mg Tablet
75 mg PO DAILY
Discontinued
lisinopril 10 mg Tablet
10 mg PO DAILY
Discharge Orders:
Discharge Patient (As Directed); Ordered 02/02/25
Ordered By: Betsy Aquino
Care Plan Goals
Care Plan Goals:
Problem: Readiness for enhanced knowledge related to diagnosis and treatment plan
Goal: Understand your diagnosis and treatment plan needs, including medications if applicable.
Instructions: Know your diagnosis, underlying causes and treatment plan options, including medications if applicable. Consult with your health care team to learn about your diagnosis and treatment plan, including medications if applicable.
Discharge Date and Time
Print Language: GRENADIAN
--- NOTE | 2025-02-02 09:33 | W.PN.CARDCBS ---
Today's Communication / Plan
-
Amio 200 mg twice daily at discharge x 1 month and then daily thereafter
1 month driving restrict
Outpatient wound check in 7 to 10 days
Discharge today by primary service
Impression / Plan
-
PCP: Fani Mayen MD
CDY: Jimy Garza MD
Impression:
Polymorphic VT with LOC, SCD
- defib x3 (appeared polymorphic on telemetry)
- Amiodarone held 01/31 AM; lidocaine gtt started
Admitted to [facility] with near syncope and hypotension 01/22/25
Transferred to for cardiac cath 01/23/25
Nonischemic myocardial injury with troponin elevation due to severe , peak Troponin at [facility] 4646 (equivalent to 46 on assay)
Severe progressive symptomatic aortic stenosis
Status post 25 mm bioprosthetic AVR 01/27/2025
CAD
Status post CABG x 2 with sequential WILSON to LAD and diagonal 01/27/2025
s/p LAD PCI w/2 overlapping DONNELL at 07/06/24
Status post left atrial appendage clip 35 mm 01/27/2025
LBBB
New nonischemic cardiomyopathy EF 25-30%
Trileaflet, but functionally bicuspid AV with moderate peak/mean 56.7/33.3 mmHg and CHIDI 0.78 cm sq by echo at [facility] 12/05/24
Carotid disease, s/p R CEA (2017), LICS 50-70%
HTN
HLD
Echo 12/05/24: [facility] study, EF 55 to 60%, calcified anatomically trileaflet but functionally bicuspid AV with moderate peak/mean 56.7/33.3 mmHg and CHIDI 0.78 cm sq, mild MR
Echo 01/24/25: EF 40%, global hypokinesis with akinesis of the distal anterior wall, mild to moderate MR, severe aortic stenosis peak/mean 52/33 mmHg with CHIDI 0.7 cm sq
Echo 01/31/25: EF 40% global hypokinesis (46% simpsons), mild RV dilation, mild to mod MR, #25 lawson Inspiris Resilia valve mean gradient 14 mmHg
Cardiac catheterization 01/23/2025: LM: Normal. LAD: Patent overlapping Ziggy DONNELL mid LAD, diagonal with 60% mid stenosis. Left circumflex: Patent. RCA: Proximal 40% stenosis, 40% distal stenosis. PDA proximal 40% stenosis LV% with
anterolateral and apical hypokinesis. -LVEDP 25, no evidence of acute HF
Intra/postop JOVANA 01/27/2025: EF 40% with mildly reduced LV function. Status post 25 mm bioprosthetic AVR well-seated with no perivalvular leak, mean gradient 10
PLAN:
-He has been discharged today by primary service
-Would give 400 mg of amiodarone this morning and then discharge on 200 mg of amiodarone twice daily x 1 month and then 200 mg daily thereafter. I personally reviewed his ECGs. Of note he had a left bundle branch block preimplant and then is paced
post implant which would also prolong his QT interval mildly. He has not had further sustained arrhythmias and rare nonsustained arrhythmias.
-Labs noted
-Reviewed chest x-ray post implant demonstrating stable positions of the right atrial right ventricular and left bundle branch area leads
-continue asa, plavix, crestor
-EF 40% by post op JOVANA. continue toprol, lisinopril. consider aldactone and SGLT2 inhibitor as BP allows as outpatient
-continue post op care
-Reviewed post device limitations and he is on a 1 month driving restriction for his arrhythmias
HPI: 64 y/o white male, PMH sig for CAD, recent LAD PCI w/2 overlapping DONNELL (07/06/24), LBBB, moderate , taking DAPT w/asa, plavix.
Presented to [facility] ER after exertional chest pain on exercise bike. He felt like he was going to pass out, laid down on a bed and called 911. He was hypotensive and ashen. CXR was suspected to be pulmonary edema. HS troponin at 4646, CPK 4961, MB
600 and still trending. Echo this morning with mod-severe LVS dysfunction, EF 25-30%, anteroseptal HK, mod-sev (PG/MG 58.5/37.2, CHIDI 0.8cm2). This is worse than echo 12/05/24 where EF was 55-60%, no WMA and mod (PG/MG 56.7/33.3, CHIDI 0.78cm2).
He was started on heparin and transferred today for [facility].
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
Subjective
Date of Service: February 02, 2025
Feels well
Objective
Labs:
02/02/25 06:00
02/02/25 04:18
Labs
Hgb Cancelled 02/02/25 06:00
Hct Cancelled 02/02/25 06:00
Plt Count Cancelled 02/02/25 06:00
PT 17.7 Sec (11.4-14.6) H 01/27/25 16:26
INR 1.43 01/27/25 16:26
APTT 31.8 Sec (23.4-35.0) 01/27/25 16:26
Sodium 133 mmol/L (135-145) L 02/02/25 04:18
Potassium 4.6 mmol/L (3.5-5.1) 02/02/25 04:18
BUN 16 mg/dl (9-20) 02/02/25 04:18
Creatinine 0.8 mg/dL (0.7-1.3) 02/02/25 04:18
Glucose 112 mg/dl (70-99) H 02/02/25 04:18
Troponins
01/31/25 01/31/25 02/01/25
20:00 20:11 03:44
Troponin I Cancelled 0.952 H* 0.812 H*
02/01/25 02/01/25
08:00 14:00
Troponin I Cancelled Cancelled
Vital Signs and I&O:
Vital Signs
Temp Pulse Resp BP Pulse Ox
98.2 F 74 16 97/52 92
02/02/25 08:00 02/02/25 08:34 02/02/25 08:00 02/02/25 08:34 02/02/25 09:21
Vital Signs
Temp Pulse Resp BP Pulse Ox
98.2 F 74 16 97/52 92
02/02/25 08:00 02/02/25 08:34 02/02/25 08:00 02/02/25 08:34 02/02/25 09:21
Intake & Output
01/31/25 02/01/25 02/02/25 02/03/25
06:59 06:59 06:59 06:59
Intake Total 410 / 410 770 / 770 30 / 30
Output Total 400 / 400 1225 / 1225 2150 / 2150
Balance -455 / -455 -2120 / -2120
Physical Exam
Physical Exam
����Physical Exam
���������������������General:��no apparent distress, not acutely ill
���������������������������Neck:��supple. no meningeal signs. normal psoterior pharynx
������������������������
���������������������������Heart:��s1/s2 regular rate and rhythm, no murmur. equal radial pulses.
Device site is clean dry and intact without hematoma
Chest x-ray and telemetry reviewed
��������������������������Lungs: ��no acute respiratory distress. clear bilaterally
����������������������Abdomen:�normal bowel sounds. not tender. no CVAT
��������������������������Neuro:��alert and oriented. no focal neurological deficits
������������������������������Skin: ��no rash
�����������������������Psychiatric:�well kept. interactive and cooperative
�����������������������Extremities:��no edema. no calf tenderness. negative homans. good distal pulses
��
�
[2025-02-02 10:11] VITALS: BP 128/69
[2025-02-02] MEDS: ZESTRIL 2.5 MG PO (10:12)
--- NOTE | 2025-02-02 10:25 | W.[place]-PDMP ---
[place]-PD[place]
-
Checked the [place]- Prescription Drug Monitoring Program website, no red flags identified; safe to proceed with prescription.
--- NOTE | 2025-02-02 12:25 | PTCARENOTE ---
IV lines and tele monitor removed. Pressure dressing removed from PPM site, aquacell dressing maintained. Discharge instructions, follow up appointments and medication list reviewed w the pt and his family, questions encouraged.
== END 2025-02-02 12:26 | disposition home or self-care (01) | DRG 216 ==
LOC: CVICU 12:01
PROVIDERS: Anesthesiology; Clinical Nurse Specialist Acute Care; Internal Medicine Cardiovascular Disease; Internal Medicine Interventional Cardiology; Nurse Practitioner; Physician Assistant Medical; ADMITTING PHYSICIAN Internal Medicine Interventional Cardiology; ATTENDING PHYSICIAN Thoracic Surgery (Cardiothoracic Vascular Surgery); CONSULT PHYSICIAN Internal Medicine; FAMILY PHYSICIAN Family Medicine
PROC: B2111ZZ Fluoroscopy of Multiple Coronary Arteries using Low Osmolar Contrast (ICD-10-PCS; 2025-01-23)
PROC: 4A023N7 Measurement of Cardiac Sampling and Pressure, Left Heart, Percutaneous Approach (ICD-10-PCS; 2025-01-23)
PROC: B2151ZZ Fluoroscopy of Left Heart using Low Osmolar Contrast (ICD-10-PCS; 2025-01-23)
PROC: B24BZZ4 Ultrasonography of Heart with Aorta, Transesophageal (ICD-10-PCS; 2025-01-27)
PROC: 02L70CK Occlusion of Left Atrial Appendage with Extraluminal Device, Open Approach (ICD-10-PCS; 2025-01-27)
PROC: 5A1221Z Performance of Cardiac Output, Continuous (ICD-10-PCS; 2025-01-27)
PROC: 30233R1 Transfusion of Nonautologous Platelets into Peripheral Vein, Percutaneous Approach (ICD-10-PCS; 2025-01-27)
PROC: 02RF08Z Replacement of Aortic Valve with Zooplastic Tissue, Open Approach (ICD-10-PCS; 2025-01-27)
PROC: 02110Z9 Bypass Coronary Artery, Two Arteries from Left Internal Mammary, Open Approach (ICD-10-PCS; 2025-01-27)
PROC: 5A2204Z Restoration of Cardiac Rhythm, Single (ICD-10-PCS; 2025-01-31)
PROC: 30233M1 Transfusion of Nonautologous Plasma Cryoprecipitate into Peripheral Vein, Percutaneous Approach (ICD-10-PCS; 2025-01-31)
PROC: 0JH609Z Insertion of Cardiac Resynchronization Defibrillator Pulse Generator into Chest Subcutaneous Tissue and Fascia, Open Approach (ICD-10-PCS; 2025-02-01)
PROC: 02H43KZ Insertion of Defibrillator Lead into Coronary Vein, Percutaneous Approach (ICD-10-PCS; 2025-02-01)
PROC: 02H63KZ Insertion of Defibrillator Lead into Right Atrium, Percutaneous Approach (ICD-10-PCS; 2025-02-01)
PROC: 02HK3KZ Insertion of Defibrillator Lead into Right Ventricle, Percutaneous Approach (ICD-10-PCS; 2025-02-01)
PROC: B2181ZZ Fluoroscopy of Left Internal Mammary Bypass Graft using Low Osmolar Contrast (ICD-10-PCS; 2025-02-01)
DX: I21.4 Non-ST elevation (NSTEMI) myocardial infarction (principal); I46.2 Cardiac arrest due to underlying cardiac condition; I49.01 Ventricular fibrillation; I50.41 Acute combined systolic (congestive) and diastolic (congestive) heart failure; I47.29 Other ventricular tachycardia; I42.8 Other cardiomyopathies; D62 Acute posthemorrhagic anemia; J98.11 Atelectasis; E87.1 Hypo-osmolality and hyponatremia; Q23.81 Bicuspid aortic valve; I25.10 Atherosclerotic heart disease of native coronary artery without angina pectoris; I35.0 Nonrheumatic aortic (valve) stenosis; I44.7 Left bundle-branch block, unspecified; I65.22 Occlusion and stenosis of left carotid artery; E78.5 Hyperlipidemia, unspecified; I11.0 Hypertensive heart disease with heart failure; I48.91 Unspecified atrial fibrillation; E86.1 Hypovolemia; E83.51 Hypocalcemia; E83.52 Hypercalcemia; Z79.02 Long term (current) use of antithrombotics/antiplatelets; Z79.82 Long term (current) use of aspirin; Z79.899 Other long term (current) drug therapy; Z82.49 Family history of ischemic heart disease and other diseases of the circulatory system; Z95.5 Presence of coronary angioplasty implant and graft
CPT/HCPCS: 88305; 88311; 93308; 33249; 70355; 70496; 70498; 71045; 71046; 71275; 80048; 80053; 80061; 81003; 81015; 82330; 82550; 82553; 82565; 82805; 82810; 82947; 82962; 83036; 83735; 84132; 84302; 84484; 84520; 85014; 85018; 85027; 85049; 85576; 85610; 85730; 86850; 86900; 86901; 86920; 87070; 93005; 93306; 93312; 93320; 93321; 93325; 93455; 93458; 93880; 94002; 94640; C1769; C1892; C1894; J2916; P9016; P9073; Q9967

== ENCOUNTER 2025-03-20 08:45 | Outpatient (RCR) | payer BC, SELFPAY | END 2025-03-20 23:59 | disposition home or self-care (01) | LOC: CRHB 08:45 | PROVIDERS: ATTENDING PHYSICIAN Internal Medicine Cardiovascular Disease; FAMILY PHYSICIAN Family Medicine | DX: Z95.1 Presence of aortocoronary bypass graft (principal); I21.4 Non-ST elevation (NSTEMI) myocardial infarction (principal); Z95.4 Presence of other heart-valve replacement; I25.2 Old myocardial infarction | CPT/HCPCS: 93797; 93798; G0422; G0423 ==

== ENCOUNTER → 2025-04-05 13:38 | Outpatient (REF) | payer BC, SELFPAY | LOC: RAD 13:38 | PROVIDERS: ATTENDING PHYSICIAN Orthopaedic Surgery; FAMILY PHYSICIAN Family Medicine | DX: M23.92 Unspecified internal derangement of left knee (principal) | CPT/HCPCS: 27369; 73580; 73700 ==

== ENCOUNTER 2025-04-21 09:42 | Outpatient (RCR) | payer BC, SELFPAY | END 2025-04-21 23:59 | disposition home or self-care (01) | LOC: CRHB 09:42 | PROVIDERS: ATTENDING PHYSICIAN Internal Medicine Cardiovascular Disease; FAMILY PHYSICIAN Family Medicine | DX: I21.4 Non-ST elevation (NSTEMI) myocardial infarction (principal); I25.10 Atherosclerotic heart disease of native coronary artery without angina pectoris (principal); Z95.1 Presence of aortocoronary bypass graft; Z95.4 Presence of other heart-valve replacement; I25.2 Old myocardial infarction | CPT/HCPCS: 93797; 93798 ==

== ENCOUNTER 2025-04-26 10:02 | Outpatient (RCR) | payer BC, SELFPAY | END 2025-04-26 10:08 | disposition home or self-care (01) | LOC: CRHB 10:02 | PROVIDERS: ATTENDING PHYSICIAN Internal Medicine Cardiovascular Disease; FAMILY PHYSICIAN Family Medicine | DX: I25.10 Atherosclerotic heart disease of native coronary artery without angina pectoris (principal); Z95.1 Presence of aortocoronary bypass graft; Z95.4 Presence of other heart-valve replacement; I25.2 Old myocardial infarction | CPT/HCPCS: 93797; 93798 ==